=== PATIENT | male | born 1955 | race Hispanic/Latino ===

== ENCOUNTER 2016-12-13 12:52 | Observation (INO) | payer BC, MEDICAID ==
[2016-12-13 12:52] VITALS: BMI 25.0
[2016-12-13 13:03] VITALS: RESP 18
[2016-12-13] MEDS ORDERED: Sodium Chloride 0.9% 1,000 ML IV STA (13:26)
[2016-12-13 13:27] VITALS: TEMP 98
--- NOTE | 2016-12-13 13:28 | ED PDOC ---
Arrival/HPI - General Chief Complaint: Abdominal Pain Time Seen by Provider: 12/13/16 13:16 Historian: Patient - History of Present Illness Narrative History of Present Illness (Text): 12/13/16 13:25 A 61 year old male presents to the emergency department complaining of abdominal discomfort. Patient notes nausea and loss of appetite. Patient reports he had surgery done on 11/30/16 to remove an abdominal hernia. Patient denies any fever, vomiting, diarrhea, constipation, chest pain, shortness of breath, headache, dizziness, vision changes or any other complaints. Surgeon: Dr. Tripp Time/Duration: Prior to Arrival Symptom Course: Unchanged Quality: Other Context: Other Past Medical History - Provider Review Nursing Documentation Reviewed: Yes - Past History Past History: Non-Contributing - Infectious Disease Hx of Infectious Diseases: None - Tetanus Immunization Tetanus Immunization: Unknown - Reproductive Currently : No - Past Medical History Past Medical History: No Previous - Cardiac Hx Hypertension: Yes Hx Pacemaker: No - Pulmonary Hx Tuberculosis: No - Neurological Hx Paralysis: No - HEENT Hx HEENT Disorder: No - Renal Hx Renal Disorder: No - Endocrine/Metabolic Hx Endocrine Disorders: No - Hematological/Oncological Hx Blood Transfusions: No Hx Blood Transfusion Reaction: No - Integumentary Hx Dermatological Disorder: No Hx Basal Cell Carcinoma: No Hx Knowles: No Hx Cellulitis: No Hx Eczema: No Hx Melanoma: No Hx Psoriasis: No Hx Squamous Cell Carcinoma: No - Musculoskeletal/Rheumatological Hx Musculoskeletal Disorders: Yes - Gastrointestinal Hx Gastrointestinal Disorders: Yes Hx Bowel Surgery: Yes Hx Colitis: Yes Hx Colostomy: Yes Other/Comment: intestinal cyst historycolostomy - Genitourinary/Gynecological Hx Sexually Transmitted Diseases: No - Psychiatric Hx Anxiety: Yes Hx Depression: Yes Hx Substance Use: Yes (PAST COCAINE USE) - Surgical History Hx Orthopedic Surgery: Yes Other/Comment: Abdominal - colon resection - Anesthesia Hx Anesthesia Reactions: No Hx Malignant Hyperthermia: No - Suicidal Assessment Feels Threatened In Home Enviroment: No Family/Social History - Physician Review Nursing Documentation Reviewed: Yes Family/Social History: No Known Family HX Smoking Status: Heavy Smoker > 10 Cigarettes Daily Hx Alcohol Use: Yes (WAS 6PK/DAY;NOW ON OCCASION) Hx Substance Use: Yes (PAST COCAINE USE) Hx Substance Use Treatment: No Allergies/Home Meds Allergies/Adverse Reactions: Allergies seasonal Allergy (Uncoded 12/13/16 13:03) CONGESTION Home Medications: Home Meds Medication Instructions Recorded Confirmed Gabapentin [Neurontin] 100 mg PO DAILY 11/27/16 12/13/16 hydrOXYzine HCl [Atarax] 50 mg PO TID 11/27/16 12/13/16 Cyclobenzaprine [Flexeril] 0 mg PO DAILY 12/13/16 12/13/16 Naproxen [Anaprox] 500 mg PO BID PRN 12/13/16 12/13/16 Review of Systems - Physician Review All systems were reviewed & negative as marked: Yes - Review of Systems Constitutional: absent: Fevers Eyes: absent: Vision Changes Respiratory: absent: SOB Cardiovascular: absent: Chest Pain Gastrointestinal: Abdominal Pain, Nausea, Appetite Changes. absent: Constipation, Diarrhea, Vomiting Neurological: absent: Headache, Dizziness Physical Exam Vital Signs Reviewed: Yes Vital Signs Temp Pulse Resp BP Pulse Ox 12/13/16 14:52 63 18 133/87 98 12/13/16 12:59 98.0 F 92 H 18 136/90 96 Temperature: Afebrile Blood Pressure: Hypertensive Pulse: Regular Respiratory Rate: Normal Appearance: Positive for: Well-Appearing, Non-Toxic, Comfortable Pain Distress: None Mental Status: Positive for: Alert and Oriented X 3 - Systems Exam Head: Present: Atraumatic, Normocephalic Pupils: Present: PERRL Conjunctiva: Present: Normal Mouth: Present: Moist Mucous Membranes Neck: Present: Normal Range of Motion Respiratory/Chest: Present: Clear to Auscultation, Good Air Exchange. No: Respiratory Distress, Accessory Muscle Use Cardiovascular: Present: Regular Rate and Rhythm, Normal S1, S2. No: Murmurs Abdomen: Present: Normal Bowel Sounds, Scars (old surgical scar with dry area; no warmth or swelling). No: Tenderness, Distention, Peritoneal Signs Back: Present: Normal Inspection Upper Extremity: Present: Normal Inspection. No: Cyanosis, Edema Lower Extremity: Present: Normal Inspection. No: Edema Neurological: Present: GCS=15, CN II-XII Intact, Speech Normal Skin: Present: Warm, Dry, Normal Color. No: Rashes Psychiatric: Present: Alert, Oriented x 3, Normal Insight, Normal Concentration Medical Decision Making ED Course and Treatment: 12/13/16 13:25 Impression: A 61 year old male with abdominal discomfort. Patient notes nausea and a loss of appetite. Patient recently had abdominal surgery to remove a hernia. Plan: -- Abdomen and pelvis CT -- Chest xray -- EKG -- Labs -- Urinalysis -- Pepcid, IV fluids and Zofran -- Reassess and disposition - Lab Interpretations I have reviewed the lab results: Yes - Medication Orders Current Medication Orders: Discontinued Medications Famotidine (Pepcid) 20 mg IVP STAT STA Stop: 12/13/16 13:25 Last Admin: 12/13/16 13:48 Dose: 20 MG IVP Administration Document 12/13/16 13:48 OCS (Rec: 12/13/16 13:48 OCS [id number]) Charges for Administration # of IVP Administrations 1 Sodium Chloride (Sodium Chloride 0.9%) 1,000 mls @ 999 mls/hr IV .Q1H1M STA Stop: 12/13/16 14:26 Last Admin: 12/13/16 13:48 Dose: 999 MLS/HR eMAR Start Stop Document 12/13/16 13:48 OCS (Rec: 12/13/16 13:48 OCS [id number]) Intravenous Solution Start Date 12/13/16 Start Time 13:40 End Date 12/13/16 End time 14:41 Total Infusion Time 61 Iohexol (Omnipaque 240 (50 Ml)) Confirm Administered Dose 50 ml .ROUTE .STK-MED ONE Stop: 12/13/16 14:03 Ondansetron HCl (Zofran Inj) 4 mg IVP STAT STA Stop: 12/13/16 13:25 Last Admin: 12/13/16 13:39 Dose: 4 MG IVP Administration Document 12/13/16 13:39 OCS (Rec: 12/13/16 13:48 OCS [id number]) Charges for Administration # of IVP Administrations 1 ED OBSERVATION Discharge: Yes Date of observation admission: 12/13/16 Time of observation admission: 13:20 - Observation admission statement Patient is being placed in observation because:: Abdominal pain - Goals of Observation Goals of observation are:: Monitor and treat symptoms - Progress Note Progress Note: 12/13/16 13:20 Patient with abdominal pain. Will re-evaluate after medication. EKG shows NSR at [address]-segment elevations, normal intervals. Interpreted by me. 12/13/16 15:20 On re-evaluation, patient states his abdominal pain has improved after treatment. 12/13/16 16:46 Patient resting comfortably, in no acute distress. Pending CT results. Report Date : 12/13/2016 17:59:03 PROCEDURE: CT Abdomen and Pelvis with contrast Dictator : Shivam Vinson MD IMPRESSION: Satisfactory postoperative status. Additional benign and/or incidental findings described above. Report Date : 12/13/2016 18:14:19 Procedure: Chest xray Dictator : Shivam Vinson MD IMPRESSION: No active disease. No significant interval change compared to the prior examination(s). 12/13/16 18:25 Patient resting comfortably. 12/13/16 18:51 CT is unremarkable. Labs are unremarkable. Patient is tolerating po. Case discussed with Dr. Tripp who agreed with discharging patient and have him following up with him. - Scribe Statement The provider has reviewed the documentation as recorded by the Scribe aYri Stoner Provider Scribe Attestation: All medical record entries made by the Scribe were at my direction and personally dictated by me. I have reviewed the chart and agree that the record accurately reflects my personal performance of the history, physical exam, medical decision making, and the department course for this patient. I have also personally directed, reviewed, and agree with the discharge instructions and disposition. Disposition/Present on Arrival - Present on Arrival Any Indicators Present on Arrival: No History of DVT/PE: No History of Uncontrolled Diabetes: No Urinary Catheter: No History of Decub. Ulcer: No History Surgical Site Infection Following: Abdominal Surgery - Disposition Have Diagnosis and Disposition been Completed?: Yes Diagnosis: Abdominal pain Disposition: HOME/ ROUTINE Disposition Time: 13:20 Patient Plan: Discharge Patient Problems: Current Active Problems Problem Status Diagnosed Abdominal pain Acute Condition: GOOD
[2016-12-13 13:51] LABS: ADD MANUAL DIFF? NO
[2016-12-13 14:01] LABS: BASO # 0.02 K/mm3 (0.0-2.0); BASO % 0.2 % (0.0-3.0); EOS # 0.2 (0.0-0.7); EOS % 1.6 % (1.5-5.0); GRAN % 70.8 % (50.0-68.0); HEMATOCRIT 48.9 % (42.0-52.0); LYMPH # 2.2 (1.2-3.4); LYMPH % 19.5 % (22.0-35.0); MEAN CELL VOLUME 89.9 fL (80.0-105.0); MEAN CORPUSCULAR HGB CONC 35.6 g/dl (31.0-37.0); MEAN PLATELET VOLUME 9.3 fl (7.0-11.0); MONO # 0.9 (0.1-0.6); MONO % 7.9 % (1.0-6.0); PLATELET COUNT 416 10^3/uL (120.0-450.0); RED CELL DISTRIBUTION WIDTH 14.5 % (11.5-14.5)
[2016-12-13] MEDS ORDERED: Iohexol 240 (50 ml) ONE (14:02)
[2016-12-13 14:05] LABS: ALB/GLOB RATIO 1.1 (1.1-1.8); ALKALINE PHOSPHATASE 57 U/L (38-133); ALT/SGPT 10 U/L (7-56); AMYLASE 60 U/L (35-125); AST/SGOT 14 U/L (15-59); BILIRUBIN,TOTAL 0.6 mg/dL (0.2-1.3); BLOOD UREA NITROGEN 16 mg/dL (7-21); CALCIUM 9.7 mg/dL (8.4-10.5); CARBON DIOXIDE 33 mmol/L (21-33); CHLORIDE 96 mmol/L (98-107); GFR AFRICAN-AMERICAN > 60; GLUCOSE,RANDOM 125 mg/dL (70-110); LIPASE 159 U/L (23-300); POTASSIUM 3.7 mmol/L (3.6-5.0); SODIUM 139 mmol/L (132-148); TOTAL PROTEIN 8.1 g/dL (5.8-8.3)
[2016-12-13 14:08] LABS: INR 1.02 (0.93-1.08); PARTIAL THROMBOPLASTIN TIME 29.6 Seconds (23.7-30.8)
[2016-12-13 14:21] LABS: TROPONIN I < 0.01 ng/mL
[2016-12-13 15:08] VITALS: O2SAT 98
[2016-12-13 15:17] LABS: PH,URINE 6.5 (4.7-8.0); URINE BILIRUBIN NEGATIVE (NEGATIVE); URINE BLOOD SMALL (NEGATIVE); URINE GLUCOSE (UA) NEGATIVE (NEGATIVE); URINE KETONE NEGATIVE (NEGATIVE); URINE LEUKOCYTE ESTERASE NEGATIVE Leu/uL (NEGATIVE); URINE PROTEIN NEGATIVE mg/dL (<30 mg/dL); URINE UROBILINOGEN 0.2 E.U./dL (<1 E.U./dL)
[2016-12-13 15:18] LABS: URINE APPEARANCE CLEAR (CLEAR); URINE COLOR YELLOW (YELLOW)
[2016-12-13 15:22] LABS: URINE BACTERIA FEW (NEG); URINE EPITHELIAL CELLS 0 - 2 /hpf (0-5); URINE WBC 0 - 2 /hpf (0-6)
[2016-12-13] MEDS ORDERED: Iohexol 350 MG/100 ML VIAL ONE (17:17)
--- NOTE | 2016-12-13 18:00 | CT ---
PROCEDURE: CT Abdomen and Pelvis with contrast HISTORY: abdominal pain - post incisional hernia repair Relevant surgical history: Partial sigmoidectomy. COMPARISON: 10/27/2016. CT abdomen and pelvis. TECHNIQUE: Contrast dose: 100 cc Omnipaque 350 Radiation dose: Total exam DLP = 49.32 mGy-cm. FINDINGS: LOWER THORAX: Unremarkable. LIVER: Unremarkable. No gross lesion or ductal dilatation. GALLBLADDER AND BILE DUCTS: Unremarkable. PANCREAS: Unremarkable. No gross lesion or ductal dilatation. SPLEEN: Unremarkable. ADRENALS: Unremarkable. No mass. KIDNEYS AND URETERS: Unremarkable. No hydronephrosis. No solid mass. VASCULATURE: Unremarkable. No aortic aneurysm. BOWEL: Expected postoperative findings left lower quadrant related to incisional hernia repair with multiple small loculated seromas interposed between the rectus muscle and skin surface. The largest measured on the coronal images 2 0.9 cm. No intraperitoneal component. Greater degree of prominence midline periumbilical hernia likely represents distention of bowel rather than a new midline hernia. Proximal obstruction. Anastomotic suture line sigmoid colon unremarkable, unchanged. There is focal fecal debris, focal impaction without more proximal obstruction. However this finding was seen previously. APPENDIX: Normal appendix. PERITONEUM: Unremarkable. No free fluid. No free air. LYMPH NODES: Unremarkable. No enlarged lymph nodes. BLADDER: Unremarkable. REPRODUCTIVE: Unremarkable. BONES: No acute fracture. OTHER FINDINGS: None. IMPRESSION: Satisfactory postoperative status. Additional benign and/or incidental findings described above.
--- NOTE | 2016-12-13 18:15 | RAD ---
HISTORY: cough COMPARISON: 06/01/2016. TECHNIQUE: Chest PA and lateral FINDINGS: LUNGS: Paul for hyperinflation PLEURA: No significant pleural effusion identified. No pneumothorax apparent. CARDIOVASCULAR: Normal. OSSEOUS STRUCTURES: No significant abnormalities. VISUALIZED UPPER ABDOMEN: Normal. OTHER FINDINGS: None. IMPRESSION: No active disease. No significant interval change compared to the prior examination(s).
[2016-12-13 19:09] VITALS: BP 126/68; PULSE 65
--- NOTE | 2016-12-14 10:01 | CARD ---
APPROVED REPORT EKG Measurement Heart [id number] [id number] <Conclusion> Normal sinus rhythm NSSTW changes [id number] changes No change
== END 2016-12-13 18:55 | disposition home or self-care (01) ==
LOC: ED 12:52 → EROBSV 13:20
PROVIDERS: ADMIT Internal Medicine; ATTEND Internal Medicine
DX: R10.9 Unspecified abdominal pain (principal); F17.210 Nicotine dependence, cigarettes, uncomplicated; I10 Essential (primary) hypertension
CPT/HCPCS: 71020; 74177; 80053; 81001; 82150; 82550; 83605; 83615; 83690; 84484; 85025; 85610; 85730; 93005; 96361; 96374; 96375; 99283; G0378; J2405; J7040; Q9966

== ENCOUNTER 2017-01-09 15:35 | Inpatient (IN) | payer MEDICAID ==
[2017-01-09 15:35] VITALS: BMI 25.0
--- NOTE | 2017-01-09 15:44 | ED PDOC ---
Arrival/HPI - General Historian: Patient - History of Present Illness Time/Duration: Other (since yesterday) Context: Home - General Time Seen by Provider: 01/09/17 15:40 - History of Present Illness Narrative History of Present Illness (Text): 01/09/17 15:44 Wu Smallwood is a 61 year old male, whose past medical history includes depression, anxiety and hypertension, who presents to the emergency room complaining of suicidal ideation, anxiety, and feeling depressed since yesterday. He stated his medication are not longer working. He said last time he had suicidal ideation was last night. He lives alone, and he had financial problems. Family member lives in [place]. He smokes Marijuana daily. He denies hallucination, paranoia, or alcohol abuse. (Adalberto Ennis) Past Medical History - Provider Review Nursing Documentation Reviewed: Yes - Past History Past History: Non-Contributing - Infectious Disease Hx of Infectious Diseases: None - Tetanus Immunization Tetanus Immunization: Unknown - Reproductive Currently : No - Past Medical History Past Medical History: No Previous - Cardiac Hx Hypertension: Yes Hx Pacemaker: No - Pulmonary Hx Tuberculosis: No - Neurological Hx Paralysis: No - HEENT Hx HEENT Disorder: No - Renal Hx Renal Disorder: No - Endocrine/Metabolic Hx Endocrine Disorders: No - Hematological/Oncological Hx Blood Transfusions: No Hx Blood Transfusion Reaction: No - Integumentary Hx Dermatological Disorder: No Hx Basal Cell Carcinoma: No Hx Knowles: No Hx Cellulitis: No Hx Eczema: No Hx Melanoma: No Hx Psoriasis: No Hx Squamous Cell Carcinoma: No - Musculoskeletal/Rheumatological Hx Musculoskeletal Disorders: Yes - Gastrointestinal Hx Gastrointestinal Disorders: Yes Hx Bowel Surgery: Yes Hx Colitis: Yes Hx Colostomy: Yes Other/Comment: intestinal cyst historycolostomy - Genitourinary/Gynecological Hx Sexually Transmitted Diseases: No - Psychiatric Hx Anxiety: Yes Hx Depression: Yes Hx Substance Use: Yes (PAST COCAINE USE) - Surgical History Hx Orthopedic Surgery: Yes Other/Comment: Abdominal - colon resection - Anesthesia Hx Anesthesia Reactions: No Hx Malignant Hyperthermia: No - Suicidal Assessment Feels Threatened In Home Enviroment: No Family/Social History - Physician Review Nursing Documentation Reviewed: Yes Family/Social History: No Known Family HX Smoking Status: Heavy Smoker > 10 Cigarettes Daily Hx Alcohol Use: Yes (WAS 6PK/DAY;NOW ON OCCASION) Hx Substance Use: Yes (PAST COCAINE USE) Hx Substance Use Treatment: No Allergies/Home Meds Allergies/Adverse Reactions: Allergies seasonal Allergy (Uncoded 01/09/17 15:45) CONGESTION Home Medications: Home Meds Medication Instructions Recorded Confirmed Gabapentin [Neurontin] 100 mg PO DAILY 11/27/16 01/09/17 hydrOXYzine HCl [Atarax] 50 mg PO TID 11/27/16 01/09/17 Cyclobenzaprine [Flexeril] 0 mg PO DAILY 12/13/16 01/09/17 Naproxen [Anaprox] 500 mg PO BID PRN 12/13/16 01/09/17 Diclofenac [Diclofenac Sodium] 100 mg PO 01/09/17 Review of Systems - Review of Systems Constitutional: Normal. absent: Fatigue, Weight Change, Fevers Eyes: Normal ENT: Normal. absent: Sore Throat, Rhinorrhea Respiratory: Normal. absent: SOB, Cough, Sputum, Wheezing Cardiovascular: Normal. absent: Chest Pain, Palpitations, Edema Gastrointestinal: Normal. absent: Abdominal Pain, Nausea, Vomiting Genitourinary Male: Normal. absent: Dysuria, Frequency, Hematuria Musculoskeletal: Normal. absent: Back Pain, Neck Pain, Myalgias Skin: Normal. absent: Rash Neurological: Normal. absent: Headache, Dizziness, Focal Weakness, Gait Changes , Speech Changes, Facial Droop, Disequilibrium, Seizure Endocrine: Normal Hemo/Lymphatic: Normal Psychiatric: Anxiety, Depression, Suicidal Ideation Physical Exam Temperature: Afebrile Blood Pressure: Normal Pulse: Regular Respiratory Rate: Normal Appearance: Positive for: Well-Appearing, Non-Toxic, Comfortable Pain Distress: None Mental Status: Positive for: Alert and Oriented X 3 - Systems Exam Head: Present: Atraumatic, Normocephalic Pupils: Present: PERRL Extroacular Muscles: Present: EOMI Conjunctiva: Present: Normal Mouth: Present: Moist Mucous Membranes Neck: Present: Normal Range of Motion. No: Meningeal Signs Respiratory/Chest: Present: Clear to Auscultation, Good Air Exchange. No: Respiratory Distress, Accessory Muscle Use Cardiovascular: Present: Regular Rate and Rhythm, Normal S1, S2. No: Murmurs Abdomen: Present: Normal Bowel Sounds. No: Tenderness, Distention, Peritoneal Signs Back: Present: Normal Inspection. No: CVA Tenderness Upper Extremity: Present: Normal Inspection, Normal ROM, NORMAL PULSES, Neurovascularly Intact, Capillary Refill < 2s. No: Cyanosis, Edema Lower Extremity: Present: Normal Inspection, NORMAL PULSES, Normal ROM, Neurovascularly Intact, Capillary Refill < 2 s. No: Edema, CALF TENDERNESS Neurological: Present: GCS=15, CN II-XII Intact, Speech Normal, Motor Func Grossly Intact, Normal Sensory Function, Normal Cerebellar Funct, Norm Deep Tendon Reflexes, Gait Normal, Memory Normal Skin: Present: Warm, Dry, Normal Color. No: Rashes Psychiatric: Present: Alert, Oriented x 3 Vital Signs Temp Pulse Resp BP Pulse Ox 01/10/17 03:40 47 L 16 134/69 89 L 01/09/17 20:37 98.0 F 59 L 18 127/72 97 01/09/17 18:22 51 L 16 119/71 97 01/09/17 18:19 74 18 111/75 100 01/09/17 18:16 51 L 14 131/52 L 97 01/09/17 17:29 68 18 119/75 95 01/09/17 15:55 98.5 F 76 24 146/73 100 01/09/17 15:40 98.8 F 80 16 129/81 99 Medical Decision Making Re-evaluation Time: 19:03 Reassessment Condition: Re-examined, Improved - Lab Interpretations I have reviewed the lab results: Yes Interpretation: No sign. chg./baseline - EKG Interpretation Interpreted by ED Physician: Yes (NSR @ 71 bpm. Normal interval. No ST changes ) Type: 12 lead EKG Comparison: No previous EKG avail. ED Course and Treatment: 01/09/17 19:00 I spoke with Connie mendez. She stated she spoke with Dr. Ovalles and they are recommending admission for major depression, and cannabis abuse (Raymon, Adalberto Bah) 01/10/17 05:12 Patient was seen by Dr. Webb and not signed out, but psych needed a note of medical clearance. 01/10/17 05:13 The patient was medically cleared for psych admission. (Jasper Salinas) - Lab Interpretations Lab Results: 01/09/17 16:23 01/09/17 16:23 Lab Results 01/09/17 17:44: Urine Color Yellow, Urine Appearance Clear, Urine pH 6.5, Ur Specific [place] 1.010, Urine Protein Negative, Urine Glucose (UA) Negative, Urine Ketones Negative, Urine Blood Small H, Urine Nitrate Negative, Urine Bilirubin Negative, Urine Urobilinogen 0.2, Ur Leukocyte Esterase Negative, Urine RBC 1 - 3, Urine WBC 0 - 2, Ur Epithelial Cells 0 - 2, Urine Opiates Screen Negative, Urine Methadone Screen Negative, Ur Barbiturates Screen Negative, Ur Phencyclidine Scrn Negative, Ur Amphetamines Screen Negative, U Benzodiazepines Scrn Negative, U Oth Cocaine Metabols Negative, U Cannabinoids Screen Positive H 01/09/17 16:23: WBC 9.0, RBC 4.80, Hgb 15.4, Hct 43.0, MCV 89.6, MCH 32.1, MCHC 35.8, RDW 14.3, Plt Count 317, MPV 8.8, Gran % 66.6, Lymph % (Auto) 25.5, [place] % (Auto) 6.8 H, Eos % (Auto) 1.0 L, Baso % (Auto) 0.1, Gran # 6.01, Lymph # 2.3 , [place] # 0.6, Eos # 0.1, Baso # 0.01, Sodium 137, Potassium 3.5 L, Chloride 97, Carbon Dioxide 28, Anion Gap 16, BUN 12, Creatinine 1.0, Est GFR ( Amer) > 60, Est GFR (Non-Af Amer) > 60, Random Glucose 116 H, Calcium 9.5, Total Bilirubin 0.4, AST 16, ALT 18, Alkaline Phosphatase 52, Total Protein 7.1, Albumin 4.0, Globulin 3.1, Albumin/Globulin Ratio 1.3, Salicylates < 1 L, Acetaminophen < 10.0 L, Alcohol, Quantitative < 10 - RAD Interpretation Narrative RAD Interpretations (Text): 01/09/17 16:40 CXR: NAD (Adalberto Ennis P) Radiology Orders: 01/09/17 16:05 CHEST PORTABLE [RAD] Stat Disposition/Present on Arrival - Present on Arrival Any Indicators Present on Arrival: No History of DVT/PE: No History of Uncontrolled Diabetes: No Urinary Catheter: No History Surgical Site Infection Followin - Disposition Have Diagnosis and Disposition been Completed?: Yes Disposition Time: 19:05 Patient Plan: Admission - Disposition Diagnosis: Major depression, Cannabis abuse Disposition: HOSPITALIZED Condition: STABLE
[2017-01-09 16:29] LABS: ADD MANUAL DIFF? NO
[2017-01-09 16:36] LABS: BASO # 0.01 K/mm3 (0.0-2.0); BASO % 0.1 % (0.0-3.0); EOS # 0.1 (0.0-0.7); GRAN # 6.01 (1.4-6.5); GRAN % 66.6 % (50.0-68.0); LYMPH # 2.3 (1.2-3.4); LYMPH % 25.5 % (22.0-35.0); MEAN CELL VOLUME 89.6 fL (80.0-105.0); MEAN CORPUSCULAR HEMOGLOBIN 32.1 pg (25.0-35.0); MEAN CORPUSCULAR HGB CONC 35.8 g/dl (31.0-37.0); MEAN PLATELET VOLUME 8.8 fl (7.0-11.0); MONO # 0.6 (0.1-0.6); MONO % 6.8 % (1.0-6.0); PLATELET COUNT 317 10^3/uL (120.0-450.0); RED CELL DISTRIBUTION WIDTH 14.3 % (11.5-14.5)
[2017-01-09 16:45] LABS: ALB/GLOB RATIO 1.3 (1.1-1.8); ALKALINE PHOSPHATASE 52 U/L (38-133); ALT/SGPT 18 U/L (7-56); AST/SGOT 16 U/L (15-59); BILIRUBIN,TOTAL 0.4 mg/dL (0.2-1.3); BLOOD UREA NITROGEN 12 mg/dL (7-21); CALCIUM 9.5 mg/dL (8.4-10.5); CARBON DIOXIDE 28 mmol/L (21-33); CHLORIDE 97 mmol/L (95-110); GFR AFRICAN-AMERICAN > 60; GLUCOSE,RANDOM 116 mg/dL (70-110); POTASSIUM 3.5 mmol/L (3.6-5.0); SODIUM 137 mmol/L (132-148); TOTAL PROTEIN 7.1 g/dL (5.8-8.3)
[2017-01-09 17:54] LABS: PH,URINE 6.5 (4.7-8.0); URINE BILIRUBIN NEGATIVE (NEGATIVE); URINE BLOOD SMALL (NEGATIVE); URINE GLUCOSE (UA) NEGATIVE (NEGATIVE); URINE KETONE NEGATIVE (NEGATIVE); URINE LEUKOCYTE ESTERASE NEGATIVE Leu/uL (NEGATIVE); URINE PROTEIN NEGATIVE mg/dL (<30 mg/dL); URINE UROBILINOGEN 0.2 E.U./dL (<1 E.U./dL)
[2017-01-09 17:57] LABS: URINE APPEARANCE CLEAR (CLEAR); URINE COLOR YELLOW (YELLOW)
[2017-01-09 18:13] LABS: URINE WBC 0 - 2 /hpf (0-6)
[2017-01-09 18:14] LABS: URINE EPITHELIAL CELLS 0 - 2 /hpf (0-5)
--- NOTE | 2017-01-10 09:46 | RAD ---
HISTORY: Psych evaluation. Technique: Single view portable semi erect @ 16:19. COMPARISON: 12/13/2016. FINDINGS: LUNGS: No active pulmonary disease. PLEURA: No significant pleural effusion identified, no pneumothorax apparent. CARDIOVASCULAR: No radiographic findings to suggest acute or significant cardiovascular disease. OSSEOUS STRUCTURES: No significant abnormalities. VISUALIZED UPPER ABDOMEN: Normal. OTHER FINDINGS: None. IMPRESSION: No active disease. No acute/significant interval changes. Concordant results with the preliminary interpretation rendered by the emergency department physician procedure.
[2017-01-10 10:13] VITALS: O2SAT 94
[2017-01-10] MEDS ORDERED: Potassium Chloride 20 mEq ER Tab PO STA (10:32)
--- NOTE | 2017-01-10 10:47 | CARD ---
APPROVED REPORT EKG Measurement Heart [id number] [id number] <Conclusion> Normal sinus rhythm Normal ECG
[2017-01-10] MEDS ORDERED: Magnesium Hydroxide Susp 30 ml UD PO PRN (13:11)
[2017-01-11 07:18] LABS: CHOLESTEROL 156 mg/dL (130-200); GLUCOSE,FASTING 91 mg/dL (65-110)
[2017-01-11 07:47] LABS: THYROID STIMULATING HORMONE 2.05 mIU/mL (0.46-4.68)
[2017-01-11 08:35] LABS: BLOOD UREA NITROGEN 12 mg/dL (7-21); CALCIUM 8.8 mg/dL (8.4-10.5); CARBON DIOXIDE 27 mmol/L (21-33); CHLORIDE 102 mmol/L (98-107); GFR AFRICAN-AMERICAN > 60; GLUCOSE,RANDOM 88 mg/dL (70-110); POTASSIUM 3.9 mmol/L (3.6-5.0); SODIUM 135 mmol/L (132-148)
--- NOTE | 2017-01-11 11:53 | PCM.PSYCH ---
Initial Psychiatric Evaluation - Initial Psychiatric Evaluation Type of Admission: Voluntary Legal Status: Capacity History of Present Illness and Precipitating Events: Patient is 61yo SWM with h/o depression and anxiety, h/o multiple admissions in the past (most recent was 05/2016 at [facility] pt lives independently, has poor social support, currently on unemployment for trauma at work, multiple medical problems such as partial colon resection for his diverticulosis, h/o rheumatoid arthritis, was admitted for evaluation and stabilization of depressive symptoms , worsening of anxiety, inability to function and passive wishes I reviewed recent notes and met with patient at bedside as well as during treatment team meeting. He is groomed and well oriented to circumstances. Presented as calm and cooperative and can communicate needs well. Indicated he remains depressed and anxious. Denies any major stressors precipitating the symptoms. He denies having any suicidal thoughts or thoughts to harm others. Regarding perceptual disturbance he denies having any hallucinations and does not appear to be responding to internal stimuli. Patient responses are relevant to questioning and they are consistent. That's far he is tolerating his medications and denies any side effects. He denies any discomfort or pain and there were no behavioral issues overnight. SOCIAL HISTORY Resides by himself. Single. No kids. Smokes 1 PPD, no drug or alcohol issues. Patient denies any drug or alcohol issues. He smokes tobacco one pack per day and is agreeable to a nicotine patch to help with nicotine withdrawal. He was apprised about the morbidity and mortality risks associated with continued tobacco use. PSYCHIATRIC HISTORY ~Multiple admissions. Most recently 06/02/16-06/13/16. Discharged on: Effexor XR 150 mg po daily for depression and anxiety Abilify 10 mg po daily to augment for depression Klonopin 0.5 tid for anxiety Trazodone 100 mg po HS for depression and off-label for insomnia was continued. ~Given Diagnosis of (1) MERCEDES (generalized anxiety disorder) (2) MDD (major depressive disorder), recurrent episode, severe (3) Neurocognitive disorder ~Other admissions occurred in 02/2016, 07/2015 at [facility] ~No reported SA ~Patient is currently in psychiatric outpatient treatment with Dr. Shama Betancur. He has been in treatment with the psychiatrist for eight months. His most recent appointment was on December 17 2016. Indicates that he has been compliant with his outpatient psychiatric medications Current Medications: Active Medications Generic Name Dose Route Start Last Admin Trade Name Freq PRN Reason Stop Dose Admin Acetaminophen 650 mg 01/10/17 13:09 Tylenol 325mg Tab PO Q6H PRN Fever >100.4 F Al Hydrox/Mg Hydrox/Simethicone 30 ml 01/10/17 13:10 Maalox Plus 30 Ml PO DAILY PRN Indigestion / Heartburn Clonazepam 0.5 mg 01/10/17 22:00 01/10/17 22:01 Klonopin PO 0.5 mg HS JASON Administration Protocol Gabapentin 100 mg 01/10/17 18:00 01/10/17 17:53 Neurontin PO 100 mg TID JASON Administration Protocol Hydroxyzine Pamoate 50 mg 01/10/17 22:00 01/10/17 22:01 Vistaril PO 50 mg HS JASON Administration Protocol Magnesium Hydroxide 30 ml 01/10/17 13:11 Milk Of Magnesia PO DAILY PRN Constipation Nicotine 1 patch 01/10/17 17:30 01/10/17 17:57 Nicoderm Cq TD 1 patch DAILY JASON Administration Trazodone HCl 100 mg 01/10/17 22:00 Desyrel PO HS PRN Sleep Venlafaxine HCl 150 mg 01/10/17 13:15 01/10/17 13:31 Effexor PO 150 mg DAILY JASON Administration Past Psychiatric History - Past Psychiatric History Pertinent Medical Hx (Current Medical&Sleep Prob, Allergies): Allergies Allergy/AdvReac Type Severity Reaction Status Date / Time seasonal Allergy CONGESTION Uncoded 01/10/17 12:22 Venlafaxine [Effexor XR] 150 mg PO DAILY #0 cer 06/13/16 clonazePAM [Klonopin] 0.5 mg PO HS #0 tab 06/13/16 traZODone [Desyrel] 100 mg PO HS PRN #0 tab 06/13/16 Gabapentin [Neurontin] 100 mg PO DAILY 11/27/16 hydrOXYzine HCl [Atarax] 50 mg PO TID 11/27/16 Cyclobenzaprine [Flexeril] 0 mg PO DAILY 12/13/16 Naproxen [Anaprox] 500 mg PO BID PRN 12/13/16 Diclofenac [Diclofenac Sodium] 100 mg PO 01/09/17 Mental Status Examination - Affect Affect: Constricted - Motor Activity Motor Activity: Calm - Reliability in Providing Information Reliability in Providing Information: Fair - Speech Speech: Organized - Mood Mood: Depressed, Anxious - Formal Thought Process Formal Thought Process: No Impairment - Obsessions/Compulsions Obsessions: No Compulsions: No - Cognitive Functions Orientation: Person, Place, Situation Judgement: Intact, as evidence by: Good judgement, Intact, as evidence by: Insight regarding need for hospitalization - Risk Risk: Suicidal, Diminished functioning DSM 5 DX - DSM 5 DSM 5 Diagnosis: MDD (major depressive disorder), recurrent episode, severe MERCEDES (generalized anxiety disorder) Neurocognitive disorder - Recommended/Plan of Treatment Treatment Recommendations and Plan of Treatment: * Group, milieu and supportive tx * c/w Effexor XR 150 mg po daily for depression and anxiety * c/w klonopin 0.5 mg HS for anxiety * c/w Neurontin 100 mg po TID for anxiety * c/w Vistaril 50 mg HS for anxiety * Awaiting medical consult * Vitals reviewed and noted below: Selected Entries 01/11/17 08:33 Temperature 97.6 F Pulse Rate 50 L Respiratory 20 Rate Blood Pressure 109/65 RECENT FLOOR LABS NOTED BELOW 01/11/17 08:00 Sodium 135 Potassium 3.9 Chloride 102 Carbon Dioxide 27 Anion Gap 10 BUN 12 Creatinine 0.9 Est GFR (Non-Af Amer) > 60 Random Glucose 88 Calcium 8.8 ER LABS AND STUDIES 01/09/17 17:44: Urine Color Yellow, Urine Appearance Clear, Urine pH 6.5, Ur Specific [place] 1.010, Urine Protein Negative, Urine Glucose (UA) Negative, Urine Ketones Negative, Urine Blood Small H, Urine Nitrate Negative, Urine Bilirubin Negative, Urine Urobilinogen 0.2, Ur Leukocyte Esterase Negative, Urine RBC 1 - 3, Urine WBC 0 - 2, Ur Epithelial Cells 0 - 2, Urine Opiates Screen Negative, Urine Methadone Screen Negative, Ur Barbiturates Screen Negative, Ur Phencyclidine Scrn Negative, Ur Amphetamines Screen Negative, U Benzodiazepines Scrn Negative, U Oth Cocaine Metabols Negative, U Cannabinoids Screen Positive H 01/09/17 16:23: WBC 9.0, RBC 4.80, Hgb 15.4, Hct 43.0, MCV 89.6, MCH 32.1, MCHC 35.8, RDW 14.3, Plt Count 317, MPV 8.8, Gran % 66.6, Lymph % (Auto) 25.5, [place] % (Auto) 6.8 H, Eos % (Auto) 1.0 L, Baso % (Auto) 0.1, Gran # 6.01, Lymph # 2.3 , [place] # 0.6, Eos # 0.1, Baso # 0.01, Sodium 137, Potassium 3.5 L, Chloride 97, Carbon Dioxide 28, Anion Gap 16, BUN 12, Creatinine 1.0, Est GFR ( Amer) > 60, Est GFR (Non-Af Amer) > 60, Random Glucose 116 H, Calcium 9.5, Total Bilirubin 0.4, AST 16, ALT 18, Alkaline Phosphatase 52, Total Protein 7.1, Albumin 4.0, Globulin 3.1, Albumin/Globulin Ratio 1.3, Salicylates < 1 L, Acetaminophen < 10.0 L, Alcohol, Quantitative < 10 01/09/17 16:40 CXR: NAD (Adalberto Ennis P) - Smoking Cessation Smoking Cessation Initiated: Yes
--- NOTE | 2017-01-11 14:02 | CP.PCM.CON ---
<Lux Eisenberg - Last Filed: 01/11/17 13:50> History of Present Illness - History of Present Illness History of Present Illness: Patient is a 61 y/o M with past medical hx of HTN, diverticulitis, anxiety, and depression who presents with complaint of worsening anxiety or depression. He states he has felt like this the past 2 years but over the last 2 weeks it has gotten progressively worse. He says he is preoccupied with "trying to not get thrown out into the streets." He reports a decrease in appetite, sleep, and energy. He describes his mood as "angry at feeling this way." He denies any suicidal or homicidal ideations, or audio/visual hallucinations. He currently denies any nausea, vomiting, chest pain, palpitations, fever, chills, SOB, constipation, dysuria, or diarrhea. He states he takes medications at home for depression but is unable to recall the names or his pharmacy location. PMD: Bre [place] Past medical hx:HTN, diverticulitis, anxiety, and depression, abdominal hernia Past surgical hx:colon resection, hernia repair Family hx: father had unknown psych disorders Social hx: lives alone, occasional alcohol and marijuana use, pack a day smoker Allergies: seasonal Review of Systems - Constitutional Constitutional: absent: Chills, Fever - EENT Eyes: absent: Change in Vision Ears: absent: Decreased Hearing, Abnormal Hearing Nose/Mouth/Throat: absent: Dry Mouth, Tongue Swelling - Cardiovascular Cardiovascular: absent: Chest Pain, Dyspnea, Leg Edema - Respiratory Respiratory: absent: Cough, Dyspnea - Gastrointestinal Gastrointestinal: absent: Constipation, Diarrhea, Nausea, Vomiting - Genitourinary Genitourinary: absent: Dysuria - Musculoskeletal Musculoskeletal: absent: Muscle Weakness, Numbness, Tingling - Integumentary Integumentary: absent: Lesions, Rash, Wounds - Neurological Neurological: absent: Numbness, Headaches, Tremor, Weakness - Psychiatric Psychiatric: Anxiety, Depression. absent: Auditory Hallucinations, Suicidal Ideation, Visual Hallucinations - Endocrine Endocrine: absent: Fatigue, Palpitations - Hematologic/Lymphatic Hematologic: absent: Easy Bleeding, Lymphadenopathy Past Patient History - Infectious Disease Hx of Infectious Diseases: None - Tetanus Immunizations Tetanus Immunization: Unknown - Past Medical History & Family History Past Medical History?: Yes - Past Social History Smoking Status: Heavy Smoker > 10 Cigarettes Daily Alcohol: Occasional Drugs: Cannabis Home Situation {Lives}: Alone - CARDIAC Hx Hypertension: Yes Hx Pacemaker: No - PULMONARY Hx Respiratory Disorders: No Hx Tuberculosis: No - NEUROLOGICAL Hx Neurological Disorder: No Hx Paralysis: No - HEENT Hx HEENT Problems: No - RENAL Hx Chronic Kidney Disease: No - ENDOCRINE/METABOLIC Hx Endocrine Disorders: No - HEMATOLOGICAL/ONCOLOGICAL Hx Blood Disorders: No Hx Blood Transfusions: No Hx Blood Transfusion Reaction: No - INTEGUMENTARY Hx Dermatological Problems: No Hx Basil Cell: No Hx Knowles: No Hx Cellulitis: No Hx Eczema: No Hx Melanoma: No Hx Psoriasis: No Hx Squamous Cell: No - MUSCULOSKELETAL/RHEUMATOLOGICAL Hx Musculoskeletal Disorders: Yes - GASTROINTESTINAL Hx Gastrointestinal Disorders: Yes Hx Bowel Surgery: Yes Hx Colitis: Yes Hx Colostomy: Yes Other/Comment: intestinal cyst historycolostomy - GENITOURINARY/GYNECOLOGICAL Hx Genitourinary Disorders: No Hx Sexually Transmitted Disorders: No - PSYCHIATRIC Hx Psychophysiologic Disorder: No Hx Anxiety: Yes Hx Bipolar Disorder: Yes Hx Depression: Yes Hx Emotional Abuse: No Hx Physical Abuse: No Hx Sexual Abuse: No Hx Substance Use: No - SURGICAL HISTORY Hx Surgeries: Yes Hx Orthopedic Surgery: Yes Other/Comment: Abdominal - colon resection - ANESTHESIA Hx Anesthesia: Yes Hx Anesthesia Reactions: No Hx Malignant Hyperthermia: No Meds Allergies/Adverse Reactions: Allergies Allergy/AdvReac Type Severity Reaction Status Date / Time seasonal Allergy CONGESTION Uncoded 01/10/17 12:22 - Medications Medications: Current Medications Acetaminophen (Tylenol 325mg Tab) 650 mg PO Q6H PRN PRN Reason: Fever >100.4 F Al Hydrox/Mg Hydrox/Simethicone (Maalox Plus 30 Ml) 30 ml PO DAILY PRN PRN Reason: Indigestion / Heartburn Clonazepam (Klonopin) 0.5 mg PO HS JASON PRN Reason: Protocol Last Admin: 01/10/17 22:01 Dose: 0.5 mg Gabapentin (Neurontin) 100 mg PO TID JASON PRN Reason: Protocol Last Admin: 01/11/17 13:37 Dose: 100 mg Hydroxyzine Pamoate (Vistaril) 50 mg PO HS JASON PRN Reason: Protocol Last Admin: 01/10/17 22:01 Dose: 50 mg Magnesium Hydroxide (Milk Of Magnesia) 30 ml PO DAILY PRN PRN Reason: Constipation Nicotine (Nicoderm Cq) 1 patch TD DAILY JASON Last Admin: 01/11/17 10:03 Dose: 1 patch Trazodone HCl (Desyrel) 100 mg PO HS PRN PRN Reason: Sleep Venlafaxine HCl (Effexor) 150 mg PO DAILY [facility] Last Admin: 01/11/17 10:03 Dose: 150 mg Physical Exam - Constitutional Appears: Non-toxic, No Acute Distress - Head Exam Head Exam: ATRAUMATIC, NORMAL INSPECTION, NORMOCEPHALIC - Eye Exam Eye Exam: EOMI, Normal appearance, PERRL Pupil Exam: NORMAL ACCOMODATION, PERRL - ENT Exam ENT Exam: Mucous Membranes Moist. absent: Normal Oropharynx (poor dentition) - Neck Exam Neck exam: Positive for: Normal Inspection. Negative for: Tenderness - Respiratory Exam Respiratory Exam: Clear to Auscultation Bilateral, NORMAL BREATHING PATTERN. absent: Rales, Rhonchi, Wheezes - Cardiovascular Exam Cardiovascular Exam: REGULAR RHYTHM, +S1, +S2. absent: Gallop, Rubs, Systolic Murmur - GI/Abdominal Exam GI & Abdominal Exam: Normal Bowel Sounds, Soft. absent: Tenderness - Extremities Exam Extremities exam: Positive for: normal capillary refill, normal inspection, pedal pulses present. Negative for: pedal edema, tenderness - Back Exam Back exam: NORMAL INSPECTION. absent: rash noted, tenderness - Neurological Exam Neurological exam: Alert, CN II-XII Intact, Oriented x3 - Psychiatric Exam Psychiatric exam: Depressed - Skin Skin Exam: Dry, Intact, Warm Results - Vital Signs Recent Vital Signs: Last Vital Signs Temp 97.6 F 01/11/17 08:33 Pulse 50 L 01/11/17 08:33 Resp 20 01/11/17 08:33 BP 109/65 01/11/17 08:33 Pulse Ox 94 L 01/10/17 10:13 - Labs Result Diagrams: 01/09/17 16:23 01/11/17 08:00 Labs: Laboratory Results - last 24 hr 01/11/17 01/11/17 06:50 08:00 Sodium 135 Potassium 3.9 Chloride 102 Carbon Dioxide 27 Anion Gap 10 BUN 12 Creatinine 0.9 Est GFR ( Amer) > 60 Est GFR (Non-Af Amer) > 60 Random Glucose 88 Fasting Glucose 91 Calcium 8.8 Triglycerides 213 H Cholesterol 156 LDL Cholesterol Direct 91 HDL Cholesterol 24 L Free T4 1.00 TSH 3rd Generation 2.05 Assessment & Plan - Assessment and Plan (Free Text) Assessment: 61 y/o male with pmh of HTN, anxiety, depression, diverticulitis s/p colon resection, abdominal hernia s/p hernia repair who presents with complaint of worsening anxiety and depression. Plan: 1) Anxiety/ Depression * Management as per psychiatry * Patient on Trazadone, Effexor, Gabapentin, and Klonopin * continue current medical course * encouraged to attend groups and therapy * 1:1 sitter 2) HTN * BP wnl * resume home cozaar 100mg daily * hold BP med if hypotensive 3) Electrolyte abnormality * Initial potassium 3.5 * replenished and currently 3.9 * no changes on initial EKG * replenish as needed 4) HLD * patient encouraged to exercise daily and monitor diet 5) Substance use * counselled on importance of cessation of marijuana, alcohol, and tobacco. * nicotine patch TD 6) PPX * Tylenol * Hydroxyzine * Mag Ox * Aluminum hydroxide Assessment and plan discussed with attending physician. <Lidya Arceo - Last Filed: 01/11/17 15:08> Meds - Medications Medications: Current Medications Acetaminophen (Tylenol 325mg Tab) 650 mg PO Q6H PRN PRN Reason: Fever >100.4 F Al Hydrox/Mg Hydrox/Simethicone (Maalox Plus 30 Ml) 30 ml PO DAILY PRN PRN Reason: Indigestion / Heartburn Clonazepam (Klonopin) 0.5 mg PO HS JASON PRN Reason: Protocol Last Admin: 01/10/17 22:01 Dose: 0.5 mg Gabapentin (Neurontin) 100 mg PO TID JASON PRN Reason: Protocol Last Admin: 01/11/17 13:37 Dose: 100 mg Hydroxyzine Pamoate (Vistaril) 50 mg PO HS JASON PRN Reason: Protocol Last Admin: 01/10/17 22:01 Dose: 50 mg Losartan Potassium (Cozaar) 100 mg PO DAILY JASON Magnesium Hydroxide (Milk Of Magnesia) 30 ml PO DAILY PRN PRN Reason: Constipation Nicotine (Nicoderm Cq) 1 patch TD DAILY [facility] Last Admin: 01/11/17 10:03 Dose: 1 patch Trazodone HCl (Desyrel) 100 mg PO HS PRN PRN Reason: Sleep Venlafaxine HCl (Effexor) 150 mg PO DAILY JASON Last Admin: 01/11/17 10:03 Dose: 150 mg Results - Vital Signs Recent Vital Signs: Last Vital Signs Temp 97.6 F 01/11/17 08:33 Pulse 50 L 01/11/17 08:33 Resp 20 01/11/17 08:33 BP 109/65 01/11/17 08:33 Pulse Ox 94 L 01/10/17 10:13 - Labs Result Diagrams: 01/09/17 16:23 01/11/17 08:00 Labs: Laboratory Results - last 24 hr 01/11/17 01/11/17 06:50 08:00 Sodium 135 Potassium 3.9 Chloride 102 Carbon Dioxide 27 Anion Gap 10 BUN 12 Creatinine 0.9 Est GFR ( Amer) > 60 Est GFR (Non-Af Amer) > 60 Random Glucose 88 Fasting Glucose 91 Calcium 8.8 Triglycerides 213 H Cholesterol 156 LDL Cholesterol Direct 91 HDL Cholesterol 24 L Free T4 1.00 TSH 3rd Generation 2.05 Attending/Attestation - Attestation I have personally seen and examined this patient.: Yes I have fully participated in the care of the patient.: Yes I have reviewed all pertinent clinical information: Yes Notes (Text): 01/11/17 15:03 MEDICAL CONSULTATION 61 year old male with past medical history of hypertension, depression and anxiety who presented with complaint of worsening anxiety and depression. He is currently admitted in the psychiatry unit. Medical consultation was requested for medical evaluation. Continue management for anxiety/depression as per psychiatrist. He is currently on trazadone, effexor, gabapentin and klonopin. He is on cozaar for history of hypertension. Recommend to hold medication if he is hypotensive. He initially had hypokalemia which was repleted and repeat level is okay. He was counselled on smoking cessation. Continue with nicoderm patch. Thank you Dr. Ovalles for allowing me to participate in the care of this patient. Please re-consult as needed. Lidya Arceo MD Hospitalist.
[2017-01-11] MEDS: Alum-Mag Hydrox-Simethicone Susp (30 mL) PO PRN (14:30)
--- NOTE | 2017-01-12 09:12 | PCM.PYCHPN ---
Psychiatric Progress Note - Psychiatric Progress Note Patient seen today, length of contact: 25 min Problems Identified/Issues Discussed: I reviewed recent notes and met with patient at bedside. Patient remains well- oriented to circumstances and cooperative with questioning. Focus is good. He reports feeling a little bit better and more hopeful since yesterday. He denies any new concerns and has been tolerating his medications. Denies any new discomfort or pain. Thought process is overall coherent and responses are relevant to questioning. He denies having any hallucinations and does not appear to be responding to internal stimuli. Delusions were not elicited during our meeting. Nursing notes indicate the patient has generally been a good control. He has been calm, quiet and visible on the unit but not interactive. Looks comfortable. There were no behavioral issues overnight Diagnostic Results: MDD (major depressive disorder), recurrent episode, severe MERCEDES (generalized anxiety disorder) Neurocognitive disorder Medication Change: No Medical Record Reviewed: Yes Mental Status Examination - Cognitive Function Orientation: Person, Place, Situation Memory: Intact Attention: WNL Concentration: Poor - Mood Mood: Depressed, Anxious - Affect Affect: Constricted - Formal Thought Process Formal Thought Process: No Impairment - Suicidal Ideation Suicidal Ideation: No - Homicidal Ideation Homicidal Ideation: No Goal/Treatment Plan - Goal/Treatment Plan Progress Toward Problem(s) and Goals/Treatment Plan: * Group, milieu and supportive tx * Appreciate f/u by Dr. Arceo on 01/11/17~signed off case * c/w Effexor XR 150 mg po daily for depression and anxiety * c/w klonopin 0.5 mg HS for anxiety * c/w Neurontin 100 mg po TID for anxiety * c/w Vistaril 50 mg HS for anxiety * Vitals reviewed and noted below: Selected Entries 01/11/17 01/11/17 08:33 16:24 Temperature 97.6 F Pulse Rate 50 L 56 L Respiratory 20 Rate Blood Pressure 109/65 141/88 RECENT FLOOR LABS NOTED BELOW 01/11/17 08:00 Sodium 135 Potassium 3.9 Chloride 102 Carbon Dioxide 27 Anion Gap 10 BUN 12 Creatinine 0.9 Est GFR (Non-Af Amer) > 60 Random Glucose 88 Calcium 8.8 ER LABS AND STUDIES 01/09/17 17:44: Urine Color Yellow, Urine Appearance Clear, Urine pH 6.5, Ur Specific [place] 1.010, Urine Protein Negative, Urine Glucose (UA) Negative, Urine Ketones Negative, Urine Blood Small H, Urine Nitrate Negative, Urine Bilirubin Negative, Urine Urobilinogen 0.2, Ur Leukocyte Esterase Negative, Urine RBC 1 - 3, Urine WBC 0 - 2, Ur Epithelial Cells 0 - 2, Urine Opiates Screen Negative, Urine Methadone Screen Negative, Ur Barbiturates Screen Negative, Ur Phencyclidine Scrn Negative, Ur Amphetamines Screen Negative, U Benzodiazepines Scrn Negative, U Oth Cocaine Metabols Negative, U Cannabinoids Screen Positive H 01/09/17 16:23: WBC 9.0, RBC 4.80, Hgb 15.4, Hct 43.0, MCV 89.6, MCH 32.1, MCHC 35.8, RDW 14.3, Plt Count 317, MPV 8.8, Gran % 66.6, Lymph % (Auto) 25.5, [place] % (Auto) 6.8 H, Eos % (Auto) 1.0 L, Baso % (Auto) 0.1, Gran # 6.01, Lymph # 2.3 , [place] # 0.6, Eos # 0.1, Baso # 0.01, Sodium 137, Potassium 3.5 L, Chloride 97, Carbon Dioxide 28, Anion Gap 16, BUN 12, Creatinine 1.0, Est GFR ( Amer) > 60, Est GFR (Non-Af Amer) > 60, Random Glucose 116 H, Calcium 9.5, Total Bilirubin 0.4, AST 16, ALT 18, Alkaline Phosphatase 52, Total Protein 7.1, Albumin 4.0, Globulin 3.1, Albumin/Globulin Ratio 1.3, Salicylates < 1 L, Acetaminophen < 10.0 L, Alcohol, Quantitative < 10 01/09/17 16:40 CXR: NAD (Adalberto Ennis P)
--- NOTE | 2017-01-13 08:58 | PCM.PYCHPN ---
Psychiatric Progress Note - Psychiatric Progress Note Patient seen today, length of contact: 25 min Patient Chief Complaint: "better but still depressed" Problems Identified/Issues Discussed: I reviewed recent notes and met with patient at bedside. Patient remains well- oriented to circumstances and cooperative with questioning. Focus is good. He reports feeling a little bit better and more hopeful but he still doesn't feel like the medications are "working as well as they used to". He is depressed but not suicidal or homicidal. Patient denies any new concerns, discomfort or pain. Thought process is overall coherent and responses are relevant to questioning. He denies having any hallucinations and does not appear to be responding to internal stimuli. Delusions were not elicited during our meeting. Nursing notes indicate the patient has generally been a good control. He remains calm, quiet and visible on the unit but not very interactive. Looks comfortable and has been appropriate. There were no behavioral issues over the weekend. Diagnostic Results: MDD (major depressive disorder), recurrent episode, severe MERCEDES (generalized anxiety disorder) Neurocognitive disorder Medication Change: Yes (Effexor increased from 150 mg to 187.5 mg po daily on ) Medical Record Reviewed: Yes (notes, reports, labs, vitals) Mental Status Examination - Cognitive Function Orientation: Person, Place, Situation Memory: Intact Attention: WNL Concentration: Poor - Mood Mood: Depressed, Anxious - Affect Affect: Constricted - Formal Thought Process Formal Thought Process: No Impairment - Suicidal Ideation Suicidal Ideation: No - Homicidal Ideation Homicidal Ideation: No Goal/Treatment Plan - Goal/Treatment Plan Progress Toward Problem(s) and Goals/Treatment Plan: * Group, milieu and supportive tx * Appreciate f/u by Dr. Arceo on 01/11/17~signed off case * Effexor XR increased from 150 mg to 187.5 mg po daily on 01/13/17 * c/w klonopin 0.5 mg HS for anxiety * c/w Neurontin 100 mg po TID for anxiety * c/w Vistaril 50 mg HS for anxiety * Vitals reviewed and noted below: Selected Entries 01/12/17 01/12/17 06:00 16:21 Temperature 97.4 F L Pulse Rate 54 L 57 L Respiratory 16 Rate Blood Pressure 138/88 122/83 RECENT FLOOR LABS NOTED BELOW 01/11/17 08:00 Sodium 135 Potassium 3.9 Chloride 102 Carbon Dioxide 27 Anion Gap 10 BUN 12 Creatinine 0.9 Est GFR (Non-Af Amer) > 60 Random Glucose 88 Calcium 8.8 ER LABS AND STUDIES 01/09/17 17:44: Urine Color Yellow, Urine Appearance Clear, Urine pH 6.5, Ur Specific [place] 1.010, Urine Protein Negative, Urine Glucose (UA) Negative, Urine Ketones Negative, Urine Blood Small H, Urine Nitrate Negative, Urine Bilirubin Negative, Urine Urobilinogen 0.2, Ur Leukocyte Esterase Negative, Urine RBC 1 - 3, Urine WBC 0 - 2, Ur Epithelial Cells 0 - 2, Urine Opiates Screen Negative, Urine Methadone Screen Negative, Ur Barbiturates Screen Negative, Ur Phencyclidine Scrn Negative, Ur Amphetamines Screen Negative, U Benzodiazepines Scrn Negative, U Oth Cocaine Metabols Negative, U Cannabinoids Screen Positive H 01/09/17 16:23: WBC 9.0, RBC 4.80, Hgb 15.4, Hct 43.0, MCV 89.6, MCH 32.1, MCHC 35.8, RDW 14.3, Plt Count 317, MPV 8.8, Gran % 66.6, Lymph % (Auto) 25.5, [place] % (Auto) 6.8 H, Eos % (Auto) 1.0 L, Baso % (Auto) 0.1, Gran # 6.01, Lymph # 2.3 , [place] # 0.6, Eos # 0.1, Baso # 0.01, Sodium 137, Potassium 3.5 L, Chloride 97, Carbon Dioxide 28, Anion Gap 16, BUN 12, Creatinine 1.0, Est GFR ( Amer) > 60, Est GFR (Non-Af Amer) > 60, Random Glucose 116 H, Calcium 9.5, Total Bilirubin 0.4, AST 16, ALT 18, Alkaline Phosphatase 52, Total Protein 7.1, Albumin 4.0, Globulin 3.1, Albumin/Globulin Ratio 1.3, Salicylates < 1 L, Acetaminophen < 10.0 L, Alcohol, Quantitative < 10 01/09/17 16:40 CXR: NAD (Ennis,Nahim P)
[2017-01-13] MEDS: Venlafaxine 37.5 mg ER Cap PO SCH (10:00)
[2017-01-13] MEDS: Alum-Mag Hydrox-Simethicone Susp (30 mL) PO PRN (23:20)
[2017-01-14] MEDS: Alum-Mag Hydrox-Simethicone Susp (30 mL) PO PRN (07:48)
[2017-01-14] MEDS: Venlafaxine 37.5 mg ER Cap PO SCH (08:27)
[2017-01-14] MEDS: Venlafaxine 75 mg ER Cap PO SCH (08:27)
--- NOTE | 2017-01-14 11:02 | PCM.PYCHPN ---
Psychiatric Progress Note - Psychiatric Progress Note Patient seen today, length of contact: 25 min Patient Chief Complaint: "better but still depressed" Problems Identified/Issues Discussed: I reviewed recent notes and met with patient in the dayroom. Patient remains well-oriented to circumstances and cooperative with questioning. Focus is good. He reports feeling a little bit better and has been tolerating recent changes to his medication regimen. Still doesn't feel like the medications are "working as well as they used to". He is depressed but not suicidal or homicidal. Patient denies any new discomfort or pain. Thought process is overall coherent and responses are relevant to questioning. He denies having any hallucinations and does not appear to be responding to internal stimuli. Yesterday he reported that he was feeling paranoid to a staff member, this feeling is a little improved today. Affect is dysphoric. Nursing notes indicate the patient has generally been in good control. He remains calm, quiet and visible on the unit but not very interactive. Looks comfortable and has been appropriate. There were no behavioral issues over the weekend. Diagnostic Results: MDD (major depressive disorder), recurrent episode, severe MERCEDES (generalized anxiety disorder) Neurocognitive disorder Medication Change: Yes ( Abilify 2.5 mg started 01/13 for paranoia, trazodone increased 01/14) Medical Record Reviewed: Yes (notes, reports, labs, vitals) Mental Status Examination - Cognitive Function Orientation: Person, Place, Situation Memory: Intact Attention: WNL Concentration: Poor - Mood Mood: Depressed, Anxious - Affect Affect: Constricted - Formal Thought Process Formal Thought Process: No Impairment - Suicidal Ideation Suicidal Ideation: No - Homicidal Ideation Homicidal Ideation: No Goal/Treatment Plan - Goal/Treatment Plan Need for Continued Stay: Remain at risks for inpatient hospitalization, Severe depression anxiety, Discharge may exacerbated symptoms Progress Toward Problem(s) and Goals/Treatment Plan: * Group, milieu and supportive tx * Appreciate f/u by Dr. Arceo on 01/11/17~signed off case * Effexor XR increased from 150 mg to 187.5 mg po daily on 01/13/17 for depression * klonopin 0.5 mg HS for anxiety * Neurontin 100 mg po TID for anxiety * Vistaril 50 mg HS for anxiety * Abilify 2.5 mg initiated on 01/13/17 for reported paranoia * Trazodone 150 mg HS for depression and off-label for insomnia * Vitals reviewed and noted below: Selected Entries 01/13/17 01/13/17 06:00 16:00 Temperature 98.2 F Pulse Rate 58 L 60 Respiratory 16 Rate Blood Pressure 91/63 L 107/62 RECENT FLOOR LABS NOTED BELOW 01/11/17 08:00 Sodium 135 Potassium 3.9 Chloride 102 Carbon Dioxide 27 Anion Gap 10 BUN 12 Creatinine 0.9 Est GFR (Non-Af Amer) > 60 Random Glucose 88 Calcium 8.8 ER LABS AND STUDIES 01/09/17 17:44: Urine Color Yellow, Urine Appearance Clear, Urine pH 6.5, Ur Specific [place] 1.010, Urine Protein Negative, Urine Glucose (UA) Negative, Urine Ketones Negative, Urine Blood Small H, Urine Nitrate Negative, Urine Bilirubin Negative, Urine Urobilinogen 0.2, Ur Leukocyte Esterase Negative, Urine RBC 1 - 3, Urine WBC 0 - 2, Ur Epithelial Cells 0 - 2, Urine Opiates Screen Negative, Urine Methadone Screen Negative, Ur Barbiturates Screen Negative, Ur Phencyclidine Scrn Negative, Ur Amphetamines Screen Negative, U Benzodiazepines Scrn Negative, U Oth Cocaine Metabols Negative, U Cannabinoids Screen Positive H 01/09/17 16:23: WBC 9.0, RBC 4.80, Hgb 15.4, Hct 43.0, MCV 89.6, MCH 32.1, MCHC 35.8, RDW 14.3, Plt Count 317, MPV 8.8, Gran % 66.6, Lymph % (Auto) 25.5, [place] % (Auto) 6.8 H, Eos % (Auto) 1.0 L, Baso % (Auto) 0.1, Gran # 6.01, Lymph # 2.3 , [place] # 0.6, Eos # 0.1, Baso # 0.01, Sodium 137, Potassium 3.5 L, Chloride 97, Carbon Dioxide 28, Anion Gap 16, BUN 12, Creatinine 1.0, Est GFR ( Amer) > 60, Est GFR (Non-Af Amer) > 60, Random Glucose 116 H, Calcium 9.5, Total Bilirubin 0.4, AST 16, ALT 18, Alkaline Phosphatase 52, Total Protein 7.1, Albumin 4.0, Globulin 3.1, Albumin/Globulin Ratio 1.3, Salicylates < 1 L, Acetaminophen < 10.0 L, Alcohol, Quantitative < 10 01/09/17 16:40 CXR: NAD (Adalberto Ennis)
[2017-01-15] MEDS: Venlafaxine 75 mg ER Cap PO SCH (08:38)
[2017-01-15] MEDS: Venlafaxine 37.5 mg ER Cap PO SCH (08:38)
--- NOTE | 2017-01-15 10:19 | PCM.PYCHPN ---
Psychiatric Progress Note - Psychiatric Progress Note Patient seen today, length of contact: 25 min Patient Chief Complaint: "better but still depressed" Problems Identified/Issues Discussed: I reviewed recent notes and met with patient at bedside. Patient remains well- oriented to circumstances and cooperative with questioning. Focus is good. He reports feeling a little bit better and has been tolerating recent changes to his medication regimen. He remains depressed but not suicidal or homicidal. Tells me that he "needs time for medications to work". Patient denies any new discomfort or pain. Thought process is overall coherent and responses are relevant to questioning. He denies having any hallucinations and does not appear to be responding to internal stimuli. Paranoia is also improved s/p initiation of ability.. Nursing notes indicate the patient has generally been in good control. He remains calm, quiet and visible on the unit but not very interactive. Looks comfortable and has been appropriate. There were no behavioral issues overnight. Diagnostic Results: MDD (major depressive disorder), recurrent episode, severe MERCEDES (generalized anxiety disorder) Neurocognitive disorder Medication Change: Yes ( Abilify 2.5 mg started 01/13 for paranoia, trazodone increased 01/14) Medical Record Reviewed: Yes (notes, reports, labs, vitals) Mental Status Examination - Cognitive Function Orientation: Person, Place, Situation Memory: Intact Attention: WNL Concentration: Poor - Mood Mood: Depressed, Anxious - Affect Affect: Constricted - Formal Thought Process Formal Thought Process: No Impairment - Suicidal Ideation Suicidal Ideation: No - Homicidal Ideation Homicidal Ideation: No Goal/Treatment Plan - Goal/Treatment Plan Need for Continued Stay: Remain at risks for inpatient hospitalization, Severe depression anxiety, Discharge may exacerbated symptoms Progress Toward Problem(s) and Goals/Treatment Plan: * Group, milieu and supportive tx * Appreciate f/u by Dr. Arceo on 01/11/17~signed off case * Effexor XR increased from 150 mg to 187.5 mg po daily on 01/13/17 for depression * klonopin 0.5 mg HS for anxiety * Neurontin 100 mg po TID for anxiety * Vistaril 50 mg HS for anxiety * Abilify 2.5 mg initiated on 01/13/17 for reported paranoia * Trazodone 150 mg HS for depression and off-label for insomnia * Vitals reviewed and noted below: Selected Entries 0401/14/17 01/14/17 06:50 15:29 16:04 Temperature 97.7 F 97.0 F L Pulse Rate 54 L 56 L Respiratory 16 Rate Blood Pressure 151/91 H 144/97 H O2 Sat by Pulse 94 L Oximetry 01/14/17 16:29 Temperature 97.2 F L Pulse Rate Respiratory Rate Blood Pressure O2 Sat by Pulse Oximetry RECENT FLOOR LABS NOTED BELOW 01/11/17 08:00 Sodium 135 Potassium 3.9 Chloride 102 Carbon Dioxide 27 Anion Gap 10 BUN 12 Creatinine 0.9 Est GFR (Non-Af Amer) > 60 Random Glucose 88 Calcium 8.8 ER LABS AND STUDIES 01/09/17 17:44: Urine Color Yellow, Urine Appearance Clear, Urine pH 6.5, Ur Specific [place] 1.010, Urine Protein Negative, Urine Glucose (UA) Negative, Urine Ketones Negative, Urine Blood Small H, Urine Nitrate Negative, Urine Bilirubin Negative, Urine Urobilinogen 0.2, Ur Leukocyte Esterase Negative, Urine RBC 1 - 3, Urine WBC 0 - 2, Ur Epithelial Cells 0 - 2, Urine Opiates Screen Negative, Urine Methadone Screen Negative, Ur Barbiturates Screen Negative, Ur Phencyclidine Scrn Negative, Ur Amphetamines Screen Negative, U Benzodiazepines Scrn Negative, U Oth Cocaine Metabols Negative, U Cannabinoids Screen Positive H 01/09/17 16:23: WBC 9.0, RBC 4.80, Hgb 15.4, Hct 43.0, MCV 89.6, MCH 32.1, MCHC 35.8, RDW 14.3, Plt Count 317, MPV 8.8, Gran % 66.6, Lymph % (Auto) 25.5, [place] % (Auto) 6.8 H, Eos % (Auto) 1.0 L, Baso % (Auto) 0.1, Gran # 6.01, Lymph # 2.3 , [place] # 0.6, Eos # 0.1, Baso # 0.01, Sodium 137, Potassium 3.5 L, Chloride 97, Carbon Dioxide 28, Anion Gap 16, BUN 12, Creatinine 1.0, Est GFR ( Amer) > 60, Est GFR (Non-Af Amer) > 60, Random Glucose 116 H, Calcium 9.5, Total Bilirubin 0.4, AST 16, ALT 18, Alkaline Phosphatase 52, Total Protein 7.1, Albumin 4.0, Globulin 3.1, Albumin/Globulin Ratio 1.3, Salicylates < 1 L, Acetaminophen < 10.0 L, Alcohol, Quantitative < 10 01/09/17 16:40 CXR: NAD (Adalberto Ennis)
[2017-01-16] MEDS: Venlafaxine 37.5 mg ER Cap PO SCH ×2 (09:08→16:42)
[2017-01-16] MEDS: Venlafaxine 75 mg ER Cap PO SCH (09:08)
--- NOTE | 2017-01-16 10:36 | PCM.PYCHPN ---
Psychiatric Progress Note - Psychiatric Progress Note Patient seen today, length of contact: 25 min Patient Chief Complaint: "better but still depressed" Problems Identified/Issues Discussed: I reviewed recent notes and met with patient at bedside. Patient remains well- oriented to circumstances and cooperative with questioning. Focus is good. He reports feeling a little bit better and continues to tolerate recent changes to his medication regimen. He remains depressed but not suicidal or homicidal. Mood is "up and down on the unit". Tells me that he "still needs time for medications to work". Patient denies any new discomfort or pain. Thought process is overall coherent and responses are relevant to questioning. He denies having any hallucinations and does not appear to be responding to internal stimuli. Paranoia is also still improved s/p initiation of ability. Nursing notes indicate the patient has generally been in good control. He remains calm, quiet and visible on the unit. Looks comfortable and has been appropriate. There were no behavioral issues overnight. Diagnostic Results: MDD (major depressive disorder), recurrent episode, severe MERCEDES (generalized anxiety disorder) Neurocognitive disorder Medication Change: Yes (effexor increased on 01/16/17) Medical Record Reviewed: Yes (notes, reports, labs, vitals) Mental Status Examination - Cognitive Function Orientation: Person, Place, Situation Memory: Intact Attention: WNL Concentration: Poor - Mood Mood: Depressed, Anxious - Affect Affect: Constricted - Formal Thought Process Formal Thought Process: No Impairment - Suicidal Ideation Suicidal Ideation: No - Homicidal Ideation Homicidal Ideation: No Goal/Treatment Plan - Goal/Treatment Plan Need for Continued Stay: Remain at risks for inpatient hospitalization, Severe depression anxiety, Discharge may exacerbated symptoms Progress Toward Problem(s) and Goals/Treatment Plan: * Group, milieu and supportive tx * Appreciate f/u by Dr. Arceo on 01/11/17~signed off case * Effexor XR increased from 150 mg to 187.5 mg po daily on 01/13/17 for depression and then again to 187.5 mg AM and 37.5 mg PM on 01/16/17 for depression * klonopin 0.5 mg HS for anxiety * Neurontin 100 mg po TID for anxiety * Vistaril 50 mg HS for anxiety * Abilify 2.5 mg initiated on 01/13/17 for reported paranoia * Trazodone 150 mg HS for depression and off-label for insomnia * Vitals reviewed and noted below: Selected Entries 01/15/17 01/15/17 06:39 16:44 Temperature 97.3 F L Pulse Rate 54 L 56 L Respiratory 18 Rate Blood Pressure 106/61 132/84 RECENT FLOOR LABS NOTED BELOW 01/11/17 08:00 Sodium 135 Potassium 3.9 Chloride 102 Carbon Dioxide 27 Anion Gap 10 BUN 12 Creatinine 0.9 Est GFR (Non-Af Amer) > 60 Random Glucose 88 Calcium 8.8 ER LABS AND STUDIES 01/09/17 17:44: Urine Color Yellow, Urine Appearance Clear, Urine pH 6.5, Ur Specific [place] 1.010, Urine Protein Negative, Urine Glucose (UA) Negative, Urine Ketones Negative, Urine Blood Small H, Urine Nitrate Negative, Urine Bilirubin Negative, Urine Urobilinogen 0.2, Ur Leukocyte Esterase Negative, Urine RBC 1 - 3, Urine WBC 0 - 2, Ur Epithelial Cells 0 - 2, Urine Opiates Screen Negative, Urine Methadone Screen Negative, Ur Barbiturates Screen Negative, Ur Phencyclidine Scrn Negative, Ur Amphetamines Screen Negative, U Benzodiazepines Scrn Negative, U Oth Cocaine Metabols Negative, U Cannabinoids Screen Positive H 01/09/17 16:23: WBC 9.0, RBC 4.80, Hgb 15.4, Hct 43.0, MCV 89.6, MCH 32.1, MCHC 35.8, RDW 14.3, Plt Count 317, MPV 8.8, Gran % 66.6, Lymph % (Auto) 25.5, [place] % (Auto) 6.8 H, Eos % (Auto) 1.0 L, Baso % (Auto) 0.1, Gran # 6.01, Lymph # 2.3 , [place] # 0.6, Eos # 0.1, Baso # 0.01, Sodium 137, Potassium 3.5 L, Chloride 97, Carbon Dioxide 28, Anion Gap 16, BUN 12, Creatinine 1.0, Est GFR ( Amer) > 60, Est GFR (Non-Af Amer) > 60, Random Glucose 116 H, Calcium 9.5, Total Bilirubin 0.4, AST 16, ALT 18, Alkaline Phosphatase 52, Total Protein 7.1, Albumin 4.0, Globulin 3.1, Albumin/Globulin Ratio 1.3, Salicylates < 1 L, Acetaminophen < 10.0 L, Alcohol, Quantitative < 10 01/09/17 16:40 CXR: NAD (Adalberto Ennis)
[2017-01-17] MEDS: Venlafaxine 75 mg ER Cap PO SCH (09:27)
[2017-01-17] MEDS: Venlafaxine 37.5 mg ER Cap PO SCH ×2 (09:28→15:24)
--- NOTE | 2017-01-17 10:49 | PCM.PYCHPN ---
Psychiatric Progress Note - Psychiatric Progress Note Patient seen today, length of contact: 25 min Patient Chief Complaint: "better but still depressed" Problems Identified/Issues Discussed: Patient is 61yo SWM with h/o depression and anxiety, h/o multiple admissions in the past (most recent was 05/2016 at [facility]), pt lives independently, has poor social support, currently on unemployment for trauma at work, multiple medical problems such as partial colon resection for his diverticulosis, h/o rheumatoid arthritis, was admitted for evaluation and stabilization of depressive symptoms , worsening of anxiety, inability to function and passive wishes ~~~~~ I reviewed recent notes and met with patient at bedside. Patient remains well- oriented to circumstances and cooperative with questioning. Focus is good. He reports feeling a little bit better and continues to tolerate recent changes to his medication regimen. He remains depressed but not suicidal or homicidal. Mood is "up and down on the unit". Tells me that he "still needs time for medications to work". Requests that klonopin be switched to 3 pm to help with reported increase in anxiety at that time. Patient denies any new discomfort or pain. Thought process is overall coherent and responses are relevant to questioning. He denies having any hallucinations and does not appear to be responding to internal stimuli. Paranoia is also still improved s/p initiation of ability. Nursing notes indicate the patient has generally been in good control. He remains calm, quiet and visible on the unit. Looks comfortable and has been appropriate but generally still isolative with constricted affect. There were no behavioral issues overnight. Diagnostic Results: MDD (major depressive disorder), recurrent episode, severe MERCEDES (generalized anxiety disorder) Neurocognitive disorder Medication Change: Yes (effexor increased on 01/16/17) Medical Record Reviewed: Yes (notes, reports, labs, vitals) Mental Status Examination - Cognitive Function Orientation: Person, Place, Situation Memory: Intact Attention: WNL Concentration: Poor - Mood Mood: Depressed, Anxious - Affect Affect: Constricted - Formal Thought Process Formal Thought Process: No Impairment - Suicidal Ideation Suicidal Ideation: No - Homicidal Ideation Homicidal Ideation: No Goal/Treatment Plan - Goal/Treatment Plan Need for Continued Stay: Remain at risks for inpatient hospitalization, Severe depression anxiety, Discharge may exacerbated symptoms Progress Toward Problem(s) and Goals/Treatment Plan: * Group, milieu and supportive tx * Appreciate f/u by Dr. Arceo on 01/11/17~signed off case * Effexor XR increased from 150 mg to 187.5 mg po daily on 01/13/17 for depression and then increased again to 187.5 mg AM and 37.5 mg PM on 01/16/17 for depression * klonopin 0.5 mg will be given at 1500 instead of HS for anxiety * Neurontin 100 mg po TID for anxiety * Vistaril 50 mg HS for anxiety * Abilify 2.5 mg initiated on 01/13/17 for reported paranoia * Trazodone 150 mg HS for depression and off-label for insomnia * Vitals reviewed and noted below: Selected Entries 01/16/17 01/16/17 06:00 16:22 Temperature 97.8 F Pulse Rate 58 L 56 L Respiratory 12 Rate Blood Pressure 118/75 112/67 RECENT FLOOR LABS NOTED BELOW 01/11/17 08:00 Sodium 135 Potassium 3.9 Chloride 102 Carbon Dioxide 27 Anion Gap 10 BUN 12 Creatinine 0.9 Est GFR (Non-Af Amer) > 60 Random Glucose 88 Calcium 8.8 ER LABS AND STUDIES 01/09/17 17:44: Urine Color Yellow, Urine Appearance Clear, Urine pH 6.5, Ur Specific [place] 1.010, Urine Protein Negative, Urine Glucose (UA) Negative, Urine Ketones Negative, Urine Blood Small H, Urine Nitrate Negative, Urine Bilirubin Negative, Urine Urobilinogen 0.2, Ur Leukocyte Esterase Negative, Urine RBC 1 - 3, Urine WBC 0 - 2, Ur Epithelial Cells 0 - 2, Urine Opiates Screen Negative, Urine Methadone Screen Negative, Ur Barbiturates Screen Negative, Ur Phencyclidine Scrn Negative, Ur Amphetamines Screen Negative, U Benzodiazepines Scrn Negative, U Oth Cocaine Metabols Negative, U Cannabinoids Screen Positive H 01/09/17 16:23: WBC 9.0, RBC 4.80, Hgb 15.4, Hct 43.0, MCV 89.6, MCH 32.1, MCHC 35.8, RDW 14.3, Plt Count 317, MPV 8.8, Gran % 66.6, Lymph % (Auto) 25.5, [place] % (Auto) 6.8 H, Eos % (Auto) 1.0 L, Baso % (Auto) 0.1, Gran # 6.01, Lymph # 2.3 , [place] # 0.6, Eos # 0.1, Baso # 0.01, Sodium 137, Potassium 3.5 L, Chloride 97, Carbon Dioxide 28, Anion Gap 16, BUN 12, Creatinine 1.0, Est GFR ( Amer) > 60, Est GFR (Non-Af Amer) > 60, Random Glucose 116 H, Calcium 9.5, Total Bilirubin 0.4, AST 16, ALT 18, Alkaline Phosphatase 52, Total Protein 7.1, Albumin 4.0, Globulin 3.1, Albumin/Globulin Ratio 1.3, Salicylates < 1 L, Acetaminophen < 10.0 L, Alcohol, Quantitative < 10 01/09/17 16:40 CXR: NAD (Adalberto Ennis P)
[2017-01-18] MEDS: Venlafaxine 75 mg ER Cap PO SCH (08:50)
[2017-01-18] MEDS: Venlafaxine 37.5 mg ER Cap PO SCH (08:51)
[2017-01-18] MEDS: Alum-Mag Hydrox-Simethicone Susp (30 mL) PO PRN (15:53)
--- NOTE | 2017-01-18 18:50 | PCM.PYCHPN ---
Psychiatric Progress Note - Psychiatric Progress Note Patient seen today, length of contact: 30 minutes Patient Chief Complaint: "dictations stopped working" Problems Identified/Issues Discussed: Suicide/ homicide prevention, past psychiatric h/o, current psychiatric symptoms , medical problems, risk/benefits and alternatives of medications, medications compliance, coping strategies, substance abuse h/o, relapse prevention, importance of follow up with psychiatrist and therapist, discharge plan. Medical Problems: HTN, diverticulitis, abdominal hernia, colon resection, hernia repair Diagnostic Results: 01/09/17 16:23 01/11/17 08:00 Lab Results 01/11/17 08:00: Sodium 135, Potassium 3.9, Chloride 102, Carbon Dioxide 27, Anion Gap 10, BUN 12, Creatinine 0.9, Est GFR ( Amer) > 60, Est GFR (Non- Af Amer) > 60, Random Glucose 88, Calcium 8.8 01/11/17 06:50: Fasting Glucose 91, Triglycerides 213 H, Cholesterol 156, LDL Cholesterol Direct 91, HDL Cholesterol 24 L, Free T4 1.00, TSH 3rd Generation 2.05, RPR Nonreactive 01/09/17 17:44: Urine Color Yellow, Urine Appearance Clear, Urine pH 6.5, Ur Specific [place] 1.010, Urine Protein Negative, Urine Glucose (UA) Negative, Urine Ketones Negative, Urine Blood Small H, Urine Nitrate Negative, Urine Bilirubin Negative, Urine Urobilinogen 0.2, Ur Leukocyte Esterase Negative, Urine RBC 1 - 3, Urine WBC 0 - 2, Ur Epithelial Cells 0 - 2, Urine Opiates Screen Negative, Urine Methadone Screen Negative, Ur Barbiturates Screen Negative, Ur Phencyclidine Scrn Negative, Ur Amphetamines Screen Negative, U Benzodiazepines Scrn Negative, U Oth Cocaine Metabols Negative, U Cannabinoids Screen Positive H 01/09/17 16:23: WBC 9.0, RBC 4.80, Hgb 15.4, Hct 43.0, MCV 89.6, MCH 32.1, MCHC 35.8, RDW 14.3, Plt Count 317, MPV 8.8, Gran % 66.6, Lymph % (Auto) 25.5, [place] % (Auto) 6.8 H, Eos % (Auto) 1.0 L, Baso % (Auto) 0.1, Gran # 6.01, Lymph # 2.3 , [place] # 0.6, Eos # 0.1, Baso # 0.01, Sodium 137, Potassium 3.5 L, Chloride 97, Carbon Dioxide 28, Anion Gap 16, BUN 12, Creatinine 1.0, Est GFR ( Amer) > 60, Est GFR (Non-Af Amer) > 60, Random Glucose 116 H, Calcium 9.5, Total Bilirubin 0.4, AST 16, ALT 18, Alkaline Phosphatase 52, Total Protein 7.1, Albumin 4.0, Globulin 3.1, Albumin/Globulin Ratio 1.3, Salicylates < 1 L, Acetaminophen < 10.0 L, Alcohol, Quantitative < 10 Vital Signs Temp Pulse Resp BP Pulse Ox 01/18/17 16:37 73 122/73 01/18/17 06:32 98.4 F 66 18 112/71 01/17/17 16:46 53 L 138/87 01/17/17 06:54 97.9 F 56 L 20 102/59 L 01/16/17 16:22 56 L 112/67 01/16/17 06:00 97.8 F 58 L 12 118/75 01/15/17 16:44 56 L 132/84 01/15/17 06:39 97.3 F L 54 L 18 106/61 01/14/17 16:29 97.2 F L 01/14/17 16:04 56 L 144/97 H 01/14/17 15:29 97.0 F L 01/14/17 06:50 97.7 F 54 L 16 151/91 H 94 L 01/13/17 16:00 60 107/62 01/13/17 06:00 98.2 F 58 L 16 91/63 L 01/12/17 16:21 57 L 122/83 01/12/17 06:00 97.4 F L 54 L 16 138/88 01/11/17 16:24 56 L 141/88 01/11/17 08:33 97.6 F 50 L 20 109/65 01/10/17 16:15 57 L 118/74 01/10/17 10:13 60 12 126/90 94 L 01/10/17 03:40 47 L 16 134/69 89 L 01/09/17 20:37 98.0 F 59 L 18 127/72 97 01/09/17 18:22 51 L 16 119/71 97 04/12/17 18:19 74 18 111/75 100 01/09/17 18:16 51 L 14 131/52 L 97 01/09/17 17:29 68 18 119/75 95 01/09/17 15:55 98.5 F 76 24 146/73 100 01/09/17 15:40 98.8 F 80 16 129/81 99 DSM 5 Symptoms Update: Patient is 61yo SWM with h/o depression and anxiety, h/o multiple admissions in the past (most recent was 05/2016 at [facility] [place]), 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 Patient was seen today at the treatment team meeting, patient presented to have acceptable personal hygiene, good ADLs. Patient presented to be poor and unreliable historian most likely due to his cognitive limitations, low IQ. Patient statements wwere like"medications stopped working,, I don't know how, urine the doctor, figure out yourself", when patient was asked about the symptoms patient said "I don't know medication just stopped working". Patient had difficulty to express himself, at the same time by the end of the conversation patient said that he had passive wish to be before coming to the hospital. 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 At the same time patient reported that his anxiety is a little better. pt reported to feel paranoid, was in agreement to increase abilify. Patient tolerates medications well, no side effects observed or reported, medication compliance is good, no behavioral issues. Aims 0, no EPS Diagnostic Results: MDD (major depressive disorder), recurrent episode, severe MERCEDES (generalized anxiety disorder) Neurocognitive disorder Medication Change: Yes (Effexor was given as extended-release, Abilify was increased) Medical Record Reviewed: Yes (notes, reports, labs, vitals) Consults ordered or reviewed: medical consult appreciated the medications as well as Flexeril was resumed Mental Status Examination - Cognitive Function Orientation: Person, Place, Situation Memory: Intact Attention: WNL Concentration: Poor - Mood Mood: Depressed, Anxious - Affect Affect: Constricted - Formal Thought Process Formal Thought Process: No Impairment - Suicidal Ideation Suicidal Ideation: No - Homicidal Ideation Homicidal Ideation: No Goal/Treatment Plan - Goal/Treatment Plan Need for Continued Stay: Remain at risks for inpatient hospitalization, Severe depression anxiety, Discharge may exacerbated symptoms, Severe functional impairment Progress Toward Problem(s) and Goals/Treatment Plan: milieu, structure, supportive therapy Abilify will be increased to 5 mg at the nighttime for mood stabilization as well as for paranoid ideations Effexor extended release 225 mg daily for depression and anxiety Klonopin 0.5 mg daily for anxiety Trazodone 150 mg at the nighttime for insomnia as well as for depression vistaril 50 mg at the nighttime for insomnia and anxiety 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
[2017-01-19] MEDS: Alum-Mag Hydrox-Simethicone Susp (30 mL) PO PRN (01:49)
[2017-01-19] MEDS: Venlafaxine 75 mg ER Cap PO SCH (08:47)
--- NOTE | 2017-01-19 09:27 | PCM.PYCHPN ---
Psychiatric Progress Note - Psychiatric Progress Note Patient seen today, length of contact: 25 minutes Patient Chief Complaint: "better but still depressed" Problems Identified/Issues Discussed: I reviewed recent notes and met with patient at bedside. Patient remains well- oriented to circumstances and cooperative with questioning. Focus is good. He reports feeling a little bit better and continues to tolerate recent changes to his medication regimen. He remains depressed but not suicidal or homicidal. Mood is "up and down on the unit". Affect is flat. Patient denies any new discomfort or pain. Thought process is overall coherent and responses are relevant to questioning. He denies having any hallucinations and does not appear to be responding to internal stimuli. Paranoia persists but is improving s/p increase of ability. Nursing notes indicate the patient has generally been in good control. He remains calm, quiet and visible on the unit. Looks comfortable and has been appropriate but generally still isolative with constricted affect. There were no behavioral issues overnight. Diagnostic Results: MDD (major depressive disorder), recurrent episode, severe MERCEDES (generalized anxiety disorder) Neurocognitive disorder Medication Change: No ( ) Medical Record Reviewed: Yes (notes, reports, labs, vitals) Mental Status Examination - Cognitive Function Orientation: Person, Place, Situation Memory: Intact Attention: WNL Concentration: Poor - Mood Mood: Depressed, Anxious - Affect Affect: Constricted - Formal Thought Process Formal Thought Process: No Impairment - Suicidal Ideation Suicidal Ideation: No - Homicidal Ideation Homicidal Ideation: No Goal/Treatment Plan - Goal/Treatment Plan Need for Continued Stay: Remain at risks for inpatient hospitalization, Severe depression anxiety, Discharge may exacerbated symptoms, Severe functional impairment Progress Toward Problem(s) and Goals/Treatment Plan: * Group, milieu and supportive tx * No new labs overnight * Vitals reviewed and noted below: Selected Entries 01/18/17 01/18/17 06:32 16:37 Temperature 98.4 F Pulse Rate 66 73 Respiratory 18 Rate Blood Pressure 112/71 122/73 Estimated Date of D/C: 01/24/17 (will monitor closely)
[2017-01-19] MEDS: Naproxen 550 mg Tab PO PRN (12:38)
[2017-01-20] MEDS: Venlafaxine 75 mg ER Cap PO SCH (08:21)
--- NOTE | 2017-01-20 08:47 | PCM.PYCHPN ---
Psychiatric Progress Note - Psychiatric Progress Note Patient seen today, length of contact: 25 minutes Patient Chief Complaint: "better but still depressed" Problems Identified/Issues Discussed: I reviewed recent notes and met with patient at bedside. Patient remains well- oriented to circumstances and cooperative with questioning. Focus is good. He reports feeling better and continues to tolerate recent changes to his medication regimen. He remains depressed but not suicidal or homicidal. Affect is flat. Patient denies any new discomfort or pain. Thought process is overall coherent and responses are relevant to questioning. He denies having any hallucinations and does not appear to be responding to internal stimuli. Paranoia persists but this symptom is improving s/p increase of abilify. Nursing notes indicate the patient has generally been in good control. He remains calm, quiet and visible on the unit. Looks comfortable and has been appropriate but generally still isolative with constricted affect. There were no behavioral issues over the weekend. Diagnostic Results: MDD (major depressive disorder), recurrent episode, severe MERCEDES (generalized anxiety disorder) Neurocognitive disorder Medication Change: No ( ) Medical Record Reviewed: Yes (notes, reports, labs, vitals) Mental Status Examination - Cognitive Function Orientation: Person, Place, Situation Memory: Intact Attention: WNL Concentration: Poor - Mood Mood: Depressed, Anxious - Affect Affect: Constricted - Formal Thought Process Formal Thought Process: No Impairment - Suicidal Ideation Suicidal Ideation: No - Homicidal Ideation Homicidal Ideation: No Goal/Treatment Plan - Goal/Treatment Plan Need for Continued Stay: Remain at risks for inpatient hospitalization, Severe depression anxiety, Discharge may exacerbated symptoms, Severe functional impairment Progress Toward Problem(s) and Goals/Treatment Plan: * Group, milieu and supportive tx * No new labs overnight * Vitals reviewed and noted below: Selected Entries 01/19/17 01/19/17 01/19/17 05:56 06:00 17:55 Temperature 98 F Pulse Rate 73 61 62 Respiratory 18 Rate Blood Pressure 122/73 125/79 124/76 Estimated Date of D/C: 01/24/17 (will monitor closely)
[2017-01-20] MEDS: Naproxen 550 mg Tab PO PRN (10:44)
[2017-01-21] MEDS: Venlafaxine 75 mg ER Cap PO SCH (08:42)
--- NOTE | 2017-01-21 16:03 | PCM.PYCHPN ---
Psychiatric Progress Note - Psychiatric Progress Note Patient seen today, length of contact: 30 minutes Patient Chief Complaint: "I don't know, medication stopped working, I feel paranoid" Problems Identified/Issues Discussed: Suicide/ homicide prevention, past psychiatric h/o, current psychiatric symptoms , medical problems, risk/benefits and alternatives of medications, medications compliance, coping strategies, substance abuse h/o, relapse prevention, importance of follow up with psychiatrist and therapist, discharge plan. Medical Problems: HTN, diverticulitis, abdominal hernia, colon resection, hernia repair Diagnostic Results: 01/09/17 16:23 01/11/17 08:00 Lab Results 01/11/17 08:00: Sodium 135, Potassium 3.9, Chloride 102, Carbon Dioxide 27, Anion Gap 10, BUN 12, Creatinine 0.9, Est GFR ( Amer) > 60, Est GFR (Non- Af Amer) > 60, Random Glucose 88, Calcium 8.8 01/11/17 06:50: Fasting Glucose 91, Triglycerides 213 H, Cholesterol 156, LDL Cholesterol Direct 91, HDL Cholesterol 24 L, Free T4 1.00, TSH 3rd Generation 2.05, RPR Nonreactive 01/09/17 17:44: Urine Color Yellow, Urine Appearance Clear, Urine pH 6.5, Ur Specific [place] 1.010, Urine Protein Negative, Urine Glucose (UA) Negative, Urine Ketones Negative, Urine Blood Small H, Urine Nitrate Negative, Urine Bilirubin Negative, Urine Urobilinogen 0.2, Ur Leukocyte Esterase Negative, Urine RBC 1 - 3, Urine WBC 0 - 2, Ur Epithelial Cells 0 - 2, Urine Opiates Screen Negative, Urine Methadone Screen Negative, Ur Barbiturates Screen Negative, Ur Phencyclidine Scrn Negative, Ur Amphetamines Screen Negative, U Benzodiazepines Scrn Negative, U Oth Cocaine Metabols Negative, U Cannabinoids Screen Positive H 01/09/17 16:23: WBC 9.0, RBC 4.80, Hgb 15.4, Hct 43.0, MCV 89.6, MCH 32.1, MCHC 35.8, RDW 14.3, Plt Count 317, MPV 8.8, Gran % 66.6, Lymph % (Auto) 25.5, [place] % (Auto) 6.8 H, Eos % (Auto) 1.0 L, Baso % (Auto) 0.1, Gran # 6.01, Lymph # 2.3 , [place] # 0.6, Eos # 0.1, Baso # 0.01, Sodium 137, Potassium 3.5 L, Chloride 97, Carbon Dioxide 28, Anion Gap 16, BUN 12, Creatinine 1.0, Est GFR ( Amer) > 60, Est GFR (Non-Af Amer) > 60, Random Glucose 116 H, Calcium 9.5, Total Bilirubin 0.4, AST 16, ALT 18, Alkaline Phosphatase 52, Total Protein 7.1, Albumin 4.0, Globulin 3.1, Albumin/Globulin Ratio 1.3, Salicylates < 1 L, Acetaminophen < 10.0 L, Alcohol, Quantitative < 10 Vital Signs Temp Pulse Resp BP Pulse Ox 01/18/17 16:37 73 122/73 01/18/17 06:32 98.4 F 66 18 112/71 01/17/17 16:46 53 L 138/87 01/17/17 06:54 97.9 F 56 L 20 102/59 L 01/16/17 16:22 56 L 112/67 01/16/17 06:00 97.8 F 58 L 12 118/75 01/15/17 16:44 56 L 132/84 01/15/17 06:39 97.3 F L 54 L 18 106/61 01/14/17 16:29 97.2 F L 01/14/17 16:04 56 L 144/97 H 01/14/17 15:29 97.0 F L 01/14/17 06:50 97.7 F 54 L 16 151/91 H 94 L 01/13/17 16:00 60 107/62 01/13/17 06:00 98.2 F 58 L 16 91/63 L 01/12/17 16:21 57 L 122/83 01/12/17 06:00 97.4 F L 54 L 16 138/88 01/11/17 16:24 56 L 141/88 01/11/17 08:33 97.6 F 50 L 20 109/65 01/10/17 16:15 57 L 118/74 01/10/17 10:13 60 12 126/90 94 L 01/10/17 03:40 47 L 16 134/69 89 L 01/09/17 20:37 98.0 F 59 L 18 127/72 97 01/09/17 18:22 51 L 16 119/71 97 01/09/17 18:19 74 18 111/75 100 01/09/17 18:16 51 L 14 131/52 L 97 01/09/17 17:29 68 18 119/75 95 01/09/17 15:55 98.5 F 76 24 146/73 100 01/09/17 15:40 98.8 F 80 16 129/81 99 Temp Pulse Resp BP Pulse Ox 98.0 F 55 L 20 120/79 94 L 01/21/17 07:27 01/21/17 07:27 01/21/17 07:27 01/21/17 07:27 01/14/17 06:50 DSM 5 Symptoms Update: Patient is 61yo SWM with h/o depression and anxiety, h/o multiple admissions in the past (most recent was 05/2016 at [facility] [place] 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 Patient presented to be poor and unreliable historian most likely due to his cognitive limitations, low IQ. Patient statements were like "medications stopped working,, I don't know how, you are the doctor, figure out yourself". Pt c/o being "paranoid", had difficulties to explain what does it mean and the way pt feels. when this write asked if he feels people are following him or police is after him pt said "what do you mean by that?". pt was seen by SW at am and said he was doing better, will monitor closely. pt was in agreement to start seroquel, d/c abilify. Patient tolerates medications well, no side effects observed or reported, medication compliance is good, no behavioral issues. Aims 0, no EPS Diagnostic Results: MDD (major depressive disorder), recurrent episode, severe MERCEDES (generalized anxiety disorder) Neurocognitive disorder Medication Change: Yes (abilify d/c, seroquel started) Medical Record Reviewed: Yes (notes, reports, labs, vitals) Consults ordered or reviewed: medical consult appreciated the medications as well as Flexeril was resumed Mental Status Examination - Cognitive Function Orientation: Person, Place, Situation Memory: Intact Attention: WNL Concentration: Poor - Mood Mood: Depressed, Anxious - Affect Affect: Constricted - Formal Thought Process Formal Thought Process: No Impairment - Suicidal Ideation Suicidal Ideation: No - Homicidal Ideation Homicidal Ideation: No Goal/Treatment Plan - Goal/Treatment Plan Need for Continued Stay: Remain at risks for inpatient hospitalization, Severe depression anxiety, Discharge may exacerbated symptoms, Severe functional impairment Progress Toward Problem(s) and Goals/Treatment Plan: milieu, structure, supportive therapy Abilify d/c seroquel 50mg po hs for mood stabilization and paranoia Effexor extended release 225 mg daily for depression and anxiety Klonopin 0.5 mg daily for anxiety Trazodone 150 mg at the nighttime for insomnia as well as for depression vistaril 50 mg at the nighttime for insomnia and anxiety 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
[2017-01-22] MEDS: Venlafaxine 75 mg ER Cap PO SCH (08:34)
--- NOTE | 2017-01-22 17:19 | PCM.PYCHPN ---
Psychiatric Progress Note - Psychiatric Progress Note Patient seen today, length of contact: 30 minutes Patient Chief Complaint: "I am fine" Problems Identified/Issues Discussed: Suicide/ homicide prevention, past psychiatric h/o, current psychiatric symptoms , medical problems, risk/benefits and alternatives of medications, medications compliance, coping strategies, substance abuse h/o, relapse prevention, importance of follow up with psychiatrist and therapist, discharge plan. Medical Problems: HTN, diverticulitis, abdominal hernia, colon resection, hernia repair Diagnostic Results: 01/09/17 16:23 01/11/17 08:00 Lab Results 01/11/17 08:00: Sodium 135, Potassium 3.9, Chloride 102, Carbon Dioxide 27, Anion Gap 10, BUN 12, Creatinine 0.9, Est GFR ( Amer) > 60, Est GFR (Non- Af Amer) > 60, Random Glucose 88, Calcium 8.8 01/11/17 06:50: Fasting Glucose 91, Triglycerides 213 H, Cholesterol 156, LDL Cholesterol Direct 91, HDL Cholesterol 24 L, Free T4 1.00, TSH 3rd Generation 2.05, RPR Nonreactive 01/09/17 17:44: Urine Color Yellow, Urine Appearance Clear, Urine pH 6.5, Ur Specific [place] 1.010, Urine Protein Negative, Urine Glucose (UA) Negative, Urine Ketones Negative, Urine Blood Small H, Urine Nitrate Negative, Urine Bilirubin Negative, Urine Urobilinogen 0.2, Ur Leukocyte Esterase Negative, Urine RBC 1 - 3, Urine WBC 0 - 2, Ur Epithelial Cells 0 - 2, Urine Opiates Screen Negative, Urine Methadone Screen Negative, Ur Barbiturates Screen Negative, Ur Phencyclidine Scrn Negative, Ur Amphetamines Screen Negative, U Benzodiazepines Scrn Negative, U Oth Cocaine Metabols Negative, U Cannabinoids Screen Positive H 01/09/17 16:23: WBC 9.0, RBC 4.80, Hgb 15.4, Hct 43.0, MCV 89.6, MCH 32.1, MCHC 35.8, RDW 14.3, Plt Count 317, MPV 8.8, Gran % 66.6, Lymph % (Auto) 25.5, [place] % (Auto) 6.8 H, Eos % (Auto) 1.0 L, Baso % (Auto) 0.1, Gran # 6.01, Lymph # 2.3 , [place] # 0.6, Eos # 0.1, Baso # 0.01, Sodium 137, Potassium 3.5 L, Chloride 97, Carbon Dioxide 28, Anion Gap 16, BUN 12, Creatinine 1.0, Est GFR ( Amer) > 60, Est GFR (Non-Af Amer) > 60, Random Glucose 116 H, Calcium 9.5, Total Bilirubin 0.4, AST 16, ALT 18, Alkaline Phosphatase 52, Total Protein 7.1, Albumin 4.0, Globulin 3.1, Albumin/Globulin Ratio 1.3, Salicylates < 1 L, Acetaminophen < 10.0 L, Alcohol, Quantitative < 10 Vital Signs Temp Pulse Resp BP Pulse Ox 01/18/17 16:37 73 122/73 01/18/17 06:32 98.4 F 66 18 112/71 01/17/17 16:46 53 L 138/87 01/17/17 06:54 97.9 F 56 L 20 102/59 L 01/16/17 16:22 56 L 112/67 01/16/17 06:00 97.8 F 58 L 12 118/75 01/15/17 16:44 56 L 132/84 01/15/17 06:39 97.3 F L 54 L 18 106/61 01/14/17 16:29 97.2 F L 01/14/17 16:04 56 L 144/97 H 01/14/17 15:29 97.0 F L 01/14/17 06:50 97.7 F 54 L 16 151/91 H 94 L 01/13/17 16:00 60 107/62 01/13/17 06:00 98.2 F 58 L 16 91/63 L 01/12/17 16:21 57 L 122/83 01/12/17 06:00 97.4 F L 54 L 16 138/88 01/11/17 16:24 56 L 141/88 01/11/17 08:33 97.6 F 50 L 20 109/65 01/10/17 16:15 57 L 118/74 01/10/17 10:13 60 12 126/90 94 L 01/10/17 03:40 47 L 16 134/69 89 L 01/09/17 20:37 98.0 F 59 L 18 127/72 97 01/09/17 18:22 51 L 16 119/71 97 01/09/17 18:19 74 18 111/75 100 01/09/17 18:16 51 L 14 131/52 L 97 01/09/17 17:29 68 18 119/75 95 01/09/17 15:55 98.5 F 76 24 146/73 100 01/09/17 15:40 98.8 F 80 16 129/81 99 Temp Pulse Resp BP Pulse Ox 98.0 F 55 L 20 120/79 94 L 01/21/17 07:27 01/21/17 07:27 01/21/17 07:27 01/21/17 07:27 01/14/17 06:50 DSM 5 Symptoms Update: Patient is 61yo SWM with h/o depression and anxiety, h/o multiple admissions in the past (most recent was 05/2016 at [facility] [place] 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 Patient said "I'm fine", patient reported that he feels better on Seroquel, reported to feel less paranoid, reported to feel less anxious. yesterday Abilify was discontinued. Patient tolerates medications well, no side effects observed or reported, medication compliance is good, no behavioral issues. Aims 0, no EPS Diagnostic Results: MDD (major depressive disorder), recurrent episode, severe MERCEDES (generalized anxiety disorder) Neurocognitive disorder Medication Change: Yes (abilify d/c, seroquel started) Medical Record Reviewed: Yes (notes, reports, labs, vitals) Consults ordered or reviewed: medical consult appreciated the medications as well as Flexeril was resumed Mental Status Examination - Cognitive Function Orientation: Person, Place, Situation Memory: Intact Attention: WNL Concentration: Poor - Mood Mood: Depressed, Anxious - Affect Affect: Constricted - Formal Thought Process Formal Thought Process: No Impairment - Suicidal Ideation Suicidal Ideation: No - Homicidal Ideation Homicidal Ideation: No Goal/Treatment Plan - Goal/Treatment Plan Need for Continued Stay: Remain at risks for inpatient hospitalization, Severe depression anxiety, Discharge may exacerbated symptoms, Severe functional impairment Progress Toward Problem(s) and Goals/Treatment Plan: milieu, structure, supportive therapy seroquel 50mg po hs for mood stabilization and paranoia Effexor extended release 225 mg daily for depression and anxiety Klonopin 0.5 mg daily for anxiety Trazodone 150 mg at the nighttime for insomnia as well as for depression vistaril 50 mg at the nighttime for insomnia and anxiety 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
[2017-01-23] MEDS: Venlafaxine 75 mg ER Cap PO SCH (09:00)
--- NOTE | 2017-01-23 16:57 | PCM.PYCHPN ---
Psychiatric Progress Note - Psychiatric Progress Note Patient seen today, length of contact: 30 minutes Patient Chief Complaint: "I am fine, ready for discharge tomorrow" Problems Identified/Issues Discussed: Suicide/ homicide prevention, past psychiatric h/o, current psychiatric symptoms , medical problems, risk/benefits and alternatives of medications, medications compliance, coping strategies, substance abuse h/o, relapse prevention, importance of follow up with psychiatrist and therapist, discharge plan. Medical Problems: HTN, diverticulitis, abdominal hernia, colon resection, hernia repair Diagnostic Results: 01/09/17 16:23 01/11/17 08:00 Lab Results 01/11/17 08:00: Sodium 135, Potassium 3.9, Chloride 102, Carbon Dioxide 27, Anion Gap 10, BUN 12, Creatinine 0.9, Est GFR ( Amer) > 60, Est GFR (Non- Af Amer) > 60, Random Glucose 88, Calcium 8.8 01/11/17 06:50: Fasting Glucose 91, Triglycerides 213 H, Cholesterol 156, LDL Cholesterol Direct 91, HDL Cholesterol 24 L, Free T4 1.00, TSH 3rd Generation 2.05, RPR Nonreactive 01/09/17 17:44: Urine Color Yellow, Urine Appearance Clear, Urine pH 6.5, Ur Specific [place] 1.010, Urine Protein Negative, Urine Glucose (UA) Negative, Urine Ketones Negative, Urine Blood Small H, Urine Nitrate Negative, Urine Bilirubin Negative, Urine Urobilinogen 0.2, Ur Leukocyte Esterase Negative, Urine RBC 1 - 3, Urine WBC 0 - 2, Ur Epithelial Cells 0 - 2, Urine Opiates Screen Negative, Urine Methadone Screen Negative, Ur Barbiturates Screen Negative, Ur Phencyclidine Scrn Negative, Ur Amphetamines Screen Negative, U Benzodiazepines Scrn Negative, U Oth Cocaine Metabols Negative, U Cannabinoids Screen Positive H 01/09/17 16:23: WBC 9.0, RBC 4.80, Hgb 15.4, Hct 43.0, MCV 89.6, MCH 32.1, MCHC 35.8, RDW 14.3, Plt Count 317, MPV 8.8, Gran % 66.6, Lymph % (Auto) 25.5, Parker % (Auto) 6.8 H, Eos % (Auto) 1.0 L, Baso % (Auto) 0.1, Gran # 6.01, Lymph # 2.3 , Parker # 0.6, Eos # 0.1, Baso # 0.01, Sodium 137, Potassium 3.5 L, Chloride 97, Carbon Dioxide 28, Anion Gap 16, BUN 12, Creatinine 1.0, Est GFR ( Amer) > 60, Est GFR (Non-Af Amer) > 60, Random Glucose 116 H, Calcium 9.5, Total Bilirubin 0.4, AST 16, ALT 18, Alkaline Phosphatase 52, Total Protein 7.1, Albumin 4.0, Globulin 3.1, Albumin/Globulin Ratio 1.3, Salicylates < 1 L, Acetaminophen < 10.0 L, Alcohol, Quantitative < 10 Vital Signs Temp Pulse Resp BP Pulse Ox 01/18/17 16:37 73 122/73 01/18/17 06:32 98.4 F 66 18 112/71 01/17/17 16:46 53 L 138/87 01/17/17 06:54 97.9 F 56 L 20 102/59 L 01/16/17 16:22 56 L 112/67 01/16/17 06:00 97.8 F 58 L 12 118/75 01/15/17 16:44 56 L 132/84 01/15/17 06:39 97.3 F L 54 L 18 106/61 01/14/17 16:29 97.2 F L 01/14/17 16:04 56 L 144/97 H 01/14/17 15:29 97.0 F L 01/14/17 06:50 97.7 F 54 L 16 151/91 H 94 L 01/13/17 16:00 60 107/62 01/13/17 06:00 98.2 F 58 L 16 91/63 L 01/12/17 16:21 57 L 122/83 01/12/17 06:00 97.4 F L 54 L 16 138/88 01/11/17 16:24 56 L 141/88 01/11/17 08:33 97.6 F 50 L 20 109/65 01/10/17 16:15 57 L 118/74 01/10/17 10:13 60 12 126/90 94 L 01/10/17 03:40 47 L 16 134/69 89 L 01/09/17 20:37 98.0 F 59 L 18 127/72 97 01/09/17 18:22 51 L 16 119/71 97 01/09/17 18:19 74 18 111/75 100 01/09/17 18:16 51 L 14 131/52 L 97 01/09/17 17:29 68 18 119/75 95 01/09/17 15:55 98.5 F 76 24 146/73 100 01/09/17 15:40 98.8 F 80 16 129/81 99 Temp Pulse Resp BP Pulse Ox 98.0 F 55 L 20 120/79 94 L 01/21/17 07:27 01/21/17 07:27 01/21/17 07:27 01/21/17 07:27 01/14/17 06:50 Temp Pulse Resp BP Pulse Ox 98.1 F 54 L 21 118/73 94 L 01/23/17 07:28 01/23/17 07:28 01/23/17 07:28 01/23/17 07:28 01/14/17 06:50 DSM 5 Symptoms Update: Patient is 61yo SWM with h/o depression and anxiety, h/o multiple admissions in the past (most recent was 05/2016 at [facility]), pt lives independently, 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 Patient said "I'm fine",depression/paranoia/anxiety better, pt is ready for d/c tomorrow. Patient tolerates medications well, no side effects observed or reported, medication compliance is good, no behavioral issues. Aims 0, no EPS Diagnostic Results: MDD (major depressive disorder), recurrent episode, severe MERCEDES (generalized anxiety disorder) Neurocognitive disorder Medication Change: Yes (yesterday) Medical Record Reviewed: Yes (notes, reports, labs, vitals) Consults ordered or reviewed: medical consult appreciated the medications as well as Flexeril was resumed Mental Status Examination - Cognitive Function Orientation: Person, Place, Situation Memory: Intact Attention: WNL Concentration: Poor (better) Association: WNL Fund of Knowledge: Poor (baseline) - Mood Mood: Depressed ("I feel fine") - Affect Affect: Constricted (more reactive) - Speech Speech: Appropriate (poverty of speech and thoughts) - Formal Thought Process Formal Thought Process: No Impairment, Paranoia (better) - Suicidal Ideation Suicidal Ideation: No - Homicidal Ideation Homicidal Ideation: No Goal/Treatment Plan - Goal/Treatment Plan Need for Continued Stay: Remain at risks for inpatient hospitalization, Severe depression anxiety, Discharge may exacerbated symptoms, Severe functional impairment Progress Toward Problem(s) and Goals/Treatment Plan: milieu, structure, supportive therapy seroquel 50mg po hs for mood stabilization and paranoia Effexor extended release 225 mg daily for depression and anxiety Klonopin 0.5 mg daily for anxiety Trazodone 150 mg at the nighttime for insomnia as well as for depression vistaril 50 mg at the nighttime for insomnia and anxiety SW evaluation 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
[2017-01-24 06:35] VITALS: BP 112/71; PULSE 50; RESP 19; TEMP 97.6
[2017-01-24] MEDS: Venlafaxine 75 mg ER Cap PO SCH (08:45)
[2017-01-24] MEDS: Naproxen 550 mg Tab PO PRN (08:55)
--- NOTE | 2017-01-25 18:52 | PCM.PYCHDC ---
Mental Status Examination - Mental Status Examination Orientation: Person, Place, Situation, Time Memory: Intact Mood: Neutral Affect: Constricted Attention: WNL Concentration: WNL Association: WNL Fund of Knowledge: Poor (baseline) Formal Thought Process: No Impairment Description of patient's judgement and insight: Pt has improved insight into mental and medical illness, pt was compliant with medications and unit rules and regulations, pt was going to groups, was calm, cooperative, socially appropriate, no behavioral incidents, no agitation, no aggression. Psychotic Thoughts and Behaviors: Pt denied v/a/t hallucinations, denied paranoid ideations, pt does not appear to be psychotic, and thought process is goal directed. Suicidal Ideation: No Current Homicidal Ideation?: No Plan: pt adamantly denied thoughts of harming self or others denied intent or plan. Discharge Summary - Discharge Note Reason for Hospitalization: depression, anxiety, paranoia Psychiatric History (includes Medical, Family, Personal Hx): multiple psych admissions Laboratory Data: 01/09/17 16:23 01/11/17 08:00 Lab Results 01/11/17 08:00: Sodium 135, Potassium 3.9, Chloride 102, Carbon Dioxide 27, Anion Gap 10, BUN 12, Creatinine 0.9, Est GFR ( Amer) > 60, Est GFR (Non- Af Amer) > 60, Random Glucose 88, Calcium 8.8 01/11/17 06:50: Free T4 1.00, TSH 3rd Generation 2.05 01/11/17 06:50: RPR Nonreactive 01/11/17 06:50: Fasting Glucose 91, Triglycerides 213 H, Cholesterol 156, LDL Cholesterol Direct 91, HDL Cholesterol 24 L 01/09/17 17:44: Urine Opiates Screen Negative, Urine Methadone Screen Negative, Ur Barbiturates Screen Negative, Ur Phencyclidine Scrn Negative, Ur Amphetamines Screen Negative, U Benzodiazepines Scrn Negative, U Oth Cocaine Metabols Negative, U Cannabinoids Screen Positive H 01/09/17 17:44: Urine Color Yellow, Urine Appearance Clear, Urine pH 6.5, Ur Specific [place] 1.010, Urine Protein Negative, Urine Glucose (UA) Negative, Urine Ketones Negative, Urine Blood Small H, Urine Nitrate Negative, Urine Bilirubin Negative, Urine Urobilinogen 0.2, Ur Leukocyte Esterase Negative, Urine RBC 1 - 3, Urine WBC 0 - 2, Ur Epithelial Cells 0 - 2 01/09/17 16:23: Alcohol, Quantitative < 10 01/09/17 16:23: Salicylates < 1 L, Acetaminophen < 10.0 L 01/09/17 16:23: Sodium 137, Potassium 3.5 L, Chloride 97, Carbon Dioxide 28, Anion Gap 16, BUN 12, Creatinine 1.0, Est GFR ( Amer) > 60, Est GFR (Non- Af Amer) > 60, Random Glucose 116 H, Calcium 9.5, Total Bilirubin 0.4, AST 16, ALT 18, Alkaline Phosphatase 52, Total Protein 7.1, Albumin 4.0, Globulin 3.1, Albumin/Globulin Ratio 1.3 01/09/17 16:23: WBC 9.0, RBC 4.80, Hgb 15.4, Hct 43.0, MCV 89.6, MCH 32.1, MCHC 35.8, RDW 14.3, Plt Count 317, MPV 8.8, Gran % 66.6, Lymph % (Auto) 25.5, [place] % (Auto) 6.8 H, Eos % (Auto) 1.0 L, Baso % (Auto) 0.1, Gran # 6.01, Lymph # 2.3 , [place] # 0.6, Eos # 0.1, Baso # 0.01 Vital Signs Temp Pulse Resp BP Pulse Ox 01/24/17 06:35 97.6 F 50 L 19 112/71 01/23/17 16:00 62 128/87 01/23/17 07:28 98.1 F 54 L 21 118/73 01/22/17 16:11 60 166/100 H 01/22/17 06:00 98.3 F 59 L 19 100/62 01/21/17 16:00 63 132/86 01/21/17 07:27 98.0 F 55 L 20 120/79 01/20/17 18:33 97.6 F 01/20/17 18:17 60 111/72 01/20/17 06:30 97.5 F L 52 L 20 118/71 01/19/17 17:55 62 124/76 01/19/17 06:00 98 F 61 18 125/79 01/19/17 05:56 73 122/73 01/18/17 16:37 73 122/73 01/18/17 06:32 98.4 F 66 18 112/71 01/17/17 16:46 53 L 138/87 01/17/17 06:54 97.9 F 56 L 20 102/59 L 01/16/17 16:22 56 L 112/67 01/16/17 06:00 97.8 F 58 L 12 118/75 01/15/17 16:44 56 L 132/84 01/15/17 06:39 97.3 F L 54 L 18 106/61 01/14/17 16:29 97.2 F L 01/14/17 16:04 56 L 144/97 H 01/14/17 15:29 97.0 F L 01/14/17 06:50 97.7 F 54 L 16 151/91 H 94 L 01/13/17 16:00 60 107/62 01/13/17 06:00 98.2 F 58 L 16 91/63 L 01/12/17 16:21 57 L 122/83 01/12/17 06:00 97.4 F L 54 L 16 138/88 01/11/17 16:24 56 L 141/88 01/11/17 08:33 97.6 F 50 L 20 109/65 01/10/17 16:15 57 L 118/74 01/10/17 10:13 60 12 126/90 94 L 01/10/17 03:40 47 L 16 134/69 89 L 01/09/17 20:37 98.0 F 59 L 18 127/72 97 01/09/17 18:22 51 L 16 119/71 97 01/09/17 18:19 74 18 111/75 100 01/09/17 18:16 51 L 14 131/52 L 97 01/09/17 17:29 68 18 119/75 95 01/09/17 15:55 98.5 F 76 24 146/73 100 01/09/17 15:40 98.8 F 80 16 129/81 99 Consultations:: List each consultation separately and include: 1. Reason for request. 2. Findings. 3. Follow-up Consultations: medical consult appreciated the medications as well as Flexeril was resumed Summary of Hospital Course include:: 1. Description of specific treatment plan utilized for patients during their course of treatmen. 2. Summarize the time- course for resolution of acute symptoms and/or regressed behaviors. 3. Describe issues identified and worked on during hospitalization. 4. Describe medication utilized. 5. Describe medical problems identified and treated. 6. Reassessment of suicide risk Summary of Hospital Course: pt was admitted for depression/anxiety/paranoia see admission note by . pt was stabilized on the following medications: seroquel 50mg po hs for mood stabilization and paranoia Effexor extended release 225 mg daily for depression and anxiety Klonopin 0.5 mg daily for anxiety Trazodone 150 mg at the nighttime for insomnia as well as for depression vistaril 50 mg at the nighttime for insomnia and anxiety pt tolerated meds well, no side effects observed or reported, AIMS 0, no EPS. pt was seen by medical team, see notes for more detailed information . Over the course of this hospitalization pt was attending groups, pt also had medication management, had therapeutic milieu. Overall pt improved significantly, pt's affect became brighter, pt was less depressed, has realistic future oriented plans, pt also does not appear to be psychotic, or anxious, pt was socially appropriate, no behavioral issues, pts insight improved as well and soon pt deemed to be ready for discharge. At the time of the discharge pt denied been depressed, denied thoughts of harming self or others, denied psychotic symptoms, and pt does not appeared to be psychotic, denied been anxious, was considered to pose no threat to self or others, will be following with outpatient provider and ICMS worker, information about follow up appointment, time and address provided to the pt, it is patient responsibility to follow up with outpatient clinic, PMD as well as specialists ( see note for more detailed information). In case pt will need to obtain results of studies pending at discharge pt was provided with contact information of Psychiatric Inpatient unit [phone] as well as Medical Record Department [phone]. Nicotine patch was offered Counseling about smoking and alcohol cessation provided smoking cessation treatment program information was provided by the This engineering writer provided pt with the prescription for all of the medications, see medication reconciliation form Pt was educated about safety plan in case of worsening of symptoms or in case of suicidal or homicidal ideation call 911 or go to the nearest ER, also was educated to take meds as prescribed and stay away from drugs, pt verbalized understanding. - Diagnosis (1) MERCEDES (generalized anxiety disorder) Status: Chronic (2) MDD (major depressive disorder), recurrent episode, severe Status: Chronic - Final Diagnosis (DSM 5) Condition upon Discharge: STABLE Disposition: HOME/ ROUTINE Follow-up Treatment Plan: At the time of the discharge pt denied been depressed, denied thoughts of harming self or others, denied psychotic symptoms, and pt does not appeared to be psychotic, denied been anxious, was considered to pose no threat to self or others, will be following with outpatient provider and ICMS worker, information about follow up appointment, time and address provided to the pt, it is patient responsibility to follow up with outpatient clinic, PMD as well as specialists ( see note for more detailed information). In case pt will need to obtain results of studies pending at discharge pt was provided with contact information of Psychiatric Inpatient unit [phone] as well as Medical Record Department [phone]. Nicotine patch was offered Counseling about smoking and alcohol cessation provided smoking cessation treatment program information was provided by the This engineering writer provided pt with the prescription for all of the medications, see medication reconciliation form Pt was educated about safety plan in case of worsening of symptoms or in case of suicidal or homicidal ideation call 911 or go to the nearest ER, also was educated to take meds as prescribed and stay away from drugs, pt verbalized understanding. Prescriptions/Medication Reconciliation: clonazePAM [Klonopin] 0.5 mg PO 1500 #14 tab Cyclobenzaprine [Flexeril] 5 mg PO TID #20 tab hydrOXYzine Pamoate [Vistaril] 50 mg PO HS #14 cap Naproxen [Anaprox DS] 550 mg PO BID PRN #14 tab PRN Reason: Pain, Severe (8-10) Nicotine 21 mg/24 hr [Nicoderm Cq] 1 patch TD DAILY #14 patch QUEtiapine [Seroquel] 50 mg PO HS #14 tab Trazodone HCl 150 mg PO HS #14 tablet Venlafaxine [Effexor XR] 225 mg PO DAILY #45 cer - Smoking Cessation Smoking Cessation Medication prescribed: Yes - Antipsychotic Medications Pt discharged on 2 or more routine antipsychotic medications: No
== END 2017-01-24 14:40 | disposition home or self-care (01) | DRG 430 ==
LOC: ED 15:35 → ERH 18:58 → PSYC 01-10 10:52
PROVIDERS: ADMIT Psychologist; ATTEND Psychologist
DX: F33.2 Major depressive disorder, recurrent severe without psychotic features (principal); F41.1 Generalized anxiety disorder; E87.8 Other disorders of electrolyte and fluid balance, not elsewhere classified; R45.851 Suicidal ideations; E87.6 Hypokalemia; F17.213 Nicotine dependence, cigarettes, with withdrawal; K57.92 Diverticulitis of intestine, part unspecified, without perforation or abscess without bleeding; F12.10 Cannabis abuse, uncomplicated; I10 Essential (primary) hypertension; K46.9 Unspecified abdominal hernia without obstruction or gangrene; Z59.9 Problem related to housing and economic circumstances, unspecified; Z79.899 Other long term (current) drug therapy; Z90.49 Acquired absence of other specified parts of digestive tract; Z93.3 Colostomy status; M06.9 Rheumatoid arthritis, unspecified; E78.5 Hyperlipidemia, unspecified; G47.00 Insomnia, unspecified; F22 Delusional disorders

== ENCOUNTER 2017-03-11 18:00 | Emergency (ER) | payer MEDICAID, OTHER ==
[2017-03-11 18:00] VITALS: BMI 25.0
[2017-03-11 18:25] VITALS: BP 116/82; PULSE 94; RESP 18; TEMP 98.6; O2SAT 96
--- NOTE | 2017-03-11 19:15 | ED PDOC ---
Arrival/HPI - General Chief Complaint: Med Refill Time Seen by Provider: 03/11/17 19:03 Historian: Patient - History of Present Illness Narrative History of Present Illness (Text): 03/11/17 19:33 61 yo M with h/o anxiety and depression presents for refill of his effexor, clonazapam and hydroxyzine. Patient states that he ran out of his medications one week ago and attempted to follow up with his psychiatrist however cannot secure an appointment until March 21 prompting ER evaluation. Patient reports no acute symptoms at this time. Other psychiatric symptoms: (-) hallucinations, (- ) suicidal ideation, (-) homicidal ideation. Otherwise: (-) trauma, (-) fever, ( -)headache, (-) dyspnea, (-) vomiting, (-) substance abuse, (-) patient intent of initiating a suicide attempt, (-) plan. DAMARIS Betancur Past Medical History - Provider Review Nursing Documentation Reviewed: Yes - Past History Past History: Non-Contributing - Infectious Disease Hx of Infectious Diseases: None - Tetanus Immunization Tetanus Immunization: Unknown - Reproductive Currently : No - Past Medical History Past Medical History: No Previous - Cardiac Hx Hypertension: Yes Hx Pacemaker: No - Pulmonary Hx Respiratory Disorders: No Hx Tuberculosis: No - Neurological Hx Neurological Disorder: No Hx Paralysis: No - HEENT Hx HEENT Disorder: No - Renal Hx Renal Disorder: No - Endocrine/Metabolic Hx Endocrine Disorders: No - Hematological/Oncological Hx Blood Disorders: No Hx Blood Transfusions: No Hx Blood Transfusion Reaction: No - Integumentary Hx Dermatological Disorder: No Hx Basal Cell Carcinoma: No Hx Knowles: No Hx Cellulitis: No Hx Eczema: No Hx Melanoma: No Hx Psoriasis: No Hx Squamous Cell Carcinoma: No - Musculoskeletal/Rheumatological Hx Musculoskeletal Disorders: Yes - Gastrointestinal Hx Gastrointestinal Disorders: Yes Hx Bowel Surgery: Yes Hx Colitis: Yes Hx Colostomy: Yes Other/Comment: intestinal cyst historycolostomy - Genitourinary/Gynecological Hx Genitourinary Disorders: No Hx Sexually Transmitted Diseases: No - Psychiatric Hx Psychophysiologic Disorder: No Hx Anxiety: Yes Hx Bipolar Disorder: Yes Hx Depression: Yes Hx Emotional Abuse: No Hx Physical Abuse: No Hx Sexual Abuse: No Hx Substance Use: No - Surgical History Hx Orthopedic Surgery: Yes Other/Comment: Abdominal - colon resection - Anesthesia Hx Anesthesia: Yes Hx Anesthesia Reactions: No Hx Malignant Hyperthermia: No - Suicidal Assessment Feels Threatened In Home Enviroment: No Family/Social History - Physician Review Nursing Documentation Reviewed: Yes Family/Social History: No Known Family HX Smoking Status: Heavy Smoker > 10 Cigarettes Daily Hx Alcohol Use: No Hx Substance Use: No Hx Substance Use Treatment: No Allergies/Home Meds Allergies/Adverse Reactions: Allergies seasonal Allergy (Uncoded 03/11/17 18:25) CONGESTION Home Medications: Home Meds Medication Instructions Recorded Confirmed Gabapentin [Neurontin] 100 mg PO DAILY 11/27/16 01/09/17 Cyclobenzaprine [Flexeril] 0 mg PO DAILY 12/13/16 01/09/17 Naproxen [Anaprox] 500 mg PO BID PRN 12/13/16 01/09/17 Diclofenac 100 mg PO DAILY 01/09/17 01/17/17 Review of Systems - Review of Systems Constitutional: Normal. absent: Fatigue, Weight Change, Fevers Respiratory: Normal. absent: SOB, Cough, Sputum Cardiovascular: Normal. absent: Chest Pain, Palpitations, Edema Gastrointestinal: Normal. absent: Abdominal Pain, Stool Changes, Appetite Changes Musculoskeletal: Normal. absent: Arthralgias, Back Pain, Neck Pain Skin: Normal. absent: Rash, Pruritis, Skin Lesions Neurological: Normal. absent: Headache, Dizziness, Focal Weakness Psychiatric: Normal, Anxiety (chronic), Depression (chronic). absent: Suicidal Ideation Physical Exam - Physical Exam Narrative Physical Exam (Text): 03/11/17 19:36 GENERAL APPEARANCE: Patient is awake, alert, oriented x 3, in no acute distress. SKIN: Warm, dry; (-) cyanosis. HEAD: (-) scalp swelling, (-) scalp tenderness. EYES: (-) conjunctival pallor, (-) scleral icterus, (-) nystagmus. ENMT: Mucous membranes moist. Airway patent: (-) stridor. NECK: (-) tenderness, (-) stiffness, (-) lymphadenopathy. CHEST AND RESPIRATORY: (-) rales, (-) rhonchi, (-) wheezes; breath sounds equal. ABDOMEN: Soft, (-) distention, (-) tenderness, (-) guarding. NEURO AND PSYCH: Mental status as above. Affect: normal. Memory: Intact. hose inspector and patcher: Pupils equal and reactive; EOMI; (-) facial asymmetry; tongue and uvula midline. Strength and DTRs symmetric. Vital Signs Temp Pulse Resp BP Pulse Ox 03/11/17 18:21 98.6 F 94 H 18 116/82 96 Medical Decision Making ED Course and Treatment: 03/11/17 19:05 61 yo M with h/o anxiety and depression presents for refill of his effexor, clonazapam and hydroxyzine. [place] DEVELOPMENT GEOLOGIST aware shows that patient's last clonazepam prescription was written in February 13 for 14 tablets. Patient advised that the ER is not the best place to obtain prescription refill for psychiatric medication, the ER today will provide the patient with a courtesy refill for one week supply of his Effexor, clonazepam and hydroxyzine. Patient strongly advised to call his psychiatrist and to reschedule an appointment so that he can be seen sooner and obtain a proper refill from his psychiatrist for all 3 medications. Patient states he fully agrees with and understands discharge instructions. States that he agrees with the plan and disposition. Verbalized and repeated discharge instructions and plan. I have given the patient opportunity to ask any additional questions. Follow up with psychiatrist in 2 days without fail. Return to the emergency room at any time for any new or worsening symptoms. - PA / ROLL HANDLER / Resident Statement MD/DO has reviewed & agrees with the documentation as recorded. Disposition/Present on Arrival - Present on Arrival Any Indicators Present on Arrival: No History of DVT/PE: No History of Uncontrolled Diabetes: No Urinary Catheter: No History of Decub. Ulcer: No History Surgical Site Infection Following: None - Disposition Have Diagnosis and Disposition been Completed?: Yes Diagnosis: Anxiety, Medication refill Disposition: HOME/ ROUTINE Disposition Time: 19:06 Patient Plan: Discharge Patient Problems: Current Active Problems Problem Status Onset Anxiety Acute Medication refill Acute Condition: GOOD Discharge Instructions (ExitCare): Medicine Refill (ED) Print Language: LAO Additional Instructions: Follow-up with your psychiatrist without fail and obtain all future refills of your psychiatric medications from your psychiatrist. Return to the ER at any time for any new or worsening symptoms. Prescriptions: clonazePAM [clonAZEPAM] 0.5 mg PO DAILY #7 tab hydrOXYzine HCl [Atarax] 50 mg PO BID #14 tab Venlafaxine [Effexor-XR] 75 mg PO TID #21 tab Referrals: Cayetano Bolaños, [Primary Care Provider] - Follow up with primary [facility] [Outside] - Follow up with primary [facility] [Outside] - Follow up with primary
== END 2017-03-11 19:05 | disposition home or self-care (01) ==
LOC: ED 18:00
DX: Z76.0 Encounter for issue of repeat prescription (principal); F41.9 Anxiety disorder, unspecified

== ENCOUNTER 2017-03-14 17:30 | Inpatient (IN) | payer MEDICAID, OTHER ==
[2017-03-14 17:30] VITALS: BMI 25.0
[2017-03-14 17:53] VITALS: O2SAT 95
--- NOTE | 2017-03-14 18:25 | ED PDOC ---
Arrival/HPI - General Chief Complaint: Psychiatric Evaluation Time Seen by Provider: 03/14/17 18:13 Historian: Patient - History of Present Illness Narrative History of Present Illness (Text): 03/14/17 18:21 61 year old male presents to the emergency department with "nervous breakdown" and suicidal ideation, no plan. Denies homicidal ideation. Symptom Onset: Gradual Symptom Course: Unchanged Modifying Factors (Text): None Associated Symptoms (Text): None Past Medical History - Provider Review Nursing Documentation Reviewed: Yes - Past History Past History: Non-Contributing - Infectious Disease Hx of Infectious Diseases: None - Tetanus Immunization Tetanus Immunization: Unknown - Reproductive Currently : No - Past Medical History Past Medical History: No Previous - Cardiac Hx Hypertension: Yes Hx Pacemaker: No - Pulmonary Hx Respiratory Disorders: No Hx Tuberculosis: No - Neurological Hx Neurological Disorder: No Hx Paralysis: No - HEENT Hx HEENT Disorder: No - Renal Hx Renal Disorder: No - Endocrine/Metabolic Hx Endocrine Disorders: No - Hematological/Oncological Hx Blood Disorders: No Hx Blood Transfusions: No Hx Blood Transfusion Reaction: No - Integumentary Hx Dermatological Disorder: No Hx Basal Cell Carcinoma: No Hx Knowles: No Hx Cellulitis: No Hx Eczema: No Hx Melanoma: No Hx Psoriasis: No Hx Squamous Cell Carcinoma: No - Musculoskeletal/Rheumatological Hx Musculoskeletal Disorders: Yes - Gastrointestinal Hx Gastrointestinal Disorders: Yes Hx Bowel Surgery: Yes Hx Colitis: Yes Hx Colostomy: Yes Other/Comment: intestinal cyst historycolostomy - Genitourinary/Gynecological Hx Genitourinary Disorders: No Hx Sexually Transmitted Diseases: No - Psychiatric Hx Psychophysiologic Disorder: No Hx Anxiety: Yes Hx Bipolar Disorder: Yes Hx Depression: Yes Hx Emotional Abuse: No Hx Physical Abuse: No Hx Sexual Abuse: No Hx Substance Use: No - Surgical History Hx Orthopedic Surgery: Yes Other/Comment: Abdominal - colon resection - Anesthesia Hx Anesthesia: Yes Hx Anesthesia Reactions: No Hx Malignant Hyperthermia: No - Suicidal Assessment Feels Threatened In Home Enviroment: No Family/Social History - Physician Review Nursing Documentation Reviewed: Yes Family/Social History: Unknown Family HX Smoking Status: Heavy Smoker > 10 Cigarettes Daily Hx Alcohol Use: No Hx Substance Use: No Hx Substance Use Treatment: No Allergies/Home Meds Allergies/Adverse Reactions: Allergies seasonal Allergy (Uncoded 03/14/17 17:43) CONGESTION Home Medications: Home Meds Medication Instructions Recorded Confirmed Gabapentin [Neurontin] 100 mg PO DAILY 11/27/16 03/14/17 Cyclobenzaprine [Flexeril] 5 mg PO DAILY 03/14/17 03/14/17 hydrOXYzine Pamoate [Vistaril] 50 mg PO TID 03/14/17 03/14/17 Review of Systems - Physician Review All systems were reviewed & negative as marked: Yes Physical Exam - Physical Exam Narrative Physical Exam (Text): - Review of Systems Constitutional: Normal. absent: Fatigue, Weight Change, Fevers Eyes: Normal ENT: Normal Respiratory: Normal absent: SOB, Cough, Sputum Cardiovascular: Normal absent: Chest pain, Palpitations, Syncope Gastrointestinal: Normal absent: Abdominal pain, Diarrhea, Nausea, Vomiting Genitourinary: Normal. absent: Dysuria, Frequency, Hematuria Musculoskeletal: Normal. absent: Arthralgias, Back Pain, Neck Pain Skin: Normal Neurological: Normal absent: Focal Weakness Endocrine: Normal Hemo/Lymphatic: Normal Psychiatric: "Nervous breakdowns", Suicidal ideation (no plan) absent: Homicidal Ideation - Physical exam Patient appears age appropriate, speaking full sentences without difficulty - Systems Exam Head: Present: Atraumatic, Normocephalic Pupils: Present: PERRL Extraocular Muscles: Present: EOMI Conjunctiva: Present: Normal Mouth: Present: Moist Mucous Membranes Neck: Present: Normal Range of Motion. No: MIDLINE TENDERNESS, Paraspinal Tenderness Respiratory/Chest: Present: Clear to Auscultation, Good Air Exchange. No: Respiratory Distress, Accessory Muscle Use, Tachypneic Cardiovascular: Present: Regular Rate and Rhythm, Normal S1, S2, Peripheral Pulses Present. No: Murmurs Abdomen: Present: Normal Bowel Sounds, No: Tenderness, Peritoneal Signs, Rebound, Guarding, Distention Back: Present: Normal Inspection. No: Midline Tenderness, Paraspinal Tenderness Upper Extremity: Present: Normal Inspection. No: Cyanosis, Edema Lower Extremity: Present: Normal Inspection. No: Edema Neurological: Present: GCS=15, Speech Normal, cranial nerves II through XII fully intact with no cerebellar abnormality, neuro-sensory fully intact. No focal neurological deficits. Skin: Present: Warm, Dry, Normal Color. No: Rashes Lymphatic: Present: OX3, NI, NC Psychiatric: Present: Alert, Oriented x 3, Normal Concentration Vital Signs Reviewed: Yes Vital Signs Temp Pulse Resp BP Pulse Ox 03/14/17 22:48 54 L 16 95 03/14/17 17:46 98.1 F 73 16 119/82 95 Temperature: Afebrile Blood Pressure: Normal Pulse: Regular Respiratory Rate: Normal Appearance: Positive for: Well-Appearing, Non-Toxic, Comfortable Pain Distress: None Mental Status: Positive for: Alert and Oriented X 3 Medical Decision Making ED Course and Treatment: Impression: 61 year old male presents to the emergency department with "nervous breakdown" and suicidal ideation, no plan. On physical exam, patient has no acute findings. Plan: -- EKG, Chest X-ray -- Labs -- PES evaluation -- Reassess and disposition Progress Notes: EKG shows NSR at [address]-segment elevations, normal intervals. Interpreted by me. Chest x-ray read by me shows no pneumothorax, no pneumonia, no cardiomegaly, no infiltrates. 03/14/17 21:15 Case discussed with PES worker Tylor who states he discussed with Dr Mcneil and states to admit to behavioral health for major depression. - Lab Interpretations Lab Results: 03/14/17 19:00 03/14/17 19:00 Lab Results 03/14/17 20:10: Urine Opiates Screen Negative, Urine Methadone Screen Negative, Ur Barbiturates Screen Negative, Ur Phencyclidine Scrn Negative, Ur Amphetamines Screen Negative, U Benzodiazepines Scrn Negative, U Oth Cocaine Metabols Negative, U Cannabinoids Screen Positive H 03/14/17 20:10: Urine Color Yellow, Urine Appearance Sl cloudy, Urine pH 6.0, Ur Specific [place] 1.020, Urine Protein Negative, Urine Glucose (UA) Negative, Urine Ketones Negative, Urine Blood Moderate H, Urine Nitrate Negative, Urine Bilirubin Negative, Urine Urobilinogen 0.2, Ur Leukocyte Esterase Negative, Urine RBC 25 - 30, Urine WBC 2 - 5, Ur Epithelial Cells 4 - 5, Urine Bacteria Few 03/14/17 19:00: Alcohol, Quantitative < 10 03/14/17 19:00: Salicylates < 1 L, Acetaminophen < 10.0 L 03/14/17 19:00: Sodium 138, Potassium 3.2 L, Chloride 98, Carbon Dioxide 30, Anion Gap 13, BUN 16, Creatinine 1.3, Est GFR ( Amer) > 60, Est GFR (Non- Af Amer) 57, Random Glucose 85, Calcium 9.2, Total Bilirubin 0.5, AST 13 L, ALT 19, Alkaline Phosphatase 51, Total Creatine Kinase 38, Total Protein 7.2, Albumin 4.1, Globulin 3.1, Albumin/Globulin Ratio 1.3 03/14/17 19:00: WBC 9.1, RBC 5.07, Hgb 16.0, Hct 45.2, MCV 89.2, MCH 31.6, MCHC 35.4, RDW 13.9, Plt Count 282, MPV 8.6, Gran % 62.3, Lymph % (Auto) 27.1, [place] % (Auto) 8.4 H, Eos % (Auto) 2.0, Baso % (Auto) 0.2, Gran # 5.69, Lymph # 2.5, [place] # 0.8 H, Eos # 0.2, Baso # 0.02 - RAD Interpretation Radiology Orders: 03/14/17 18:14 CHEST PORTABLE [RAD] Stat - Medication Orders Current Medication Orders: Potassium Chloride (K-Dur 20 Meq Er Tab) 40 meq PO STAT STA Stop: 03/14/17 22:50 - Scribe Statement The provider has reviewed the documentation as recorded by the Fadi Harding Provider Scribe Attestation: All medical record entries made by the Fadi were at my direction and personally dictated by me. I have reviewed the chart and agree that the record accurately reflects my personal performance of the history, physical exam, medical decision making, and the department course for this patient. I have also personally directed, reviewed, and agree with the discharge instructions and disposition. Disposition/Present on Arrival - Present on Arrival Any Indicators Present on Arrival: No History of DVT/PE: No History of Uncontrolled Diabetes: No Urinary Catheter: No History of Decub. Ulcer: No History Surgical Site Infection Following: None - Disposition Have Diagnosis and Disposition been Completed?: Yes Diagnosis: Major depression Disposition: HOSPITALIZED Disposition Time: 21:15 Patient Plan: Admission Patient Problems: Current Active Problems Problem Status Onset Major depression Acute Condition: FAIR
[2017-03-14 19:11] LABS: ADD MANUAL DIFF? NO
[2017-03-14 19:17] LABS: BASO # 0.02 K/mm3 (0.0-2.0); BASO % 0.2 % (0.0-3.0); EOS # 0.2 (0.0-0.7); GRAN # 5.69 (1.4-6.5); GRAN % 62.3 % (50.0-68.0); HEMATOCRIT 45.2 % (42.0-52.0); LYMPH # 2.5 (1.2-3.4); LYMPH % 27.1 % (22.0-35.0); MEAN CELL VOLUME 89.2 fL (80.0-105.0); MEAN CORPUSCULAR HEMOGLOBIN 31.6 pg (25.0-35.0); MEAN CORPUSCULAR HGB CONC 35.4 g/dl (31.0-37.0); MEAN PLATELET VOLUME 8.6 fl (7.0-11.0); MONO # 0.8 (0.1-0.6); MONO % 8.4 % (1.0-6.0); PLATELET COUNT 282 10^3/uL (120.0-450.0); RED CELL DISTRIBUTION WIDTH 13.9 % (11.5-14.5); WHITE BLOOD COUNT 9.1 10^3/ul (4.5-11.0)
[2017-03-14 19:25] LABS: ALB/GLOB RATIO 1.3 (1.1-1.8); ALKALINE PHOSPHATASE 51 U/L (38-133); ALT/SGPT 19 U/L (7-56); AST/SGOT 13 U/L (15-59); BILIRUBIN,TOTAL 0.5 mg/dL (0.2-1.3); BLOOD UREA NITROGEN 16 mg/dL (7-21); CALCIUM 9.2 mg/dL (8.4-10.5); CARBON DIOXIDE 30 mmol/L (21-33); CHLORIDE 98 mmol/L (98-107); GFR AFRICAN-AMERICAN > 60; GLUCOSE,RANDOM 85 mg/dL (70-110); POTASSIUM 3.2 mmol/L (3.6-5.0); SODIUM 138 mmol/L (132-148); TOTAL PROTEIN 7.2 g/dL (5.8-8.3)
[2017-03-14 20:45] LABS: URINE BILIRUBIN NEGATIVE (NEGATIVE); URINE BLOOD MODERATE (NEGATIVE); URINE GLUCOSE (UA) NEGATIVE (NEGATIVE); URINE KETONE NEGATIVE (NEGATIVE); URINE LEUKOCYTE ESTERASE NEGATIVE Leu/uL (NEGATIVE); URINE PROTEIN NEGATIVE mg/dL (<30 mg/dL); URINE UROBILINOGEN 0.2 E.U./dL (<1 E.U./dL)
[2017-03-14 20:49] LABS: URINE APPEARANCE SL CLOUDY (CLEAR); URINE COLOR YELLOW (YELLOW)
[2017-03-14 21:11] LABS: URINE RBC 25 - 30 /hpf (0-2)
[2017-03-14 21:14] LABS: URINE BACTERIA FEW (NEG)
[2017-03-14] MEDS ORDERED: Potassium Chloride 20 mEq ER Tab PO STA (22:49)
[2017-03-15] MEDS ORDERED: Albuterol-Ipratrop 3 mg / 0.5 (3 ml) UD IH PRN (08:05)
--- NOTE | 2017-03-15 08:11 | CP.PCM.CON ---
<Abel Harding - Last Filed: 03/15/17 08:05> History of Present Illness - History of Present Illness History of Present Illness: This is a 61 yo male with past medical hx of HTN, back pain, diverticulitis admitted to psych unit for "nervous breakdown." Pt currently has no homicidal or suicidal ideation. Pt has had troubles with high blood pressure in the past and admits to wheezing occasionally and the use of a nebulizer. He uses a cane to walk occasionally. He denies fevers, chills, vomiting, diarrhea. He denies chest pain and shortness of breath. He has a history of cigar smoking and he says that a nicotine patch usually helps him with that. PMH: HTN, back pain, seasonal allergies, diverticulitis PSH: colon sx for diverticulitis, hernia repair Allergies: NKDA FH: denies Social hx: Current cigar smoker. Denies drinking. Admits to marijuana use. Lives alone. Review of Systems - Review of Systems All systems: reviewed and no additional remarkable complaints except Review of Systems: Negative except per HPI. Past Patient History - Infectious Disease Hx of Infectious Diseases: None - Tetanus Immunizations Tetanus Immunization: Unknown - Past Medical History & Family History Past Medical History?: Yes Past Family History: Reviewed and not pertinent - Past Social History Smoking Status: Smoker Currrent Status Unknown Chewing Tobacco Use: No Cigar Use: Yes Alcohol: None Drugs: Cannabis Home Situation {Lives}: Alone Domestic Violence: Negative - CARDIAC Hx Hypertension: Yes Hx Pacemaker: No - PULMONARY Hx Respiratory Disorders: No Hx Tuberculosis: No - NEUROLOGICAL Hx Neurological Disorder: No Hx Paralysis: No - HEENT Hx HEENT Problems: No - RENAL Hx Chronic Kidney Disease: No - ENDOCRINE/METABOLIC Hx Endocrine Disorders: No - HEMATOLOGICAL/ONCOLOGICAL Hx Blood Disorders: No Hx Blood Transfusions: No Hx Blood Transfusion Reaction: No - INTEGUMENTARY Hx Dermatological Problems: No Hx Basil Cell: No Hx Knowles: No Hx Cellulitis: No Hx Eczema: No Hx Melanoma: No Hx Psoriasis: No Hx Squamous Cell: No - MUSCULOSKELETAL/RHEUMATOLOGICAL Hx Musculoskeletal Disorders: Yes - GASTROINTESTINAL Hx Gastrointestinal Disorders: Yes Hx Bowel Surgery: Yes Hx Colitis: Yes Hx Colostomy: Yes Other/Comment: intestinal cyst historycolostomy - GENITOURINARY/GYNECOLOGICAL Hx Genitourinary Disorders: No Hx Sexually Transmitted Disorders: No - PSYCHIATRIC Hx Psychophysiologic Disorder: No Hx Anxiety: Yes Hx Bipolar Disorder: Yes Hx Depression: Yes Hx Emotional Abuse: No Hx Physical Abuse: No Hx Sexual Abuse: No Hx Substance Use: Yes - SURGICAL HISTORY Hx Orthopedic Surgery: Yes Other/Comment: Abdominal - colon resection - ANESTHESIA Hx Anesthesia: Yes Hx Anesthesia Reactions: No Hx Malignant Hyperthermia: No Meds Allergies/Adverse Reactions: Allergies Allergy/AdvReac Type Severity Reaction Status Date / Time seasonal Allergy CONGESTION Uncoded 03/14/17 17:43 - Medications Medications: Current Medications Clonazepam (Klonopin) 0.5 mg PO 1500 JASON PRN Reason: Protocol Last Admin: 03/15/17 00:07 Dose: 0.5 mg Cyclobenzaprine HCl (Flexeril) 5 mg PO DAILY JASON Gabapentin (Neurontin) 100 mg PO DAILY JASON PRN Reason: Protocol Hydroxyzine Pamoate (Vistaril) 50 mg PO TID JASON PRN Reason: Protocol Last Admin: 03/15/17 00:07 Dose: 50 mg Naproxen (Anaprox Ds) 550 mg PO BID [facility] Nicotine (Nicoderm Cq) 1 patch TD DAILY JASON Trazodone HCl (Desyrel) 50 mg PO HS [facility] Last Admin: 03/15/17 00:07 Dose: 50 mg Physical Exam - Constitutional Appears: Non-toxic, No Acute Distress - Head Exam Head Exam: ATRAUMATIC, NORMAL INSPECTION, NORMOCEPHALIC - Eye Exam Eye Exam: EOMI - ENT Exam ENT Exam: Mucous Membranes Moist - Neck Exam Neck exam: Positive for: Full Rom, Normal Inspection - Respiratory Exam Respiratory Exam: NORMAL BREATHING PATTERN. absent: Respiratory Distress - Cardiovascular Exam Cardiovascular Exam: +S1, +S2 - GI/Abdominal Exam GI & Abdominal Exam: Normal Bowel Sounds. absent: Tenderness Additional comments: Surgical scar left abdomen, ruq - Extremities Exam Extremities exam: Positive for: full ROM, normal inspection - Back Exam Back exam: NORMAL INSPECTION - Neurological Exam Neurological exam: Alert, Oriented x3 - Psychiatric Exam Psychiatric exam: Flat Affect - Skin Skin Exam: Dry, Intact, Normal Color, Warm Results - Vital Signs Recent Vital Signs: Last Vital Signs Temp 97.6 F 03/15/17 07:45 Pulse 46 L 03/15/17 07:45 Resp 18 03/14/17 23:35 BP 130/80 03/14/17 22:48 Pulse Ox 95 03/14/17 22:48 - Labs Result Diagrams: 03/14/17 19:00 03/14/17 19:00 Assessment & Plan - Assessment and Plan (Free Text) Assessment: This is a 61 yo male with past medical hx of back pain, HTN, diverticulitis, anxiety/depression presenting to psych unit, medical consult requested 1. Hx of HTN -bp well controlled, continue to monitor -f/u labs 2. Hx of wheezing -pt uses nebulizer occasionally at home -duonebs prn -continue to monitor 3. Hx of tobacco abuse -nicotine patch 4. Anxiety/depression -management per psych discussed with Dr. Garcia <Kallie Garcia - Last Filed: 03/15/17 16:03> Meds - Medications Medications: Current Medications Albuterol/Ipratropium (Duoneb 3 Mg/0.5 Mg (3 Ml) Ud) 3 ml IH Q2H PRN PRN Reason: Shortness of Breath Clonazepam (Klonopin) 0.5 mg PO 1500 JASON PRN Reason: Protocol Last Admin: 03/15/17 14:50 Dose: 0.5 mg Cyclobenzaprine HCl (Flexeril) 5 mg PO DAILY JASON Fluoxetine HCl (Prozac) 10 mg PO DAILY JASON Last Admin: 03/15/17 14:50 Dose: 10 mg Gabapentin (Neurontin) 100 mg PO DAILY JASON Hydroxyzine Pamoate (Vistaril) 50 mg PO TID PRN; Protocol PRN Reason: Anxiety Naproxen (Anaprox Ds) 550 mg PO BID [facility] Nicotine (Nicoderm Cq) 1 patch TD DAILY JASON Last Admin: 03/15/17 10:13 Dose: 1 patch Quetiapine Fumarate (Seroquel) 50 mg PO HS JASON PRN Reason: Protocol Trazodone HCl (Desyrel) 50 mg PO HS JASON Last Admin: 03/15/17 00:07 Dose: 50 mg Results - Vital Signs Recent Vital Signs: Last Vital Signs Temp 97.6 F 03/15/17 07:45 Pulse 46 L 03/15/17 07:45 Resp 18 03/14/17 23:35 BP 130/80 03/14/17 22:48 Pulse Ox 95 03/14/17 22:48 - Labs Result Diagrams: 03/14/17 19:00 03/15/17 05:00 Labs: Laboratory Results - last 24 hr 03/15/17 03/15/17 05:00 07:30 Sodium 137 Potassium 3.8 Chloride 101 Carbon Dioxide 30 Anion Gap 10 BUN 16 Creatinine 1.1 Est GFR ( Amer) > 60 Est GFR (Non-Af Amer) > 60 Random Glucose 82 Fasting Glucose 82 Calcium 9.1 Total Bilirubin 0.5 AST 13 L ALT 24 Alkaline Phosphatase 42 Total Protein 6.6 Albumin 3.9 Globulin 2.7 Albumin/Globulin Ratio 1.4 Triglycerides 257 H Cholesterol 137 LDL Cholesterol Direct 83 HDL Cholesterol 25 L TSH 3rd Generation 4.29 Attending/Attestation - Attestation I have personally seen and examined this patient.: Yes I have fully participated in the care of the patient.: Yes I have reviewed all pertinent clinical information: Yes Notes (Text): 03/15/17 15:54 attending note; Patient seen and examined with resident In psychiatric floor. patient evaluated for Routine medical consult. This is a 61 year male with past medical hx of HTN, back pain, diverticulitis admitted to psych unit for "nervous breakdown." Pt currently has no homicidal or suicidal ideation. lab work reviewed. Hypertension; currently blood pressure is controlled. Start Cozaar 50 mg as needed. active smoking; smoking cessation is advised. Started on NicoDerm patch. Marijuana abuse; cessation is strongly advised. History of asthma; DuoNeb prn ordered. Episodes of microscopic hematuria. Denies any complaints. Needs urology workup as outpatient. Upon discharge the patient will follow-up with Dr. Viera. 03/15/17 16:02
[2017-03-15 08:27] LABS: ALB/GLOB RATIO 1.4 (1.1-1.8); ALKALINE PHOSPHATASE 42 U/L (38-133); ALT/SGPT 24 U/L (7-56); AST/SGOT 13 U/L (15-59); BILIRUBIN,TOTAL 0.5 mg/dL (0.2-1.3); BLOOD UREA NITROGEN 16 mg/dL (7-21); CALCIUM 9.1 mg/dL (8.4-10.5); CARBON DIOXIDE 30 mmol/L (21-33); CHLORIDE 101 mmol/L (98-107); CHOLESTEROL 137 mg/dL (130-200); GFR AFRICAN-AMERICAN > 60; GLUCOSE,FASTING 82 mg/dL (65-110); GLUCOSE,RANDOM 82 mg/dL (70-110); POTASSIUM 3.8 mmol/L (3.6-5.0); SODIUM 137 mmol/L (132-148); TOTAL PROTEIN 6.6 g/dL (5.8-8.3)
[2017-03-15] MEDS ORDERED: Naproxen 550 mg Tab PO SCH ×2 (09:02→10:00)
--- NOTE | 2017-03-15 09:52 | RAD ---
HISTORY: med clearance COMPARISON: 01/09/2017 FINDINGS: LUNGS: No active pulmonary disease. PLEURA: No significant pleural effusion identified, no pneumothorax apparent. CARDIOVASCULAR: Normal. OSSEOUS STRUCTURES: No significant abnormalities. VISUALIZED UPPER ABDOMEN: Normal. OTHER FINDINGS: None. IMPRESSION: No active disease.
--- NOTE | 2017-03-15 14:53 | PCM.PSYCH ---
Initial Psychiatric Evaluation - Initial Psychiatric Evaluation Type of Admission: Voluntary Legal Status: Capacity (patient has capacity to sign consent for treatment) Chief Complaint (in patient's own words): "this time you better fix me, I had a nervous brake down, it means my nerves were broke". Patient's Reaction to Hospitalization: pt was admitted for depressive symptoms, possible suicidal ideation, no plan History of Present Illness and Precipitating Events: Patient is 61yo SWM with h/o depression and anxiety, h/o multiple admissions in the past ([place] recent [place] [facility] [place] pt lives independently, has poor social support, currently on unemployment for trauma at work, multiple medical problems such as partial colon resection for his diverticulosis, h/o rheumatoid arthritis, was admitted for evaluation and stabilization of depressive symptoms , worsening of anxiety, inability to function and passive wishes as well as "nervous brake down". pt is very familiar to this unit. marginal personal hygiene, good ADLs. 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 briefly pt said "medications stopped working", (as per pharmacy, pt was not filling his meds since January), pt also said that he was shaky, and was feeling that "my nerves will brake down". pt reported smoking weed twice a day "to calm down". pt reported to hear some noises, denied command type hallucinations. smokes about pack a day, denied any alcohol consumption, counseling provided, nicotine patch provided. 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 medical h/o: see above partial colon resection for his diverticulosis, h/o rheumatoid arthritis family h/o: ? 03/14/17 19:00 03/15/17 05:00 Lab Results 03/15/17 07:30: TSH 3rd Generation 4.29 03/15/17 05:00: Sodium 137, Potassium 3.8, Chloride 101, Carbon Dioxide 30, Anion Gap 10, BUN 16, Creatinine 1.1, Est GFR ( Amer) > 60, Est GFR (Non- Af Amer) > 60, Random Glucose 82, Fasting Glucose 82, Calcium 9.1, Total Bilirubin 0.5, AST 13 L, ALT 24, Alkaline Phosphatase 42, Total Protein 6.6, Albumin 3.9, Globulin 2.7, Albumin/Globulin Ratio 1.4, Triglycerides 257 H, Cholesterol 137, LDL Cholesterol Direct 83, HDL Cholesterol 25 L 03/14/17 20:10: Urine Opiates Screen Negative, Urine Methadone Screen Negative, Ur Barbiturates Screen Negative, Ur Phencyclidine Scrn Negative, Ur Amphetamines Screen Negative, U Benzodiazepines Scrn Negative, U Oth Cocaine Metabols Negative, U Cannabinoids Screen Positive H 03/14/17 20:10: Urine Color Yellow, Urine Appearance Sl cloudy, Urine pH 6.0, Ur Specific [place] 1.020, Urine Protein Negative, Urine Glucose (UA) Negative, Urine Ketones Negative, Urine Blood Moderate H, Urine Nitrate Negative, Urine Bilirubin Negative, Urine Urobilinogen 0.2, Ur Leukocyte Esterase Negative, Urine RBC 25 - 30, Urine WBC 2 - 5, Ur Epithelial Cells 4 - 5, Urine Bacteria Few 03/14/17 19:00: Alcohol, Quantitative < 10 03/14/17 19:00: Salicylates < 1 L, Acetaminophen < 10.0 L 03/14/17 19:00: Sodium 138, Potassium 3.2 L, Chloride 98, Carbon Dioxide 30, Anion Gap 13, BUN 16, Creatinine 1.3, Est GFR ( Amer) > 60, Est GFR (Non- Af Amer) 57, Random Glucose 85, Calcium 9.2, Total Bilirubin 0.5, AST 13 L, ALT 19, Alkaline Phosphatase 51, Total Creatine Kinase 38, Total Protein 7.2, Albumin 4.1, Globulin 3.1, Albumin/Globulin Ratio 1.3 03/14/17 19:00: WBC 9.1, RBC 5.07, Hgb 16.0, Hct 45.2, MCV 89.2, MCH 31.6, MCHC 35.4, RDW 13.9, Plt Count 282, MPV 8.6, Gran % 62.3, Lymph % (Auto) 27.1, [place] % (Auto) 8.4 H, Eos % (Auto) 2.0, Baso % (Auto) 0.2, Gran # 5.69, Lymph # 2.5, [place] # 0.8 H, Eos # 0.2, Baso # 0.02 Vital Signs Temp Pulse Resp BP Pulse Ox 03/15/17 07:45 97.6 F 46 L 03/14/17 23:35 18 03/14/17 22:48 97.8 F 54 L 16 130/80 95 03/14/17 17:46 98.1 F 73 16 119/82 95 Current Medications: Active Medications Generic Name Dose Route Start Last Admin Trade Name Freq PRN Reason Stop Dose Admin Albuterol/Ipratropium 3 ml 03/15/17 08:05 Duoneb 3 Mg/0.5 Mg (3 Ml) Ud IH Q2H PRN Shortness of Breath Clonazepam 0.5 mg 03/14/17 23:30 03/15/17 00:07 Klonopin PO 0.5 mg 1500 JASON Administration Protocol Cyclobenzaprine HCl 5 mg 03/16/17 08:00 Flexeril PO DAILY JASON Gabapentin 100 mg 03/16/17 08:00 Neurontin PO DAILY JASON Hydroxyzine Pamoate 50 mg 03/14/17 23:29 03/15/17 13:18 Vistaril PO 50 mg TID JASON Administration Protocol Naproxen 550 mg 03/15/17 09:24 Anaprox Ds PO BID JASON Nicotine 1 patch 03/15/17 08:15 03/15/17 10:13 Nicoderm Cq TD 1 patch DAILY JASON Administration Quetiapine Fumarate 50 mg 03/15/17 22:00 Seroquel PO HS JASON Protocol Trazodone HCl 50 mg 03/14/17 23:30 03/15/17 00:07 Desyrel PO 50 mg HS JASON Administration Past Psychiatric History - Past Psychiatric History Previous Treatment History: Inpatient Prior Professional Help: see HPI Prior Psychiatric Treatment: see HPI At what hospital: see HPI Duration: see HPI Nature of Treatment: see HPI Explanation of prior treatment: see HPI History of Abuse: see HPI History of ETOH/Drug Use: see HPI History of Family Illness: see HPI Pertinent Medical Hx (Current Medical&Sleep Prob, Allergies): Allergies Allergy/AdvReac Type Severity Reaction Status Date / Time seasonal Allergy CONGESTION Uncoded 03/14/17 17:43 Gabapentin [Neurontin] 100 mg PO DAILY 11/27/16 Trazodone HCl 150 mg PO HS #14 tablet 01/23/17 clonazePAM [Klonopin] 0.5 mg PO 1500 #14 tab 01/23/17 Naproxen [Anaprox DS] 550 mg PO BID PRN #14 tab 01/24/17 Venlafaxine [Effexor-XR] 75 mg PO TID #21 tab 03/11/17 Cyclobenzaprine [Flexeril] 5 mg PO DAILY 03/14/17 hydrOXYzine Pamoate [Vistaril] 50 mg PO TID 03/14/17 Review of Systems - Review of Systems Systems not reviewed;Unavailable: Acuity of Condition - EENT Eyes: As Per HPI Ears: As Per HPI Nose/Mouth/Throat: As Per HPI - Cardiovascular Cardiovascular: As Per HPI - Respiratory Respiratory: As Per HPI - Gastrointestinal Gastrointestinal: As Per HPI - Genitourinary Genitourinary: As Per HPI - Reproductive: Male Reproductive:Male: As Per HPI - Musculoskeletal Musculoskeletal: As Par HPI - Integumentary Integumentary: As Per HPI - Neurological Neurological: As Per HPI - Psychiatric Psychiatric: As Per HPI - Endocrine Endocrine: As Per HPI - Hematologic/Lymphatic Hematologic: As Per HPI Mental Status Examination - Personal Presentation Personal Presentation: Looks stated age - Affect Affect: Flat - Motor Activity Motor Activity: Psychomotor Retardation - Reliability in Providing Information Reliability in Providing Information: Poor, due to alteration in thoughts, Poor , due to altered mood, Poor, due to cognitve impairment - Speech Speech: Disorganized, Other (poverty of speech) - Mood Mood: Depressed, Anxious - Formal Thought Process Formal Thought Process: Hallucinations - Hallucinations/Delusions Hallucinations: Auditory ("I hear some noises") - Obsessions/Compulsions Obsessions: None Compulsions: None - Cognitive Functions Orientation: Person, Place, Situation Sensorium: Alert Attention/Concentration: Easily distracted Abstract Thinking: [place] Estimate of Intelligence: Below average Judgement: Intact, as evidence by: Insight regarding need for hospitalization - Risk Risk: Suicidal, Diminished functioning - Strength & Assets Inventory Strength & Assets Inventory: Employment history, Cooperative - Limitations Limitations: Other (cognitive limitations) DSM 5 DX - DSM 5 DSM 5 Diagnosis: MDD (major depressive disorder), recurrent episode, severe MERCEDES (generalized anxiety disorder) Neurocognitive disorder cannabis abuse - Recommended/Plan of Treatment Treatment Recommendations and Plan of Treatment: milieu/structure/supportive therapy Gabapentin [Neurontin] 100 mg PO DAILY Trazodone HCl 50 mg PO HS for depression and insomnia prozac 10mg po daily for mdd and anxiety clonazePAM [Klonopin] 0.5 mg PO 1500 for anxiety Naproxen [Anaprox DS] 550 mg PO BID PRN Venlafaxine [Effexor-XR] 75 mg PO TID will be d/c pt was noncompliant Cyclobenzaprine [Flexeril] 5 mg PO DAILY hydrOXYzine Pamoate [Vistaril] 50 mg PO TID prn anxiety medical consult collaterals from [facility] will monitor closely Projected ELOS: 10days Prognosis: guarded Discharge Plan and Discharge Criteria: Pt will be not depressed or manic, will be more hopeful, will be not psychotic or anxious, will be tolerating medications well, will not have major side effects, will be able to function, will not pose threat to self or others. - Smoking Cessation Smoking Cessation Initiated: Yes
[2017-03-15] MEDS: Naproxen 550 mg Tab PO SCH (18:11)
--- NOTE | 2017-03-16 08:38 | PCM.PYCHPN ---
Psychiatric Progress Note - Psychiatric Progress Note Patient seen today, length of contact: 25 min Problems Identified/Issues Discussed: I reviewed recent notes and met with patient at bedside. Grooming is a little unkempt. Despite multiple visits to patient at bedside he refuses to engage in an interview with me though it is obvious that he is awake. Shaw notes indicate the patient has been calm and quiet but isolative on the unit thus far. Can be friendly and pleasant, appears brighter. Patient has denied suicidal thoughts and paranoia.There were no behavioral issues overnight. Diagnostic Results: MDD (major depressive disorder), recurrent episode, severe MERCEDES (generalized anxiety disorder) Neurocognitive disorder cannabis abuse Medication Change: No Medical Record Reviewed: Yes (reports, labs, vitals, notes) Mental Status Examination - Cognitive Function Orientation: Person, Place, Situation - Mood Mood: Depressed, Anxious - Affect Affect: Flat - Formal Thought Process Formal Thought Process: Hallucinations - Suicidal Ideation Suicidal Ideation: No - Homicidal Ideation Homicidal Ideation: No Goal/Treatment Plan - Goal/Treatment Plan Progress Toward Problem(s) and Goals/Treatment Plan: * c/w current tx and plan * No new weekend labs * Vitals reviewed and noted below: Selected Entries 03/14/17 03/15/17 03/15/17 22:48 07:45 16:26 Temperature 97.8 F 97.6 F Pulse Rate 54 L 46 L 50 L Respiratory 16 Rate Blood Pressure 130/80 98/54 L
[2017-03-16] MEDS: Naproxen 550 mg Tab PO SCH ×2 (09:23→18:21)
--- NOTE | 2017-03-16 16:19 | CARD ---
APPROVED REPORT EKG Measurement Heart [id number] <Conclusion> Sinus bradycardia Incomplete right bundle branch block Nonspecific T wave abnormality Abnormal ECG
--- NOTE | 2017-03-17 08:41 | PCM.PYCHPN ---
Psychiatric Progress Note - Psychiatric Progress Note Patient seen today, length of contact: 25 min Patient Chief Complaint: "better, still depressed and paranoid" Problems Identified/Issues Discussed: I reviewed recent notes and met with patient at bedside. Grooming appears a little unkempt. He is more cooperative with my questioning this morning. Oriented x3. Indicates that he remains depressed and paranoid but feeling a little bit better with the medications. He is neither hopeless or hopeful. Denies wishes or suicidal thoughts. . Staff notes indicate the patient has been calm and quiet but isolative on the unit thus far. Can be friendly and pleasant, still appears brighter than admission. Patient has denied suicidal thoughts and paranoia. There were no behavioral issues overnight. Diagnostic Results: MDD (major depressive disorder), recurrent episode, severe MERCEDES (generalized anxiety disorder) Neurocognitive disorder cannabis abuse Medication Change: No Medical Record Reviewed: Yes (reports, labs, vitals, notes) Mental Status Examination - Cognitive Function Orientation: Person, Place, Situation Attention: WNL Concentration: Poor Association: Loose - Mood Mood: Depressed ("depressed and paranoid but getting better with medications"), Anxious - Affect Affect: Flat - Formal Thought Process Formal Thought Process: Hallucinations (denies today), Paranoia - Suicidal Ideation Suicidal Ideation: No - Homicidal Ideation Homicidal Ideation: No Goal/Treatment Plan - Goal/Treatment Plan Progress Toward Problem(s) and Goals/Treatment Plan: * c/w current tx and plan * No new weekend labs * Vitals reviewed and noted below: Selected Entries 03/17/17 07:48 Temperature 97.7 F Pulse Rate 48 L Respiratory 20 Rate Blood Pressure 102/58 L
[2017-03-17] MEDS: Naproxen 550 mg Tab PO SCH ×2 (09:06→16:11)
[2017-03-18] MEDS: Naproxen 550 mg Tab PO SCH ×2 (09:25→16:14)
--- NOTE | 2017-03-18 16:28 | PCM.PYCHPN ---
Psychiatric Progress Note - Psychiatric Progress Note Patient seen today, length of contact: 30min Patient Chief Complaint: "I am not well, I don't know why, you are a doctor" Problems Identified/Issues Discussed: Suicide/ homicide prevention, past psychiatric h/o, current psychiatric symptoms , medical problems, risk/benefits and alternatives of medications, medications compliance, coping strategies, substance abuse h/o, relapse prevention, importance of follow up with psychiatrist and therapist, discharge plan. Medical Problems: see HPI Diagnostic Results: 03/14/17 19:00 03/15/17 05:00 Lab Results 03/15/17 07:30: RPR Nonreactive 03/15/17 07:30: TSH 3rd Generation 4.29 03/15/17 05:00: Sodium 137, Potassium 3.8, Chloride 101, Carbon Dioxide 30, Anion Gap 10, BUN 16, Creatinine 1.1, Est GFR ( Amer) > 60, Est GFR (Non- Af Amer) > 60, Random Glucose 82, Fasting Glucose 82, Calcium 9.1, Total Bilirubin 0.5, AST 13 L, ALT 24, Alkaline Phosphatase 42, Total Protein 6.6, Albumin 3.9, Globulin 2.7, Albumin/Globulin Ratio 1.4, Triglycerides 257 H, Cholesterol 137, LDL Cholesterol Direct 83, HDL Cholesterol 25 L 03/14/17 20:10: Urine Opiates Screen Negative, Urine Methadone Screen Negative, Ur Barbiturates Screen Negative, Ur Phencyclidine Scrn Negative, Ur Amphetamines Screen Negative, U Benzodiazepines Scrn Negative, U Oth Cocaine Metabols Negative, U Cannabinoids Screen Positive H 03/14/17 20:10: Urine Color Yellow, Urine Appearance Sl cloudy, Urine pH 6.0, Ur Specific [place] 1.020, Urine Protein Negative, Urine Glucose (UA) Negative, Urine Ketones Negative, Urine Blood Moderate H, Urine Nitrate Negative, Urine Bilirubin Negative, Urine Urobilinogen 0.2, Ur Leukocyte Esterase Negative, Urine RBC 25 - 30, Urine WBC 2 - 5, Ur Epithelial Cells 4 - 5, Urine Bacteria Few 03/14/17 19:00: Alcohol, Quantitative < 10 03/14/17 19:00: Salicylates < 1 L, Acetaminophen < 10.0 L 03/14/17 19:00: Sodium 138, Potassium 3.2 L, Chloride 98, Carbon Dioxide 30, Anion Gap 13, BUN 16, Creatinine 1.3, Est GFR ( Amer) > 60, Est GFR (Non- Af Amer) 57, Random Glucose 85, Calcium 9.2, Total Bilirubin 0.5, AST 13 L, ALT 19, Alkaline Phosphatase 51, Total Creatine Kinase 38, Total Protein 7.2, Albumin 4.1, Globulin 3.1, Albumin/Globulin Ratio 1.3 03/14/17 19:00: WBC 9.1, RBC 5.07, Hgb 16.0, Hct 45.2, MCV 89.2, MCH 31.6, MCHC 35.4, RDW 13.9, Plt Count 282, MPV 8.6, Gran % 62.3, Lymph % (Auto) 27.1, [place] % (Auto) 8.4 H, Eos % (Auto) 2.0, Baso % (Auto) 0.2, Gran # 5.69, Lymph # 2.5, [place] # 0.8 H, Eos # 0.2, Baso # 0.02 Vital Signs Temp Pulse Resp BP Pulse Ox 03/18/17 07:49 98.1 F 48 L 20 114/64 03/17/17 14:00 62 141/98 H 03/17/17 07:48 97.7 F 48 L 20 102/58 L 03/16/17 14:00 50 L 139/85 03/16/17 06:41 98.2 F 44 L 20 123/75 03/15/17 16:26 50 L 98/54 L 03/15/17 07:45 97.6 F 46 L 03/14/17 23:35 18 03/14/17 22:48 97.8 F 54 L 16 130/80 95 03/14/17 17:46 98.1 F 73 16 119/82 95 DSM 5 Symptoms Update: Patient is 61yo SWM with h/o depression and anxiety, h/o multiple admissions in the past (most recent was two months ago [facility] [place] pt lives independently, has poor social support, currently on unemployment for trauma at work, multiple medical problems such as partial colon resection for his diverticulosis, h/o rheumatoid arthritis, was admitted for evaluation and stabilization of depressive symptoms , worsening of anxiety, inability to function and passive wishes as well as "nervous brake down". pt is very familiar to this unit. marginal personal hygiene, good ADLs. seen at the dinning area, pt obviously has concrete thought process, pt said that he is not doing well, had difficulties to express why "in regard the doctor , you need to figure out why". pt said that he slept well, reported to be depressed. pt reported to hear some noises, denied command type hallucinations. patient tolerates medications well, no side effects observed or reported, aims 0 , no EPS. Impression: DSM 5 Diagnosis: MDD (major depressive disorder), recurrent episode, severe MERCEDES (generalized anxiety disorder) Neurocognitive disorder cannabis abuse Medication Change: Yes (prozac increased, Neurontin increased.) Medical Record Reviewed: Yes (reports, labs, vitals, notes) Consults ordered or reviewed: medical consult appreciated Mental Status Examination - Cognitive Function Orientation: Person, Place, Situation Memory: Impaired Attention: WNL Concentration: Poor Association: Loose Fund of Knowledge: Poor - Mood Mood: Depressed ("depressed and paranoid but getting better with medications"), Anxious - Affect Affect: Flat - Formal Thought Process Formal Thought Process: Hallucinations (denies today), Paranoia - Suicidal Ideation Suicidal Ideation: No - Homicidal Ideation Homicidal Ideation: No Goal/Treatment Plan - Goal/Treatment Plan Need for Continued Stay: Remain at risks for inpatient hospitalization, Severe depression anxiety, Discharge may exacerbated symptoms, Severe functional impairment Progress Toward Problem(s) and Goals/Treatment Plan: milieu/structure/supportive therapy Gabapentin [Neurontin] 100 mg PO 3 times a day Trazodone HCl 50 mg PO HS for depression and insomnia prozac 20mg po daily for mdd and anxiety clonazePAM [Klonopin] 0.5 mg PO 1500 for anxiety Naproxen [Anaprox DS] 550 mg PO BID PRN Cyclobenzaprine [Flexeril] 5 mg PO DAILY hydrOXYzine Pamoate [Vistaril] 50 mg PO TID prn anxiety medical consult collaterals from [facility] will monitor closely Estimated Date of D/C: 03/22/17 (we'll monitor closely)
[2017-03-19] MEDS: Naproxen 550 mg Tab PO SCH ×2 (08:48→17:58)
--- NOTE | 2017-03-19 16:03 | PCM.PYCHPN ---
Psychiatric Progress Note - Psychiatric Progress Note Patient seen today, length of contact: 30min Patient Chief Complaint: "I am not well, I don't know why, you are a doctor, you need to figure out" Problems Identified/Issues Discussed: Suicide/ homicide prevention, past psychiatric h/o, current psychiatric symptoms , medical problems, risk/benefits and alternatives of medications, medications compliance, coping strategies, substance abuse h/o, relapse prevention, importance of follow up with psychiatrist and therapist, discharge plan. Medical Problems: see HPI Diagnostic Results: 03/14/17 19:00 03/15/17 05:00 Lab Results 03/15/17 07:30: RPR Nonreactive 03/15/17 07:30: TSH 3rd Generation 4.29 03/15/17 05:00: Sodium 137, Potassium 3.8, Chloride 101, Carbon Dioxide 30, Anion Gap 10, BUN 16, Creatinine 1.1, Est GFR ( Amer) > 60, Est GFR (Non- Af Amer) > 60, Random Glucose 82, Fasting Glucose 82, Calcium 9.1, Total Bilirubin 0.5, AST 13 L, ALT 24, Alkaline Phosphatase 42, Total Protein 6.6, Albumin 3.9, Globulin 2.7, Albumin/Globulin Ratio 1.4, Triglycerides 257 H, Cholesterol 137, LDL Cholesterol Direct 83, HDL Cholesterol 25 L 03/14/17 20:10: Urine Opiates Screen Negative, Urine Methadone Screen Negative, Ur Barbiturates Screen Negative, Ur Phencyclidine Scrn Negative, Ur Amphetamines Screen Negative, U Benzodiazepines Scrn Negative, U Oth Cocaine Metabols Negative, U Cannabinoids Screen Positive H 03/14/17 20:10: Urine Color Yellow, Urine Appearance Sl cloudy, Urine pH 6.0, Ur Specific [place] 1.020, Urine Protein Negative, Urine Glucose (UA) Negative, Urine Ketones Negative, Urine Blood Moderate H, Urine Nitrate Negative, Urine Bilirubin Negative, Urine Urobilinogen 0.2, Ur Leukocyte Esterase Negative, Urine RBC 25 - 30, Urine WBC 2 - 5, Ur Epithelial Cells 4 - 5, Urine Bacteria Few 03/14/17 19:00: Alcohol, Quantitative < 10 03/14/17 19:00: Salicylates < 1 L, Acetaminophen < 10.0 L 03/14/17 19:00: Sodium 138, Potassium 3.2 L, Chloride 98, Carbon Dioxide 30, Anion Gap 13, BUN 16, Creatinine 1.3, Est GFR ( Amer) > 60, Est GFR (Non- Af Amer) 57, Random Glucose 85, Calcium 9.2, Total Bilirubin 0.5, AST 13 L, ALT 19, Alkaline Phosphatase 51, Total Creatine Kinase 38, Total Protein 7.2, Albumin 4.1, Globulin 3.1, Albumin/Globulin Ratio 1.3 03/14/17 19:00: WBC 9.1, RBC 5.07, Hgb 16.0, Hct 45.2, MCV 89.2, MCH 31.6, MCHC 35.4, RDW 13.9, Plt Count 282, MPV 8.6, Gran % 62.3, Lymph % (Auto) 27.1, [place] % (Auto) 8.4 H, Eos % (Auto) 2.0, Baso % (Auto) 0.2, Gran # 5.69, Lymph # 2.5, [place] # 0.8 H, Eos # 0.2, Baso # 0.02 Vital Signs Temp Pulse Resp BP Pulse Ox 03/18/17 07:49 98.1 F 48 L 20 114/64 03/17/17 14:00 62 141/98 H 03/17/17 07:48 97.7 F 48 L 20 102/58 L 03/16/17 14:00 50 L 139/85 03/16/17 06:41 98.2 F 44 L 20 123/75 03/15/17 16:26 50 L 98/54 L 03/15/17 07:45 97.6 F 46 L 03/14/17 23:35 18 03/14/17 22:48 97.8 F 54 L 16 130/80 95 03/14/17 17:46 98.1 F 73 16 119/82 95 DSM 5 Symptoms Update: Patient is 61yo SWM with h/o depression and anxiety, h/o multiple admissions in the past (most recent was two months ago [facility] [place]), pt lives independently, has poor social support, currently on unemployment for trauma at work, multiple medical problems such as partial colon resection for his diverticulosis, h/o rheumatoid arthritis, was admitted for evaluation and stabilization of depressive symptoms , worsening of anxiety, inability to function and passive wishes as well as "nervous brake down". marginal personal hygiene, good ADLs, pt was seen in his room, self isolating, low profile. pt said that "I am not doing well", when was asked how is you mood "I don't know yet". pt obviously has concrete thought process pt reported to hear some noises, denied command type hallucinations. patient tolerates medications well, no side effects observed or reported, aims 0 , no EPS. Impression: DSM 5 Diagnosis: MDD (major depressive disorder), recurrent episode, severe MERCEDES (generalized anxiety disorder) Neurocognitive disorder cannabis abuse Medication Change: Yes (increased yesterday) Medical Record Reviewed: Yes (reports, labs, vitals, notes) Consults ordered or reviewed: medical consult appreciated Mental Status Examination - Cognitive Function Orientation: Person, Place, Situation Memory: Impaired Attention: WNL Concentration: Poor Association: Loose Fund of Knowledge: Poor - Mood Mood: Depressed ("depressed and paranoid but getting better with medications"), Anxious - Affect Affect: Flat - Formal Thought Process Formal Thought Process: Hallucinations (denies today), Paranoia - Suicidal Ideation Suicidal Ideation: No - Homicidal Ideation Homicidal Ideation: No Goal/Treatment Plan - Goal/Treatment Plan Need for Continued Stay: Remain at risks for inpatient hospitalization, Severe depression anxiety, Discharge may exacerbated symptoms, Severe functional impairment Progress Toward Problem(s) and Goals/Treatment Plan: milieu/structure/supportive therapy Gabapentin [Neurontin] 100 mg PO 3 times a day Trazodone HCl 50 mg PO HS for depression and insomnia prozac 20mg po daily for mdd and anxiety clonazePAM [Klonopin] 0.5 mg PO 1500 for anxiety Naproxen [Anaprox DS] 550 mg PO BID PRN Cyclobenzaprine [Flexeril] 5 mg PO DAILY hydrOXYzine Pamoate [Vistaril] 50 mg PO TID prn anxiety medical consult collaterals from ICMS will monitor closely Estimated Date of D/C: 03/22/17 (we'll monitor closely)
[2017-03-20] MEDS: Naproxen 550 mg Tab PO SCH ×2 (09:12→17:36)
--- NOTE | 2017-03-20 16:44 | PCM.PYCHPN ---
Psychiatric Progress Note - Psychiatric Progress Note Patient seen today, length of contact: 30min Patient Chief Complaint: "medication at the morning does not work, but afternoon meds seems to be working..." Problems Identified/Issues Discussed: Suicide/ homicide prevention, past psychiatric h/o, current psychiatric symptoms , medical problems, risk/benefits and alternatives of medications, medications compliance, coping strategies, substance abuse h/o, relapse prevention, importance of follow up with psychiatrist and therapist, discharge plan. Medical Problems: see HPI Diagnostic Results: 03/14/17 19:00 03/15/17 05:00 Lab Results 03/15/17 07:30: RPR Nonreactive 03/15/17 07:30: TSH 3rd Generation 4.29 03/15/17 05:00: Sodium 137, Potassium 3.8, Chloride 101, Carbon Dioxide 30, Anion Gap 10, BUN 16, Creatinine 1.1, Est GFR ( Amer) > 60, Est GFR (Non- Af Amer) > 60, Random Glucose 82, Fasting Glucose 82, Calcium 9.1, Total Bilirubin 0.5, AST 13 L, ALT 24, Alkaline Phosphatase 42, Total Protein 6.6, Albumin 3.9, Globulin 2.7, Albumin/Globulin Ratio 1.4, Triglycerides 257 H, Cholesterol 137, LDL Cholesterol Direct 83, HDL Cholesterol 25 L 03/14/17 20:10: Urine Opiates Screen Negative, Urine Methadone Screen Negative, Ur Barbiturates Screen Negative, Ur Phencyclidine Scrn Negative, Ur Amphetamines Screen Negative, U Benzodiazepines Scrn Negative, U Oth Cocaine Metabols Negative, U Cannabinoids Screen Positive H 03/14/17 20:10: Urine Color Yellow, Urine Appearance Sl cloudy, Urine pH 6.0, Ur Specific [place] 1.020, Urine Protein Negative, Urine Glucose (UA) Negative, Urine Ketones Negative, Urine Blood Moderate H, Urine Nitrate Negative, Urine Bilirubin Negative, Urine Urobilinogen 0.2, Ur Leukocyte Esterase Negative, Urine RBC 25 - 30, Urine WBC 2 - 5, Ur Epithelial Cells 4 - 5, Urine Bacteria Few 03/14/17 19:00: Alcohol, Quantitative < 10 03/14/17 19:00: Salicylates < 1 L, Acetaminophen < 10.0 L 03/14/17 19:00: Sodium 138, Potassium 3.2 L, Chloride 98, Carbon Dioxide 30, Anion Gap 13, BUN 16, Creatinine 1.3, Est GFR ( Amer) > 60, Est GFR (Non- Af Amer) 57, Random Glucose 85, Calcium 9.2, Total Bilirubin 0.5, AST 13 L, ALT 19, Alkaline Phosphatase 51, Total Creatine Kinase 38, Total Protein 7.2, Albumin 4.1, Globulin 3.1, Albumin/Globulin Ratio 1.3 03/14/17 19:00: WBC 9.1, RBC 5.07, Hgb 16.0, Hct 45.2, MCV 89.2, MCH 31.6, MCHC 35.4, RDW 13.9, Plt Count 282, MPV 8.6, Gran % 62.3, Lymph % (Auto) 27.1, [place] % (Auto) 8.4 H, Eos % (Auto) 2.0, Baso % (Auto) 0.2, Gran # 5.69, Lymph # 2.5, [place] # 0.8 H, Eos # 0.2, Baso # 0.02 Vital Signs Temp Pulse Resp BP Pulse Ox 03/18/17 07:49 98.1 F 48 L 20 114/64 03/17/17 14:00 62 141/98 H 03/17/17 07:48 97.7 F 48 L 20 102/58 L 03/16/17 14:00 50 L 139/85 03/16/17 06:41 98.2 F 44 L 20 123/75 03/15/17 16:26 50 L 98/54 L 03/15/17 07:45 97.6 F 46 L 03/14/17 23:35 18 03/14/17 22:48 97.8 F 54 L 16 130/80 95 03/14/17 17:46 98.1 F 73 16 119/82 95 Temp Pulse Resp BP Pulse Ox 98.3 F 58 L 20 143/93 H 95 03/20/17 07:36 03/20/17 15:55 03/20/17 07:36 03/20/17 15:55 03/14/17 22:48 DSM 5 Symptoms Update: Patient is 61yo SWM with h/o depression and anxiety, h/o multiple admissions in the past (most recent was two months ago [facility] [place] pt lives independently, has poor social support, currently on unemployment for trauma at work, multiple medical problems such as partial colon resection for his diverticulosis, h/o rheumatoid arthritis, was admitted for evaluation and stabilization of depressive symptoms , worsening of anxiety, inability to function and passive wishes as well as "nervous brake down". marginal personal hygiene, good ADLs, pt was seen at the tx team room, self isolating, low profile. pt said that "I am not doing well, I am thinking about the , solano, solano, solano", affect was mood incongruent. pt obviously has concrete thought process pt reported to hear some noises, denied command type hallucinations. patient tolerates medications well, no side effects observed or reported, aims 0 , no EPS. Impression: DSM 5 Diagnosis: MDD (major depressive disorder), recurrent episode, severe MERCEDES (generalized anxiety disorder) Neurocognitive disorder cannabis abuse Medication Change: Yes (prozac increased, klonopin increased) Medical Record Reviewed: Yes (reports, labs, vitals, notes) Consults ordered or reviewed: medical consult appreciated Mental Status Examination - Cognitive Function Orientation: Person, Place, Situation Memory: Impaired Attention: WNL Concentration: Poor Association: Loose Fund of Knowledge: Poor - Mood Mood: Depressed ("depressed and paranoid but getting better with medications"), Anxious - Affect Affect: Flat - Formal Thought Process Formal Thought Process: Hallucinations (denies today), Paranoia - Suicidal Ideation Suicidal Ideation: No - Homicidal Ideation Homicidal Ideation: No Goal/Treatment Plan - Goal/Treatment Plan Need for Continued Stay: Remain at risks for inpatient hospitalization, Severe depression anxiety, Discharge may exacerbated symptoms, Severe functional impairment Progress Toward Problem(s) and Goals/Treatment Plan: milieu/structure/supportive therapy Gabapentin [Neurontin] 100 mg PO 3 times a day Trazodone HCl 50 mg PO HS for depression and insomnia prozac 30mg po daily for mdd and anxiety clonazePAM [Klonopin] 0.5 mg PO bid for anxiety Naproxen [Anaprox DS] 550 mg PO BID PRN Cyclobenzaprine [Flexeril] 5 mg PO DAILY hydrOXYzine Pamoate [Vistaril] 50 mg PO TID prn anxiety medical consult collaterals from ICMS will monitor closely Estimated Date of D/C: 03/22/17 (we'll monitor closely)
[2017-03-20] MEDS ORDERED: Magnesium Hydroxide Susp 30 ml UD PO PRN (21:18)
[2017-03-20] MEDS ORDERED: Alum-Mag Hydrox-Simethicone Susp (30 mL) PO PRN (21:18)
[2017-03-21] MEDS: Naproxen 550 mg Tab PO SCH ×2 (09:23→17:02)
--- NOTE | 2017-03-21 15:25 | PCM.PYCHPN ---
Psychiatric Progress Note - Psychiatric Progress Note Patient seen today, length of contact: 30min Patient Chief Complaint: "medication seems to be not working, you are the doctor, you need to find out why" Problems Identified/Issues Discussed: Suicide/ homicide prevention, past psychiatric h/o, current psychiatric symptoms , medical problems, risk/benefits and alternatives of medications, medications compliance, coping strategies, substance abuse h/o, relapse prevention, importance of follow up with psychiatrist and therapist, discharge plan. Medical Problems: see HPI Diagnostic Results: 03/14/17 19:00 03/15/17 05:00 Lab Results 03/15/17 07:30: RPR Nonreactive 03/15/17 07:30: TSH 3rd Generation 4.29 03/15/17 05:00: Sodium 137, Potassium 3.8, Chloride 101, Carbon Dioxide 30, Anion Gap 10, BUN 16, Creatinine 1.1, Est GFR ( Amer) > 60, Est GFR (Non- Af Amer) > 60, Random Glucose 82, Fasting Glucose 82, Calcium 9.1, Total Bilirubin 0.5, AST 13 L, ALT 24, Alkaline Phosphatase 42, Total Protein 6.6, Albumin 3.9, Globulin 2.7, Albumin/Globulin Ratio 1.4, Triglycerides 257 H, Cholesterol 137, LDL Cholesterol Direct 83, HDL Cholesterol 25 L 03/14/17 20:10: Urine Opiates Screen Negative, Urine Methadone Screen Negative, Ur Barbiturates Screen Negative, Ur Phencyclidine Scrn Negative, Ur Amphetamines Screen Negative, U Benzodiazepines Scrn Negative, U Oth Cocaine Metabols Negative, U Cannabinoids Screen Positive H 03/14/17 20:10: Urine Color Yellow, Urine Appearance Sl cloudy, Urine pH 6.0, Ur Specific [place] 1.020, Urine Protein Negative, Urine Glucose (UA) Negative, Urine Ketones Negative, Urine Blood Moderate H, Urine Nitrate Negative, Urine Bilirubin Negative, Urine Urobilinogen 0.2, Ur Leukocyte Esterase Negative, Urine RBC 25 - 30, Urine WBC 2 - 5, Ur Epithelial Cells 4 - 5, Urine Bacteria Few 03/14/17 19:00: Alcohol, Quantitative < 10 03/14/17 19:00: Salicylates < 1 L, Acetaminophen < 10.0 L 03/14/17 19:00: Sodium 138, Potassium 3.2 L, Chloride 98, Carbon Dioxide 30, Anion Gap 13, BUN 16, Creatinine 1.3, Est GFR ( Amer) > 60, Est GFR (Non- Af Amer) 57, Random Glucose 85, Calcium 9.2, Total Bilirubin 0.5, AST 13 L, ALT 19, Alkaline Phosphatase 51, Total Creatine Kinase 38, Total Protein 7.2, Albumin 4.1, Globulin 3.1, Albumin/Globulin Ratio 1.3 03/14/17 19:00: WBC 9.1, RBC 5.07, Hgb 16.0, Hct 45.2, MCV 89.2, MCH 31.6, MCHC 35.4, RDW 13.9, Plt Count 282, MPV 8.6, Gran % 62.3, Lymph % (Auto) 27.1, [place] % (Auto) 8.4 H, Eos % (Auto) 2.0, Baso % (Auto) 0.2, Gran # 5.69, Lymph # 2.5, [place] # 0.8 H, Eos # 0.2, Baso # 0.02 Vital Signs Temp Pulse Resp BP Pulse Ox 03/18/17 07:49 98.1 F 48 L 20 114/64 03/17/17 14:00 62 141/98 H 03/17/17 07:48 97.7 F 48 L 20 102/58 L 03/16/17 14:00 50 L 139/85 03/16/17 06:41 98.2 F 44 L 20 123/75 03/15/17 16:26 50 L 98/54 L 03/15/17 07:45 97.6 F 46 L 03/14/17 23:35 18 03/14/17 22:48 97.8 F 54 L 16 130/80 95 03/14/17 17:46 98.1 F 73 16 119/82 95 Temp Pulse Resp BP Pulse Ox 98.3 F 58 L 20 143/93 H 95 03/20/17 07:36 03/20/17 15:55 03/20/17 07:36 03/20/17 15:55 03/14/17 22:48 Temp Pulse Resp BP Pulse Ox 97.1 F L 44 L 20 116/62 95 03/21/17 07:51 03/21/17 07:51 03/21/17 07:51 03/21/17 07:51 03/14/17 22:48 DSM 5 Symptoms Update: Patient is 61yo SWM with h/o depression and anxiety, h/o multiple admissions in the past (most recent was two months ago [facility] [place] [place] pt lives independently, has poor social support, currently on unemployment for trauma at work, multiple medical problems such as partial colon resection for his diverticulosis, h/o rheumatoid arthritis, was admitted for evaluation and stabilization of depressive symptoms , worsening of anxiety, inability to function and passive wishes as well as "nervous brake down". marginal personal hygiene, good ADLs, pt was seen at his room, self isolating, low profile. pt said that "I don't know how I feel, we will see", pt has low IQ, difficulties to express himself. pt obviously has concrete thought process pt reported to hear some noises, denied command type hallucinations. patient tolerates medications well, no side effects observed or reported, aims 0 , no EPS. Impression: DSM 5 Diagnosis: MDD (major depressive disorder), recurrent episode, severe MERCEDES (generalized anxiety disorder) Neurocognitive disorder cannabis abuse Medication Change: Yes (prozac increased) Medical Record Reviewed: Yes (reports, labs, vitals, notes) Consults ordered or reviewed: medical consult appreciated Mental Status Examination - Cognitive Function Orientation: Person, Place, Situation Memory: Impaired Attention: WNL Concentration: Poor Association: Loose Fund of Knowledge: Poor - Mood Mood: Depressed ("depressed and paranoid but getting better with medications"), Anxious - Affect Affect: Flat - Formal Thought Process Formal Thought Process: Hallucinations (denies today), Paranoia - Suicidal Ideation Suicidal Ideation: No - Homicidal Ideation Homicidal Ideation: No Goal/Treatment Plan - Goal/Treatment Plan Need for Continued Stay: Remain at risks for inpatient hospitalization, Severe depression anxiety, Discharge may exacerbated symptoms, Severe functional impairment Progress Toward Problem(s) and Goals/Treatment Plan: milieu/structure/supportive therapy Gabapentin [Neurontin] 100 mg PO 3 times a day Trazodone HCl 50 mg PO HS for depression and insomnia prozac 40mg po daily for mdd and anxiety clonazePAM [Klonopin] 0.5 mg PO bid for anxiety Naproxen [Anaprox DS] 550 mg PO BID PRN Cyclobenzaprine [Flexeril] 5 mg PO DAILY hydrOXYzine Pamoate [Vistaril] 50 mg PO TID prn anxiety medical consult collaterals from ICMS will monitor closely Estimated Date of D/C: 03/25/17 (we'll monitor closely)
[2017-03-22] MEDS: Naproxen 550 mg Tab PO SCH ×2 (09:00→16:14)
--- NOTE | 2017-03-22 14:54 | PCM.BM ---
- Milieu Protocol Milieu Narrative: milieu/structure/supportive therapy Gabapentin [Neurontin] 100 mg PO 3 times a day Trazodone HCl 50 mg PO HS for depression and insomnia prozac 40mg po daily for mdd and anxiety clonazePAM [Klonopin] 0.5 mg PO bid for anxiety Naproxen [Anaprox DS] 550 mg PO BID PRN Cyclobenzaprine [Flexeril] 5 mg PO DAILY hydrOXYzine Pamoate [Vistaril] 50 mg PO TID prn anxiety medical consult collaterals from ICMS will monitor closely Discharge/Continuing Care - Additional Comments milieu/structure/supportive therapy Gabapentin [Neurontin] 100 mg PO 3 times a day Trazodone HCl 50 mg PO HS for depression and insomnia prozac 40mg po daily for mdd and anxiety clonazePAM [Klonopin] 0.5 mg PO bid for anxiety Naproxen [Anaprox DS] 550 mg PO BID PRN Cyclobenzaprine [Flexeril] 5 mg PO DAILY hydrOXYzine Pamoate [Vistaril] 50 mg PO TID prn anxiety medical consult collaterals from ICMS will monitor closely - Treatment Team Participation Patient/Family/SO Statement: milieu/structure/supportive therapy Gabapentin [Neurontin] 100 mg PO 3 times a day Trazodone HCl 50 mg PO HS for depression and insomnia prozac 40mg po daily for mdd and anxiety clonazePAM [Klonopin] 0.5 mg PO bid for anxiety Naproxen [Anaprox DS] 550 mg PO BID PRN Cyclobenzaprine [Flexeril] 5 mg PO DAILY hydrOXYzine Pamoate [Vistaril] 50 mg PO TID prn anxiety medical consult collaterals from ICMS will monitor closely
--- NOTE | 2017-03-22 17:18 | PCM.PYCHPN ---
Psychiatric Progress Note - Psychiatric Progress Note Patient seen today, length of contact: 30min Patient Chief Complaint: "I am paranoid, I'm scared of outside world, I am fine with insight world..." Problems Identified/Issues Discussed: Suicide/ homicide prevention, past psychiatric h/o, current psychiatric symptoms , medical problems, risk/benefits and alternatives of medications, medications compliance, coping strategies, substance abuse h/o, relapse prevention, importance of follow up with psychiatrist and therapist, discharge plan. Medical Problems: see HPI Diagnostic Results: 03/14/17 19:00 03/15/17 05:00 Lab Results 03/15/17 07:30: RPR Nonreactive 03/15/17 07:30: TSH 3rd Generation 4.29 03/15/17 05:00: Sodium 137, Potassium 3.8, Chloride 101, Carbon Dioxide 30, Anion Gap 10, BUN 16, Creatinine 1.1, Est GFR ( Amer) > 60, Est GFR (Non- Af Amer) > 60, Random Glucose 82, Fasting Glucose 82, Calcium 9.1, Total Bilirubin 0.5, AST 13 L, ALT 24, Alkaline Phosphatase 42, Total Protein 6.6, Albumin 3.9, Globulin 2.7, Albumin/Globulin Ratio 1.4, Triglycerides 257 H, Cholesterol 137, LDL Cholesterol Direct 83, HDL Cholesterol 25 L 03/14/17 20:10: Urine Opiates Screen Negative, Urine Methadone Screen Negative, Ur Barbiturates Screen Negative, Ur Phencyclidine Scrn Negative, Ur Amphetamines Screen Negative, U Benzodiazepines Scrn Negative, U Oth Cocaine Metabols Negative, U Cannabinoids Screen Positive H 03/14/17 20:10: Urine Color Yellow, Urine Appearance Sl cloudy, Urine pH 6.0, Ur Specific [place] 1.020, Urine Protein Negative, Urine Glucose (UA) Negative, Urine Ketones Negative, Urine Blood Moderate H, Urine Nitrate Negative, Urine Bilirubin Negative, Urine Urobilinogen 0.2, Ur Leukocyte Esterase Negative, Urine RBC 25 - 30, Urine WBC 2 - 5, Ur Epithelial Cells 4 - 5, Urine Bacteria Few 03/14/17 19:00: Alcohol, Quantitative < 10 03/14/17 19:00: Salicylates < 1 L, Acetaminophen < 10.0 L 03/14/17 19:00: Sodium 138, Potassium 3.2 L, Chloride 98, Carbon Dioxide 30, Anion Gap 13, BUN 16, Creatinine 1.3, Est GFR ( Amer) > 60, Est GFR (Non- Af Amer) 57, Random Glucose 85, Calcium 9.2, Total Bilirubin 0.5, AST 13 L, ALT 19, Alkaline Phosphatase 51, Total Creatine Kinase 38, Total Protein 7.2, Albumin 4.1, Globulin 3.1, Albumin/Globulin Ratio 1.3 03/14/17 19:00: WBC 9.1, RBC 5.07, Hgb 16.0, Hct 45.2, MCV 89.2, MCH 31.6, MCHC 35.4, RDW 13.9, Plt Count 282, MPV 8.6, Gran % 62.3, Lymph % (Auto) 27.1, [place] % (Auto) 8.4 H, Eos % (Auto) 2.0, Baso % (Auto) 0.2, Gran # 5.69, Lymph # 2.5, [place] # 0.8 H, Eos # 0.2, Baso # 0.02 Vital Signs Temp Pulse Resp BP Pulse Ox 03/18/17 07:49 98.1 F 48 L 20 114/64 03/17/17 14:00 62 141/98 H 03/17/17 07:48 97.7 F 48 L 20 102/58 L 03/16/17 14:00 50 L 139/85 03/16/17 06:41 98.2 F 44 L 20 123/75 03/15/17 16:26 50 L 98/54 L 03/15/17 07:45 97.6 F 46 L 03/14/17 23:35 18 03/14/17 22:48 97.8 F 54 L 16 130/80 95 03/14/17 17:46 98.1 F 73 16 119/82 95 Temp Pulse Resp BP Pulse Ox 98.3 F 58 L 20 143/93 H 95 03/20/17 07:36 03/20/17 15:55 03/20/17 07:36 03/20/17 15:55 03/14/17 22:48 Temp Pulse Resp BP Pulse Ox 97.1 F L 44 L 20 116/62 95 03/21/17 07:51 03/21/17 07:51 03/21/17 07:51 03/21/17 07:51 03/14/17 22:48 DSM 5 Symptoms Update: Patient is 61yo SWM with h/o depression and anxiety, h/o multiple admissions in the past (most recent was two months ago [facility] [place]), pt lives independently, has poor social support, currently on unemployment for trauma at work, multiple medical problems such as partial colon resection for his diverticulosis, h/o rheumatoid arthritis, was admitted for evaluation and stabilization of depressive symptoms , worsening of anxiety, inability to function and passive wishes as well as "nervous brake down". marginal personal hygiene, good ADLs, pt was seen at the tx team meeting, pt said that "I am paranoid, I am scared of outside world, I am fine with inside world", pt said that "I don't know how I feel, we will see", pt has low IQ, difficulties to express himself, when was asked if medication is helping him pt said "you are a doctor, you need to find out", pt said that he feels better, but before the d/c on monady, pt wants to "make sure that I am okay" . pt obviously has concrete thought process, low IQ or borderline intellectual functioning. pt denied hallucinations today. patient tolerates medications well, no side effects observed or reported, aims 0 , no EPS. Impression: DSM 5 Diagnosis: MDD (major depressive disorder), recurrent episode, severe MERCEDES (generalized anxiety disorder) Neurocognitive disorder cannabis abuse Medication Change: Yes (prozac increased yesterday) Medical Record Reviewed: Yes (reports, labs, vitals, notes) Consults ordered or reviewed: medical consult appreciated Mental Status Examination - Cognitive Function Orientation: Person, Place, Situation Memory: Impaired Attention: WNL Concentration: Poor Association: Loose Fund of Knowledge: Poor - Mood Mood: Depressed ("depressed and paranoid but getting better with medications"), Anxious - Affect Affect: Flat - Formal Thought Process Formal Thought Process: Hallucinations (denies today), Paranoia - Suicidal Ideation Suicidal Ideation: No - Homicidal Ideation Homicidal Ideation: No Goal/Treatment Plan - Goal/Treatment Plan Need for Continued Stay: Remain at risks for inpatient hospitalization, Severe depression anxiety, Discharge may exacerbated symptoms, Severe functional impairment Progress Toward Problem(s) and Goals/Treatment Plan: milieu/structure/supportive therapy Gabapentin [Neurontin] 100 mg PO 3 times a day Trazodone HCl 50 mg PO HS for depression and insomnia prozac 40mg po daily for mdd and anxiety clonazePAM [Klonopin] 0.5 mg PO bid for anxiety Naproxen [Anaprox DS] 550 mg PO BID PRN Cyclobenzaprine [Flexeril] 5 mg PO DAILY hydrOXYzine Pamoate [Vistaril] 50 mg PO TID prn anxiety medical consult collaterals from ICMS will monitor closely Estimated Date of D/C: 03/25/17 (we'll monitor closely)
--- NOTE | 2017-03-23 09:10 | PCM.PYCHPN ---
Psychiatric Progress Note - Psychiatric Progress Note Patient seen today, length of contact: 25 min Patient Chief Complaint: "better with the medications Problems Identified/Issues Discussed: I reviewed recent notes and met with patient at bedside. Grooming appears a little unkempt. He is fairly cooperative with my questioning this morning. Oriented x3. Indicates that he is feeling a little bit better "with the medications" and denies any new complaints. Endorses paranoia however this is chronic and unchanged. Patient denies having any hallucinations and does not appear to be responding to internal stimuli. Affect is flat and preoccupied. Denies wishes or suicidal thoughts. . Staff notes indicate the patient has been calm, quiet and cooperative on the unit thus far. Has been visible but not social. Med seeking and has missed groups. There were no behavioral issues overnight. Diagnostic Results: MDD (major depressive disorder), recurrent episode, severe MERCEDES (generalized anxiety disorder) Neurocognitive disorder cannabis abuse Medication Change: No ( ) Medical Record Reviewed: Yes (reports, labs, vitals, notes) Mental Status Examination - Cognitive Function Orientation: Person, Place, Situation Memory: Impaired Attention: WNL Concentration: Poor Association: Loose Fund of Knowledge: Poor - Mood Mood: Depressed ("depressed and paranoid but getting better with medications"), Anxious - Affect Affect: Flat - Formal Thought Process Formal Thought Process: Hallucinations (denies today), Paranoia - Suicidal Ideation Suicidal Ideation: No - Homicidal Ideation Homicidal Ideation: No Goal/Treatment Plan - Goal/Treatment Plan Need for Continued Stay: Remain at risks for inpatient hospitalization, Severe depression anxiety, Discharge may exacerbated symptoms, Severe functional impairment Progress Toward Problem(s) and Goals/Treatment Plan: * c/w current tx and plan * No new weekend labs * Vitals reviewed and noted below: Selected Entries 03/22/17 03/22/17 07:33 16:15 Temperature 98.1 F Pulse Rate 50 L 54 L Respiratory 20 Rate Blood Pressure 104/64 138/90 Estimated Date of D/C: 03/25/17 (we'll monitor closely)
[2017-03-23] MEDS: Naproxen 550 mg Tab PO SCH ×2 (10:02→16:48)
[2017-03-23 10:04] VITALS: TEMP 97.7
--- NOTE | 2017-03-24 08:44 | PCM.PYCHPN ---
Psychiatric Progress Note - Psychiatric Progress Note Patient seen today, length of contact: 25 min Patient Chief Complaint: "better with the medications Problems Identified/Issues Discussed: I reviewed recent notes and met with patient at bedside. Grooming still appears unkempt. He remains fairly cooperative with my questioning this morning though not entirely engaged. Oriented x3. Indicates that he is feeling a little bit better "with the medications" and denies any new concerns. Endorses paranoia however this is chronic and unchanged. Patient again denies having any hallucinations and does not appear to be responding to internal stimuli. Affect is flat and preoccupied. Denies wishes or suicidal thoughts. Staff notes indicate the patient has been calm, quiet and cooperative on the unit thus far. Has been visible but not social despite their encouragement to interact with peers. Med seeking and has missed groups. There were no behavioral issues overnight. Diagnostic Results: MDD (major depressive disorder), recurrent episode, severe MERCEDES (generalized anxiety disorder) Neurocognitive disorder cannabis abuse Medication Change: No ( ) Medical Record Reviewed: Yes (reports, labs, vitals, notes) Mental Status Examination - Cognitive Function Orientation: Person, Place, Situation Memory: Impaired Attention: WNL Concentration: Poor Association: Loose Fund of Knowledge: Poor - Mood Mood: Depressed ("depressed and paranoid but getting better with medications"), Anxious - Affect Affect: Flat - Formal Thought Process Formal Thought Process: Hallucinations (denied all weekend), Paranoia - Suicidal Ideation Suicidal Ideation: No - Homicidal Ideation Homicidal Ideation: No Goal/Treatment Plan - Goal/Treatment Plan Need for Continued Stay: Remain at risks for inpatient hospitalization, Severe depression anxiety, Discharge may exacerbated symptoms, Severe functional impairment Progress Toward Problem(s) and Goals/Treatment Plan: * c/w current tx and plan * No new weekend labs * Vitals reviewed and noted below: Selected Entries 03/23/17 03/23/17 07:00 17:00 Temperature 97.7 F Pulse Rate 45 L 49 L Respiratory 16 Rate Blood Pressure 96/49 L 122/77 Estimated Date of D/C: 03/25/17 (we'll monitor closely)
[2017-03-24] MEDS: Naproxen 550 mg Tab PO SCH ×2 (10:43→18:20)
[2017-03-24 16:19] VITALS: RESP 22
[2017-03-24 16:22] VITALS: BP 108/64; PULSE 47
[2017-03-25] MEDS: Naproxen 550 mg Tab PO SCH (09:19)
--- NOTE | 2017-03-26 01:26 | PN ---
DATE: 03/25/2017 The patient is a 61-year-old single white male, well-known to me, who was initially admitted with anx iety and depression. I am covering for Dr. Mcneil. Chart reviewed and case discussed with nursing. The patient, who lives independently, has poor social support and is unemployed. He has had a partial colon resection in the past for diverticulosis and has a history of rheumatoid a rthritis. The patient was having passive wishes on admission. Presently is alert, oriented, seems to be dependent, needy, lacks insight. suicidal. He is being maintained on Anaprox 550 mg b.i.d., trazodone 50 mg at bedtime, Flexeril 5 mg q. day, Kl onopin 0.5 mg t.i.d., Neurontin 100 mg t.i.d., Prozac 40 mg q. day, Seroquel 150 mg at bedtime. Blood pressure 108/64, pulse low at 47, temperature 97.7, respiratory rate 22. The patient reportedly also uses cannabis. As noted, his insight and judgment are considered to be marginal. Cash Rojas MD, PhD cc: [id number] TT: 03/26/2017 01:25:42 Confirmation # [id number] Dictation # [id number]
== END 2017-03-25 17:13 | disposition home or self-care (01) | DRG 430 ==
LOC: ED 17:30 → ERH 21:20 → PSYC 23:56 → ERH 03-16 06:25 → PSYC 03-16 06:26
PROVIDERS: ADMIT Psychiatry & Neurology Psychiatry; ATTEND Psychiatry & Neurology Psychiatry
PROC: GZ3ZZZZ Medication Management (ICD-10-PCS; principal; 2017-03-14)
DX: F33.2 Major depressive disorder, recurrent severe without psychotic features (principal); F41.1 Generalized anxiety disorder; R41.83 Borderline intellectual functioning; F22 Delusional disorders; K57.92 Diverticulitis of intestine, part unspecified, without perforation or abscess without bleeding; I10 Essential (primary) hypertension; F12.10 Cannabis abuse, uncomplicated; J30.2 Other seasonal allergic rhinitis; J45.909 Unspecified asthma, uncomplicated; R31.29 Other microscopic hematuria; M54.9 Dorsalgia, unspecified; G47.00 Insomnia, unspecified; M06.9 Rheumatoid arthritis, unspecified; F17.290 Nicotine dependence, other tobacco product, uncomplicated; Z90.49 Acquired absence of other specified parts of digestive tract

== ENCOUNTER 2017-04-30 09:10 | Inpatient (IN) | payer MEDICAID, OTHER ==
[2017-04-30 09:10] VITALS: BMI 25.0
--- NOTE | 2017-04-30 09:39 | ED PDOC ---
Arrival/HPI - General Chief Complaint: Psychiatric Evaluation Time Seen by Provider: 04/30/17 09:37 Historian: Patient - History of Present Illness Narrative History of Present Illness (Text): 04/30/17 09:35 A 61 year old male whose past medical history includes depression, presents to the emergency department for suicidal ideation without a plan. The patient states that he feels anxious and paranoid. The patient notes that he feels like he is having a nervous breakdown. He denies homicidal ideation, hallucinations, headache, fever, chills, nausea, vomiting, diarrhea, or any other complaints. Time/Duration: Prior to Arrival Symptom Course: Unchanged Activities at Onset: Rest, Light Context: Home Past Medical History - Provider Review Nursing Documentation Reviewed: Yes - Past History Past History: Non-Contributing - Infectious Disease Hx of Infectious Diseases: None - Tetanus Immunization Tetanus Immunization: Unknown - Reproductive Currently : No - Past Medical History Past Medical History: No Previous - Cardiac Hx Cardiac Disorders: Yes Hx Hypertension: Yes Hx Pacemaker: No - Pulmonary Hx Respiratory Disorders: No Hx Tuberculosis: No - Neurological Hx Neurological Disorder: No Hx Paralysis: No - HEENT Hx HEENT Disorder: No - Renal Hx Renal Disorder: No - Endocrine/Metabolic Hx Endocrine Disorders: No - Hematological/Oncological Hx Blood Disorders: No Hx Blood Transfusions: No Hx Blood Transfusion Reaction: No - Integumentary Hx Dermatological Disorder: No Hx Basal Cell Carcinoma: No Hx Knowles: No Hx Cellulitis: No Hx Eczema: No Hx Melanoma: No Hx Psoriasis: No Hx Squamous Cell Carcinoma: No - Musculoskeletal/Rheumatological Hx Musculoskeletal Disorders: Yes - Gastrointestinal Hx Gastrointestinal Disorders: Yes Hx Bowel Surgery: Yes Hx Colitis: Yes Hx Colostomy: Yes Other/Comment: intestinal cyst historycolostomy - Genitourinary/Gynecological Hx Genitourinary Disorders: No Hx Sexually Transmitted Diseases: No - Psychiatric Hx Psychophysiologic Disorder: Yes Hx Anxiety: Yes Hx Bipolar Disorder: Yes Hx Depression: Yes Hx Emotional Abuse: No Hx Physical Abuse: No Hx Sexual Abuse: No Hx Substance Use: No (denies) - Surgical History Hx Orthopedic Surgery: Yes Other/Comment: Abdominal - colon resection - Anesthesia Hx Anesthesia: Yes Hx Anesthesia Reactions: No Hx Malignant Hyperthermia: No - Suicidal Assessment Feels Threatened In Home Enviroment: No Family/Social History - Physician Review Nursing Documentation Reviewed: Yes Family/Social History: No Known Family HX Smoking Status: Smoker Currrent Status Unknown Hx Alcohol Use: No (denies) Hx Substance Use: No (denies) Hx Substance Use Treatment: No Allergies/Home Meds Allergies/Adverse Reactions: Allergies No Known Allergies Allergy (Verified 04/30/17 09:16) Home Medications: Home Meds Medication Instructions Recorded Confirmed Cyclobenzaprine [Flexeril] 5 mg PO DAILY PRN 04/30/17 04/30/17 Gabapentin [Neurontin] 100 mg PO BID 04/30/17 04/30/17 Physical Exam - Physical Exam Narrative Physical Exam (Text): - Review of Systems Constitutional: Normal. absent: Fatigue, Weight Change, Fevers Eyes: Normal ENT: Normal Respiratory: Normal absent: SOB, Cough, Sputum Cardiovascular: Normal absent: Chest pain, Palpitations, Syncope Gastrointestinal: Normal absent: Abdominal pain, Diarrhea, Nausea, Vomiting Genitourinary: Normal. absent: Dysuria, Frequency, Hematuria Musculoskeletal: Normal. absent: Arthralgias, Back Pain, Neck Pain Skin: Normal Neurological: Normal absent: Focal Weakness Endocrine: Normal Hemo/Lymphatic: Normal Psychiatric: (+) Suicidal ideation. absent: homicidal ideation - Physical exam Patient appears age appropriate, speaking full sentences without difficulty - Systems Exam Head: Present: Atraumatic, Normocephalic Pupils: Present: PERRL Extraocular Muscles: Present: EOMI Conjunctiva: Present: Normal Mouth: Present: Moist Mucous Membranes Neck: Present: Normal Range of Motion. No: MIDLINE TENDERNESS, Paraspinal Tenderness Respiratory/Chest: Present: Clear to Auscultation, Good Air Exchange. No: Respiratory Distress, Accessory Muscle Use, Tachypnic Cardiovascular: Present: Regular Rate and Rhythm, Normal S1, S2, Peripheral Pulses Present. No: Murmurs Abdomen: Present: Normal Bowel Sounds, No: Tenderness, Peritoneal Signs, Rebound, Guarding, Distention Back: Present: Normal Inspection. No: Midline Tenderness, Paraspinal Tenderness Upper Extremity: Present: Normal Inspection. No: Cyanosis, Edema Lower Extremity: Present: Normal Inspection. No: Edema Neurological: Present: GCS=15, Speech Normal, cranial nerves II through XII fully intact with no cerebellar abnormality, neuro-sensory fully intact. No focal neurological deficits. Skin: Present: Warm, Dry, Normal Color. No: Rashes Lymphatic: Present: OX3, NI, NC Psychiatric: Present: Alert, Oriented x 3, Normal Insight, Normal Concentration. Suicidal Ideation. No: Homicidal ideation. Vital Signs Temp Pulse Resp BP Pulse Ox 04/30/17 09:12 98.5 F 89 16 108/82 96 Temperature: Afebrile Blood Pressure: Normal Pulse: Regular Respiratory Rate: Normal Medical Decision Making ED Course and Treatment: 04/30/17 09:47 Impression: A 60 year old male with suicidal ideation. On exam, no significant finding and denies homicidal ideation. Plan: -- Urinalysis -- Labs -- Reassess and disposition Progress Notes: 04/30/17 09:52 EKG: Ordered, reviewed, and independently interpreted the EKG. Rate : 76 BPM Rhythm : NSR Interpretation : No ST-segment elevations. RBBB. Interpreted by me. Comparison : No previous EKG for comparison. 04/30/17 11:28: Discussed case with Miriam from [facility]. Patient will be admitted to Dr. Mcneil's service for major depressive disorder. The patient is aware of and agrees with plan. - Lab Interpretations Lab Results: 04/30/17 09:40 04/30/17 09:40 Lab Results 04/30/17 09:40: Alcohol, Quantitative < 10 04/30/17 09:40: Salicylates < 1 L, Acetaminophen < 10.0 L 04/30/17 09:40: Sodium 140, Potassium 3.7, Chloride 97, Carbon Dioxide 27, Anion Gap 20, BUN 17, Creatinine 1.4, Est GFR ( Amer) > 60, Est GFR (Non- Af Amer) 52, Random Glucose 118 H, Calcium 10.0, Total Bilirubin 0.6, AST 14 L, ALT 21, Alkaline Phosphatase 66, Total Protein 8.1, Albumin 5.0 H, Globulin 3.1 , Albumin/Globulin Ratio 1.6 04/30/17 09:40: WBC 10.7, RBC 5.66, Hgb 17.7, Hct 49.3, MCV 87.1, MCH 31.3, MCHC 35.9, RDW 13.6, Plt Count 221, MPV 9.2, Gran % 75.7 H, Lymph % (Auto) 17.4 L, [place] % (Auto) 6.0, Eos % (Auto) 0.8 L, Baso % (Auto) 0.1, Gran # 8.07 H, Lymph # 1.9, [place] # 0.6, Eos # 0.1, Baso # 0.01 I have reviewed the lab results: Yes - EKG Interpretation Interpreted by ED Physician: Yes Type: 12 lead EKG - Scribe Statement The provider has reviewed the documentation as recorded by the Scribe Felicitas Boyd Provider Scribe Attestation: All medical record entries made by the Scribe were at my direction and personally dictated by me. I have reviewed the chart and agree that the record accurately reflects my personal performance of the history, physical exam, medical decision making, and the department course for this patient. I have also personally directed, reviewed, and agree with the discharge instructions and disposition. Disposition/Present on Arrival - Present on Arrival Any Indicators Present on Arrival: No History of DVT/PE: No History of Uncontrolled Diabetes: No Urinary Catheter: No History of Decub. Ulcer: No History Surgical Site Infection Following: None - Disposition Have Diagnosis and Disposition been Completed?: Yes Diagnosis: Major depression Disposition: HOSPITALIZED Disposition Time: 11:30 Patient Plan: Admission Condition: STABLE
[2017-04-30 09:58] LABS: BASO # 0.01 K/mm3 (0.0-2.0); BASO % 0.1 % (0.0-3.0); EOS # 0.1 (0.0-0.7); EOS % 0.8 % (1.5-5.0); GRAN # 8.07 (1.4-6.5); GRAN % 75.7 % (50.0-68.0); HEMOGLOBIN 17.7 gm/dL (14.0-18.0); LYMPH # 1.9 (1.2-3.4); LYMPH % 17.4 % (22.0-35.0); MEAN CELL VOLUME 87.1 fL (80.0-105.0); MEAN CORPUSCULAR HEMOGLOBIN 31.3 pg (25.0-35.0); MEAN CORPUSCULAR HGB CONC 35.9 g/dl (31.0-37.0); MEAN PLATELET VOLUME 9.2 fl (7.0-11.0); MONO # 0.6 (0.1-0.6); PLATELET COUNT 221 10^3/uL (120.0-450.0); RBC 5.66 10^6/uL (3.5-6.1); RED CELL DISTRIBUTION WIDTH 13.6 % (11.5-14.5); WHITE BLOOD COUNT 10.7 10^3/ul (4.5-11.0)
[2017-04-30 10:07] LABS: ALB/GLOB RATIO 1.6 (1.1-1.8); ALT/SGPT 21 U/L (7-56); AST/SGOT 14 U/L (15-59); BLOOD UREA NITROGEN 17 mg/dL (7-21); GFR AFRICAN-AMERICAN > 60; GFR NON-AFRICAN AMERICAN 52
[2017-04-30 10:20] LABS: SALICYLATE < 1 mg/dL (2.0-20.0)
[2017-04-30 10:21] LABS: ACETAMINOPHEN < 10.0 ug/ml (10.0-20.0)
[2017-04-30 13:16] LABS: BARBITURATES, UR NEGATIVE (NEGATIVE); BENZODIAZEPINES, UR NEGATIVE (NEGATIVE); OPIATES, UR NEGATIVE (NEGATIVE); PHENCYCLIDINE, UR NEGATIVE (NEGATIVE)
[2017-04-30 13:17] LABS: URINE BILIRUBIN NEGATIVE (NEGATIVE); URINE BLOOD MODERATE (NEGATIVE); URINE GLUCOSE (UA) NEGATIVE (NEGATIVE); URINE LEUKOCYTE ESTERASE NEGATIVE Leu/uL (NEGATIVE); URINE NITRATE NEGATIVE (NEGATIVE); URINE PROTEIN NEGATIVE mg/dL (<30 mg/dL); URINE UROBILINOGEN 0.2 E.U./dL (<1 E.U./dL)
[2017-04-30 13:26] LABS: URINE APPEARANCE SL CLOUDY (CLEAR); URINE COLOR YELLOW (YELLOW)
[2017-04-30 13:45] LABS: URINE RBC 0 - 2 /hpf (0-2); URINE WBC NEGATIVE /hpf (0-6)
[2017-04-30 14:22] VITALS: O2SAT 98
[2017-04-30] MEDS ORDERED: Magnesium Hydroxide Susp 30 ml UD PO PRN (15:48)
--- NOTE | 2017-04-30 18:40 | PCM.BM ---
<Maximiliano Xie - Last Filed: 04/30/17 18:37> Treatment Plan Problems - Problems identified on initial assessmt Hopelessness Date Initiated: 04/30/17 Time Initiated: 18:39 Assessment reference: NA Status: Active Priority: 1 Anxiety Date Initiated: 04/30/17 Time Initiated: 18:39 Assessment reference: NA Status: Active Priority: 2 Treatment assets and liabiliti Patient Assests: cooperative, ADL independent, physically healthy, negotiates basic needs Patient Liabilities: live alone, physical pain, financial problems - Milieu Protocol Maintain good personal hygiene: every shift Encourage regular showers, every shift Remind patient to perform daily oral care, every shift Assist patient to perform ADL's Maintain personal safety: every shift Educate patient to report safety concerns to staff, every shift Monitor environment for contraband/sharps Medication safety: Monitor for expected outcome, potential side effects: every shift, Assess barriers to learning: every shift, Assess readiness for medication education: every shift Family Contact - Goals for Treatment Patient goals for treatment: " I want to get better with all my psychological problems" <Sharifa Mcneil - Last Filed: 05/01/17 12:59> - Diagnosis (1) Cannabis abuse Status: Chronic Interventions: 05/01/17 13:00 Maintaining sobriety Relapse prevention Motivational interviewing (2) Neurocognitive disorder Status: Chronic Interventions: 05/01/17 13:00 Pt will be seen by medical team as needed Medications will be confirmed and resumed Additional consultation by specialists as needed Lab work as needed (CBC, CMP, TSH, free T4, UA, Urine test for females as needed) CXR as needed EKG Physical therapy valuation as needed (3) MERCEDES (generalized anxiety disorder) Status: Chronic Interventions: 05/01/17 13:01 Psychoeducation Psychopharmacology/adjustment of medications as needed/ monitoring possible side effects Evaluate pt on daily basis Compliance with medications and follow up appointments Suicide and homicide risk assessment and prevention, coping strategies, safety plan Reduction of symptoms Relaxation techniques and breathing exercises Improve functional status As outpatient: cognitive behavioral therapy (4) MDD (major depressive disorder), recurrent episode, severe Status: Chronic Interventions: 05/01/17 13:01 Psychoeducation Psychopharmacology/adjustment of medications as needed/ monitoring possible side effects Evaluate pt on daily basis Compliance with medications and follow up appointments Suicide and homicide risk assessment and prevention Relapse prevention Reduction of symptoms Improve functional status Family intervention As outpatient: cognitive behavioral therapy/interpersonal psychotherapy/ psychodynamic psychotherapy/problem-solving therapy Family Contact - Outside Agency [facility] [facility] Care involvment: Information-sharing Agency contact name: Ton Puckett Agency contact number: [phone] [facility] Care involvment: Not involved Agency contact name: [facility] Agency contact number: [phone] <Stephanie Fam - Last Filed: 05/01/17 15:53> Discharge/Continuing Care - Education Needs Education Needs: Patient Medication, Patient Diagnosis/Disease Process, Patient Coping Skills, Patient Placement options, Patient Community resources, Patient Health Practices/Safety - Discharge Discharge Criteria: Tolerates medication w/o severe side effects, Ability to care for self <Shasta Lucia - Last Filed: 05/02/17 08:38>
--- NOTE | 2017-05-01 08:10 | CARD ---
APPROVED REPORT EKG Measurement Heart [id number] OR [id number] <Conclusion> Normal sinus rhythm Incomplete right bundle branch block NSSTW changes
[2017-05-01] MEDS: Venlafaxine 75 mg ER Cap PO SCH (08:51)
[2017-05-01] MEDS: Naproxen 550 mg Tab PO SCH ×2 (08:51→16:36)
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
--- NOTE | 2017-05-01 14:31 | CP.PCM.CON ---
<Mirian Fink - Last Filed: 05/01/17 14:41> History of Present Illness - History of Present Illness History of Present Illness: 61 yo male with pmhx of HTN, anxiety/depression presents to [facility] for suicidal thoughts. Patient reports that his landlord is trying to kick him out of his apartment and wants to move a family in. Patient has been living there for 5 years and has no place to go if he gets kicked out. Patient is not currently working and is unable to pay his rent. Reports having a panic attack and "nervous breakdown" which prompted the visit to the hospital. Offers no complaints currently. Denies suicidal/homicidal ideations. Denies auditory/ visual hallucinations. Denies headaches, dizziness, changes in vision, CP, SOB, abdominal pain, urinary symptoms, changes in bowel habits. Allergies: NKDA Medications: Trazodone, Klonopin, Effexer-XR, Naproxen, Gabapentin, Fluoxetine, Flexeril Medical Hx: HTN, anxiety/depression, hx of Rheumatoid arthritis Surgical Hx: Hernia repair x 2, colon resection for diverticulitis Social Hx: Smokes 1ppd for past 50 years, occasionally smokes marijuana, denies hx of drug use; not currently employed, lives alone; admits to having one prior suicidal attempt years ago when he "took a lot of cocaine" Family Hx: Father was an alcoholic Review of Systems - Review of Systems All systems: reviewed and no additional remarkable complaints except - Constitutional Constitutional: absent: Chills, Fever, Weight Loss, Weakness - EENT Eyes: absent: Blurred Vision, Change in Vision Ears: absent: Decreased Hearing, Dizziness - Cardiovascular Cardiovascular: absent: Chest Pain, Diaphoresis, Dyspnea, Dyspnea on Exertion, Palpitations - Respiratory Respiratory: absent: Cough, Dyspnea, Wheezing - Gastrointestinal Gastrointestinal: absent: Abdominal Pain, Constipation, Diarrhea, Nausea, Vomiting - Genitourinary Genitourinary: absent: Difficulty Urinating, Dysuria, Urinary Frequency - Neurological Neurological: absent: Confusion, Dizziness, Numbness, Headaches, Weakness - Psychiatric Psychiatric: Anxiety, Depression. absent: Auditory Hallucinations, Confusion, Hallucinations, Homicidal Ideation, Suicidal Ideation, Visual Hallucinations Past Patient History - Infectious Disease Hx of Infectious Diseases: None - Tetanus Immunizations Tetanus Immunization: Unknown - Past Medical History & Family History Past Medical History?: Yes - Past Social History Smoking Status: Smoker Currrent Status Unknown - CARDIAC Hx Cardiac Disorders: Yes Hx Hypertension: Yes Hx Pacemaker: No - PULMONARY Hx Respiratory Disorders: No Hx Tuberculosis: No - NEUROLOGICAL Hx Neurological Disorder: No Hx Paralysis: No - HEENT Hx HEENT Problems: No - RENAL Hx Chronic Kidney Disease: No - ENDOCRINE/METABOLIC Hx Endocrine Disorders: No - HEMATOLOGICAL/ONCOLOGICAL Hx Blood Disorders: No Hx Blood Transfusions: No Hx Blood Transfusion Reaction: No - INTEGUMENTARY Hx Dermatological Problems: No - MUSCULOSKELETAL/RHEUMATOLOGICAL Hx Musculoskeletal Disorders: Yes - GASTROINTESTINAL Hx Gastrointestinal Disorders: Yes Hx Bowel Surgery: Yes Hx Colitis: Yes Hx Colostomy: Yes Other/Comment: intestinal cyst /colostomy - GENITOURINARY/GYNECOLOGICAL Hx Genitourinary Disorders: No Hx Sexually Transmitted Disorders: No - PSYCHIATRIC Hx Psychophysiologic Disorder: Yes Hx Anxiety: Yes Hx Bipolar Disorder: Yes Hx Depression: Yes Hx Emotional Abuse: No Hx Physical Abuse: No Hx Sexual Abuse: No Hx Substance Use: No (denies) - SURGICAL HISTORY Hx Surgeries: Yes Hx Orthopedic Surgery: Yes Other/Comment: Abdominal - colon resection - ANESTHESIA Hx Anesthesia: Yes Hx Anesthesia Reactions: No Hx Malignant Hyperthermia: No Meds Allergies/Adverse Reactions: Allergies Allergy/AdvReac Type Severity Reaction Status Date / Time No Known Allergies Allergy Verified 04/30/17 09:16 - Medications Medications: Current Medications Acetaminophen (Tylenol 325mg Tab) 650 mg PO Q6H PRN PRN Reason: Pain, Mild (1-3) Al Hydrox/Mg Hydrox/Simethicone (Maalox Plus 30 Ml) 30 ml PO DAILY PRN PRN Reason: Upset Stomach Clonazepam (Klonopin) 0.5 mg PO TID PRN; Protocol PRN Reason: Anxiety Last Admin: 04/30/17 17:15 Dose: 0.5 mg Cyclobenzaprine HCl (Flexeril) 5 mg PO DAILY [facility] Last Admin: 05/01/17 08:51 Dose: 5 mg Fluoxetine HCl (Prozac) 20 mg PO DAILY [facility] Last Admin: 05/01/17 08:51 Dose: 20 mg Gabapentin (Neurontin) 100 mg PO TID [facility] PRN Reason: Protocol Last Admin: 05/01/17 08:51 Dose: 100 mg Magnesium Hydroxide (Milk Of Magnesia) 30 ml PO DAILY PRN PRN Reason: Constipation Naproxen (Anaprox Ds) 550 mg PO BID [facility] Last Admin: 05/01/17 08:51 Dose: 550 mg Quetiapine Fumarate (Seroquel) 100 mg PO HS JASON PRN Reason: Protocol Last Admin: 04/30/17 21:41 Dose: 100 mg Trazodone HCl (Desyrel) 50 mg PO HS PRN PRN Reason: Insomnia Venlafaxine HCl (Effexor Xr) 225 mg PO DAILY [facility] Last Admin: 05/01/17 08:51 Dose: 225 mg Physical Exam - Constitutional Appears: No Acute Distress, Unkempt - Head Exam Head Exam: ATRAUMATIC, NORMAL INSPECTION - Eye Exam Eye Exam: EOMI, Normal appearance - ENT Exam ENT Exam: Mucous Membranes Moist - Neck Exam Neck exam: Positive for: Full Rom - Respiratory Exam Respiratory Exam: Clear to Auscultation Bilateral. absent: Rales, Rhonchi, Wheezes - Cardiovascular Exam Cardiovascular Exam: REGULAR RHYTHM, +S1, +S2 - GI/Abdominal Exam GI & Abdominal Exam: Normal Bowel Sounds, Soft. absent: Guarding, Rebound, Rigid, Tenderness - Extremities Exam Extremities exam: Positive for: normal capillary refill, normal inspection, pedal pulses present - Neurological Exam Neurological exam: Alert, Oriented x3 - Psychiatric Exam Psychiatric exam: Normal Affect, Normal Mood Results - Vital Signs Recent Vital Signs: Last Vital Signs Temp 98.5 F 04/30/17 09:12 Pulse 50 L 04/30/17 16:00 Resp 22 04/30/17 20:03 BP 96/60 L 04/30/17 16:00 Pulse Ox 98 04/30/17 13:30 - Labs Result Diagrams: 04/30/17 09:40 04/30/17 09:40 Assessment & Plan - Assessment and Plan (Free Text) Assessment: 61 year old male with pmhx of HTN, anxiety/depression presents for suicidal ideation 1. Stable, afebrile 2. Hx of HTN - patient last recorded BP noted to be 96/60, will recommend holding BP medications 3. Continue to monitor vital signs 4. UDS - positive for cannabinoids 5. Management per psych team 6. Plan d/w attending Mirian Fink PGY-1 <Lidya Arceo - Last Filed: 05/01/17 18:25> Meds - Medications Medications: Current Medications Acetaminophen (Tylenol 325mg Tab) 650 mg PO Q6H PRN PRN Reason: Pain, Mild (1-3) Al Hydrox/Mg Hydrox/Simethicone (Maalox Plus 30 Ml) 30 ml PO DAILY PRN PRN Reason: Upset Stomach Clonazepam (Klonopin) 0.5 mg PO TID PRN; Protocol PRN Reason: Anxiety Last Admin: 04/30/17 17:15 Dose: 0.5 mg Cyclobenzaprine HCl (Flexeril) 5 mg PO DAILY [facility] Last Admin: 05/01/17 08:51 Dose: 5 mg Fluoxetine HCl (Prozac) 20 mg PO DAILY [facility] Last Admin: 05/01/17 08:51 Dose: 20 mg Gabapentin (Neurontin) 100 mg PO TID JASON PRN Reason: Protocol Last Admin: 05/01/17 17:06 Dose: 100 mg Magnesium Hydroxide (Milk Of Magnesia) 30 ml PO DAILY PRN PRN Reason: Constipation Naproxen (Anaprox Ds) 550 mg PO BID [facility] Last Admin: 05/01/17 16:36 Dose: 550 mg Quetiapine Fumarate (Seroquel) 100 mg PO HS JASON PRN Reason: Protocol Last Admin: 04/30/17 21:41 Dose: 100 mg Trazodone HCl (Desyrel) 50 mg PO HS PRN PRN Reason: Insomnia Venlafaxine HCl (Effexor Xr) 225 mg PO DAILY [facility] Last Admin: 05/01/17 08:51 Dose: 225 mg Results - Vital Signs Recent Vital Signs: Last Vital Signs Temp 98.5 F 04/30/17 09:12 Pulse 56 L 05/01/17 16:00 Resp 22 04/30/17 20:03 BP 124/77 05/01/17 16:00 Pulse Ox 98 04/30/17 13:30 - Labs Result Diagrams: 04/30/17 09:40 04/30/17 09:40 Attending/Attestation - Attestation I have personally seen and examined this patient.: Yes I have fully participated in the care of the patient.: Yes I have reviewed all pertinent clinical information: Yes Notes (Text): 05/01/17 18:21 MEDICAL CONSULTATION 61 year old male with past medical history of hypertension, anxiety, and depression who presented with complaint of anxiety, panic attack and ?suicidal ideation after being told he was to be evicted by his landlord. Medical consultation was requested for evaluation. Continue with management as per psychiatrist for anxiety/depression. He reports he is on cozaar for history of hypertension. However his bp is 96/ 60 this morning so we will hold this for now and monitor. May consider to resume if he does become persistently hypertensive. Labs were reviewed. Utox was positive for cannabinoids. He was counselled. Thank you Dr. Mcneil for allowing us to participate in the care of this patient. Please re-consult as needed. Lidya Arceo MD Hospitalist.
[2017-05-02 07:38] LABS: GLUCOSE,FASTING 83 mg/dL (65-110); HDL CHOLESTEROL 25 mg/dL (29-60)
[2017-05-02 07:48] LABS: LDL CHOLESTEROL 80 mg/dL (0-129)
[2017-05-02 07:51] LABS: FREE T4 1.09 ng/dL (0.78-2.19)
[2017-05-02] MEDS: Venlafaxine 75 mg ER Cap PO SCH (08:53)
[2017-05-02] MEDS: Naproxen 550 mg Tab PO SCH ×2 (08:54→16:40)
--- NOTE | 2017-05-02 15:23 | PCM.PYCHPN ---
Psychiatric Progress Note - Psychiatric Progress Note Patient seen today, length of contact: 30min Patient Chief Complaint: "I am little better" Problems Identified/Issues Discussed: Suicide/ homicide prevention, past psychiatric h/o, current psychiatric symptoms , medical problems, risk/benefits and alternatives of medications, medications compliance, coping strategies, substance abuse h/o, relapse prevention, importance of follow up with psychiatrist and therapist, discharge plan. Medical Problems: partial colon resection for his diverticulosis, h/o rheumatoid arthritis Diagnostic Results: 04/30/17 09:40 04/30/17 09:40 Lab Results 05/02/17 07:00: Free T4 1.09, TSH 3rd Generation 2.04 05/02/17 07:00: Fasting Glucose 83, Triglycerides 208 H, Cholesterol 132, LDL Cholesterol Direct 80, HDL Cholesterol 25 L 04/30/17 12:30: Urine Opiates Screen Negative, Urine Methadone Screen Negative, Ur Barbiturates Screen Negative, Ur Phencyclidine Scrn Negative, Ur Amphetamines Screen Negative, U Benzodiazepines Scrn Negative, U Oth Cocaine Metabols Negative, U Cannabinoids Screen Positive H 04/30/17 12:30: Urine Color Yellow, Urine Appearance Sl cloudy, Urine pH 6.0, Ur Specific [place] 1.010, Urine Protein Negative, Urine Glucose (UA) Negative, Urine Ketones Negative, Urine Blood Moderate H, Urine Nitrate Negative, Urine Bilirubin Negative, Urine Urobilinogen 0.2, Ur Leukocyte Esterase Negative, Urine RBC 0 - 2, Urine WBC Negative 04/30/17 09:40: Alcohol, Quantitative < 10 04/30/17 09:40: Salicylates < 1 L, Acetaminophen < 10.0 L 04/30/17 09:40: Sodium 140, Potassium 3.7, Chloride 97, Carbon Dioxide 27, Anion Gap 20, BUN 17, Creatinine 1.4, Est GFR ( Amer) > 60, Est GFR (Non- Af Amer) 52, Random Glucose 118 H, Calcium 10.0, Total Bilirubin 0.6, AST 14 L, ALT 21, Alkaline Phosphatase 66, Total Protein 8.1, Albumin 5.0 H, Globulin 3.1 , Albumin/Globulin Ratio 1.6 04/30/17 09:40: WBC 10.7, RBC 5.66, Hgb 17.7, Hct 49.3, MCV 87.1, MCH 31.3, MCHC 35.9, RDW 13.6, Plt Count 221, MPV 9.2, Gran % 75.7 H, Lymph % (Auto) 17.4 L, [place] % (Auto) 6.0, Eos % (Auto) 0.8 L, Baso % (Auto) 0.1, Gran # 8.07 H, Lymph # 1.9, [place] # 0.6, Eos # 0.1, Baso # 0.01 Temp Pulse Resp BP Pulse Ox 98.4 F 53 L 20 115/68 98 05/02/17 07:33 05/02/17 07:33 05/02/17 07:33 05/02/17 07:33 04/30/17 13:30 DSM 5 Symptoms Update: Patient is 61yo SWM with h/o depression and anxiety, h/o multiple admissions in the past ([place] [facility] [place] lives independently, has poor social support (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 pt was seen at his room, presented to have marginal personal hygiene (not shaved , food stains on his clothes, uncombed curly hair), good ADLs. pt said that he feels "little better", pt still presented to have flat affect, poverty of speech and thoughts. pt still c/o "nervous brake down", was not able to explain what does he mean. pt is not attending groups, self isolative. no aggression, no agitation. med compliance is good, no side effects observed or reported, AIMS 0, no EPS. SW spoke to his sister, as per sister pt was always "odd and isolative", see SW note for more detailed info. Impression: DSM 5 Diagnosis: MDD (major depressive disorder), recurrent episode, severe MERCEDES (generalized anxiety disorder) Neurocognitive disorder cannabis abuse Medication Change: Yes (started yeserday) Medical Record Reviewed: Yes Consults ordered or reviewed: medical consult appreciated Mental Status Examination - Cognitive Function Orientation: Person, Place Memory: Impaired Attention: Poor Concentration: Poor Association: Loose Fund of Knowledge: Poor - Mood Mood: Depressed, Anxious - Affect Affect: Constricted, Flat - Speech Speech: Slurred - Formal Thought Process Formal Thought Process: No Impairment, Other (poverty of thoughts and speech) - Suicidal Ideation Suicidal Ideation: No - Homicidal Ideation Homicidal Ideation: No Goal/Treatment Plan - Goal/Treatment Plan Need for Continued Stay: Remain at risks for inpatient hospitalization, Severe depression anxiety, Discharge may exacerbated symptoms, Severe functional impairment Progress Toward Problem(s) and Goals/Treatment Plan: milieu/structure/supportive therapy Seroquel 100mg po bedtime mood stabilization and adjunct for MDD pt was on two antiderpessants, prozac will be tapered down Prozac 20mg tapering dose effexor XR 75mg 3 tabs a day for depression and anxiety klonopin 0.5mg po tid for anxiety will consider wellbutrin for depression traZODone [Desyrel] 50 mg PO HS prn for depression and insomnia Cyclobenzaprine [Flexeril] 5 mg PO DAILY Gabapentin [Neurontin] 100 mg PO tid will be continued SW evaluation, collaterals from sister appreciated will monitor closely Estimated Date of D/C: 05/07/17 (will monitor closely) - Smoking Cessation Smoking Cessation Initiated: Yes
[2017-05-02] MEDS: Alum-Mag Hydrox-Simethicone Susp (30 mL) PO PRN (22:16)
[2017-05-03] MEDS: Venlafaxine 75 mg ER Cap PO SCH (08:50)
[2017-05-03] MEDS: Naproxen 550 mg Tab PO SCH ×2 (08:51→16:06)
--- NOTE | 2017-05-03 16:25 | PCM.PYCHPN ---
Psychiatric Progress Note - Psychiatric Progress Note Patient seen today, length of contact: 30min Patient Chief Complaint: "I don't like seroquel, I am sick, nervous you know..." Problems Identified/Issues Discussed: Suicide/ homicide prevention, past psychiatric h/o, current psychiatric symptoms , medical problems, risk/benefits and alternatives of medications, medications compliance, coping strategies, substance abuse h/o, relapse prevention, importance of follow up with psychiatrist and therapist, discharge plan. Medical Problems: partial colon resection for his diverticulosis, h/o rheumatoid arthritis Diagnostic Results: 04/30/17 09:40 04/30/17 09:40 Lab Results 05/02/17 07:00: Free T4 1.09, TSH 3rd Generation 2.04 05/02/17 07:00: Fasting Glucose 83, Triglycerides 208 H, Cholesterol 132, LDL Cholesterol Direct 80, HDL Cholesterol 25 L 04/30/17 12:30: Urine Opiates Screen Negative, Urine Methadone Screen Negative, Ur Barbiturates Screen Negative, Ur Phencyclidine Scrn Negative, Ur Amphetamines Screen Negative, U Benzodiazepines Scrn Negative, U Oth Cocaine Metabols Negative, U Cannabinoids Screen Positive H 04/30/17 12:30: Urine Color Yellow, Urine Appearance Sl cloudy, Urine pH 6.0, Ur Specific [place] 1.010, Urine Protein Negative, Urine Glucose (UA) Negative, Urine Ketones Negative, Urine Blood Moderate H, Urine Nitrate Negative, Urine Bilirubin Negative, Urine Urobilinogen 0.2, Ur Leukocyte Esterase Negative, Urine RBC 0 - 2, Urine WBC Negative 04/30/17 09:40: Alcohol, Quantitative < 10 04/30/17 09:40: Salicylates < 1 L, Acetaminophen < 10.0 L 04/30/17 09:40: Sodium 140, Potassium 3.7, Chloride 97, Carbon Dioxide 27, Anion Gap 20, BUN 17, Creatinine 1.4, Est GFR ( Amer) > 60, Est GFR (Non- Af Amer) 52, Random Glucose 118 H, Calcium 10.0, Total Bilirubin 0.6, AST 14 L, ALT 21, Alkaline Phosphatase 66, Total Protein 8.1, Albumin 5.0 H, Globulin 3.1 , Albumin/Globulin Ratio 1.6 04/30/17 09:40: WBC 10.7, RBC 5.66, Hgb 17.7, Hct 49.3, MCV 87.1, MCH 31.3, MCHC 35.9, RDW 13.6, Plt Count 221, MPV 9.2, Gran % 75.7 H, Lymph % (Auto) 17.4 L, [place] % (Auto) 6.0, Eos % (Auto) 0.8 L, Baso % (Auto) 0.1, Gran # 8.07 H, Lymph # 1.9, [place] # 0.6, Eos # 0.1, Baso # 0.01 Temp Pulse Resp BP Pulse Ox 98.4 F 53 L 20 115/68 98 05/02/17 07:33 05/02/17 07:33 05/02/17 07:33 05/02/17 07:33 04/30/17 13:30 DSM 5 Symptoms Update: Patient is 61yo SWM with h/o depression and anxiety, h/o multiple admissions in the past (most recent was two months ago [facility] [place] pt lives independently, has poor social support (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 pt was seen at the tx team room, presented to have marginal personal hygiene ( not shaved, food stains on his clothes, uncombed curly hair), good ADLs. pt said that he feels "nervous you know, I don't feel good, I feel sick, I don' t like seroquel", pt still presented to have flat affect, poverty of speech and thoughts. pt still c/o "nervous brake down", was not able to explain what does he mean. pt is not attending groups, self isolative. no aggression, no agitation. as per PCP, pt c/o seeing rat in the room, no rat found pt hallucinated hs. med compliance is good, no side effects observed or reported, AIMS 0, no EPS. SW spoke to his sister, as per sister pt was always "odd and isolative", see SW note for more detailed info. sister willing to take pt to he home in [place] if pt will become homeless, pt willing to apply for the pension. Impression: DSM 5 Diagnosis: MDD (major depressive disorder), recurrent episode, severe MERCEDES (generalized anxiety disorder) Neurocognitive disorder cannabis abuse Medication Change: Yes (seroquel d/c, risperdal 0.5mghs ) Medical Record Reviewed: Yes Mental Status Examination - Cognitive Function Orientation: Person, Place Memory: Impaired Attention: Poor Concentration: Poor Association: Loose Fund of Knowledge: Poor - Mood Mood: Depressed, Anxious - Affect Affect: Constricted, Flat - Speech Speech: Slurred - Formal Thought Process Formal Thought Process: No Impairment, Other (poverty of thoughts and speech) - Suicidal Ideation Suicidal Ideation: No - Homicidal Ideation Homicidal Ideation: No Goal/Treatment Plan - Goal/Treatment Plan Need for Continued Stay: Remain at risks for inpatient hospitalization, Severe depression anxiety, Discharge may exacerbated symptoms, Severe functional impairment Progress Toward Problem(s) and Goals/Treatment Plan: milieu/structure/supportive therapy Seroquel d.c risperdal 0.5mghs for psychosis pt was on two antiderpessants, prozac will be tapered down Prozac was d/c today (pt was on three antidepressants prozac, effexor and trazodone) effexor XR 75mg 3 tabs a day for depression and anxiety klonopin 0.5mg po tid for anxiety will consider wellbutrin for depression traZODone [Desyrel] 50 mg PO HS prn for depression and insomnia Cyclobenzaprine [Flexeril] 5 mg PO DAILY Gabapentin [Neurontin] 100 mg PO tid will be continued SW evaluation, collaterals from sister appreciated will monitor closely Estimated Date of D/C: 05/07/17 (will monitor closely)
[2017-05-04] MEDS: Alum-Mag Hydrox-Simethicone Susp (30 mL) PO PRN (08:05)
[2017-05-04] MEDS: Venlafaxine 75 mg ER Cap PO SCH (08:05)
[2017-05-04] MEDS: Naproxen 550 mg Tab PO SCH ×2 (08:05→17:33)
--- NOTE | 2017-05-04 08:54 | PCM.PYCHPN ---
Psychiatric Progress Note - Psychiatric Progress Note Patient seen today, length of contact: 25 min Problems Identified/Issues Discussed: I reviewed assessment and recent notes. Patient was interviewed at bedside. He is calm and cooperative. Patient reports feeling depressed and denies any new concerns. Affect is quiet and constricted. Patient has been tolerating his medications and denies any new discomfort or pain. He reports that he slept well however doesn't like the way trazodone makes him feel. Patient specifically denies wishes, suicidal thoughts or hallucinations. Responses remains brief without elaboration however they are coherent and relevant. Delusions were not elicited. There were no behavioral issues overnight Diagnostic Results: MDD (major depressive disorder), recurrent episode, severe MERCEDES (generalized anxiety disorder) Neurocognitive disorder cannabis abuse Medication Change: Yes (trazodone discontinued and sonata initiated on 05/04/17) Medical Record Reviewed: Yes Mental Status Examination - Cognitive Function Orientation: Person, Place Memory: Impaired Attention: Poor Concentration: Poor Association: Loose Fund of Knowledge: Poor - Mood Mood: Depressed, Anxious - Affect Affect: Constricted, Flat - Speech Speech: Slurred - Formal Thought Process Formal Thought Process: No Impairment, Other (poverty of thoughts and speech) - Suicidal Ideation Suicidal Ideation: No - Homicidal Ideation Homicidal Ideation: No Goal/Treatment Plan - Goal/Treatment Plan Need for Continued Stay: Remain at risks for inpatient hospitalization, Severe depression anxiety, Discharge may exacerbated symptoms, Severe functional impairment Progress Toward Problem(s) and Goals/Treatment Plan: * c/w current tx and plan * trazodone discontinued and sonata initiated on 05/04/17 * No new weekend labs * Vitals reviewed and noted below: Selected Entries 05/03/17 05/03/17 07:07 16:03 Temperature 98.7 F Pulse Rate 63 63 Respiratory 16 Rate Blood Pressure 133/90 140/92 H Estimated Date of D/C: 05/07/17 (will monitor closely)
[2017-05-05] MEDS: Alum-Mag Hydrox-Simethicone Susp (30 mL) PO PRN (04:34)
[2017-05-05] MEDS: Naproxen 550 mg Tab PO SCH ×2 (09:20→17:38)
[2017-05-05] MEDS: Venlafaxine 75 mg ER Cap PO SCH (09:20)
--- NOTE | 2017-05-05 09:21 | PCM.PYCHPN ---
Psychiatric Progress Note - Psychiatric Progress Note Patient seen today, length of contact: 25 min Problems Identified/Issues Discussed: I reviewed recent notes and met with patient at bedside. He is calm and cooperative. Patient still reports feeling depressed but hopeful. Affect is quiet and constricted. Patient has been tolerating his medications and denies any new discomfort or pain. Indicates that it was Risperdal that gives him a bad reaction not trazodone. He didn't sleep as well with sonata last night and would like trazodone to be restarted. Patient refused Risperdal last night. Patient specifically denies wishes, suicidal thoughts or hallucinations. Responses remains brief without elaboration however they are coherent and relevant. Delusions were not elicited. Patient has been quiet on the unit, visible but not interactive. There were no major behavioral issues over the weekend. Diagnostic Results: MDD (major depressive disorder), recurrent episode, severe MERCEDES (generalized anxiety disorder) Neurocognitive disorder cannabis abuse Medication Change: Yes (trazodone restarted and sonata discontinued on 05/05/17) Medical Record Reviewed: Yes Mental Status Examination - Cognitive Function Orientation: Person, Place Memory: Impaired Attention: Poor Concentration: Poor Association: Loose Fund of Knowledge: Poor - Mood Mood: Depressed, Anxious - Affect Affect: Constricted, Flat - Speech Speech: Slurred - Formal Thought Process Formal Thought Process: No Impairment, Other (poverty of thoughts and speech) - Suicidal Ideation Suicidal Ideation: No - Homicidal Ideation Homicidal Ideation: No Goal/Treatment Plan - Goal/Treatment Plan Need for Continued Stay: Remain at risks for inpatient hospitalization, Severe depression anxiety, Discharge may exacerbated symptoms, Severe functional impairment Progress Toward Problem(s) and Goals/Treatment Plan: * c/w current tx and plan * trazodone discontinued and sonata initiated on 05/04/17, then trazodone restarted and sonata discontinued on 05/05/17 * No new weekend labs * Vitals reviewed and noted below: Selected Entries 05/04/17 05/04/17 07:44 16:00 Temperature 98.5 F Pulse Rate 64 63 Respiratory 20 Rate Blood Pressure 124/75 131/87 Estimated Date of D/C: 05/07/17 (will monitor closely)
[2017-05-06] MEDS: Venlafaxine 75 mg ER Cap PO SCH (08:47)
[2017-05-06] MEDS: Naproxen 550 mg Tab PO SCH ×2 (08:48→17:10)
--- NOTE | 2017-05-06 16:14 | PCM.PYCHPN ---
Psychiatric Progress Note - Psychiatric Progress Note Patient seen today, length of contact: 25 min Patient Chief Complaint: "risperdal does not fit in my body""I don't know, you are the doctor, you need to figure it out" Problems Identified/Issues Discussed: Suicide/ homicide prevention, past psychiatric h/o, current psychiatric symptoms , medical problems, risk/benefits and alternatives of medications, medications compliance, coping strategies, substance abuse h/o, relapse prevention, importance of follow up with psychiatrist and therapist, discharge plan. Medical Problems: partial colon resection for his diverticulosis, h/o rheumatoid arthritis Diagnostic Results: 04/30/17 09:40 04/30/17 09:40 Lab Results 05/02/17 07:00: Free T4 1.09, TSH 3rd Generation 2.04 05/02/17 07:00: Fasting Glucose 83, Triglycerides 208 H, Cholesterol 132, LDL Cholesterol Direct 80, HDL Cholesterol 25 L 04/30/17 12:30: Urine Opiates Screen Negative, Urine Methadone Screen Negative, Ur Barbiturates Screen Negative, Ur Phencyclidine Scrn Negative, Ur Amphetamines Screen Negative, U Benzodiazepines Scrn Negative, U Oth Cocaine Metabols Negative, U Cannabinoids Screen Positive H 04/30/17 12:30: Urine Color Yellow, Urine Appearance Sl cloudy, Urine pH 6.0, Ur Specific [place] 1.010, Urine Protein Negative, Urine Glucose (UA) Negative, Urine Ketones Negative, Urine Blood Moderate H, Urine Nitrate Negative, Urine Bilirubin Negative, Urine Urobilinogen 0.2, Ur Leukocyte Esterase Negative, Urine RBC 0 - 2, Urine WBC Negative 04/30/17 09:40: Alcohol, Quantitative < 10 04/30/17 09:40: Salicylates < 1 L, Acetaminophen < 10.0 L 04/30/17 09:40: Sodium 140, Potassium 3.7, Chloride 97, Carbon Dioxide 27, Anion Gap 20, BUN 17, Creatinine 1.4, Est GFR ( Amer) > 60, Est GFR (Non- Af Amer) 52, Random Glucose 118 H, Calcium 10.0, Total Bilirubin 0.6, AST 14 L, ALT 21, Alkaline Phosphatase 66, Total Protein 8.1, Albumin 5.0 H, Globulin 3.1 , Albumin/Globulin Ratio 1.6 04/30/17 09:40: WBC 10.7, RBC 5.66, Hgb 17.7, Hct 49.3, MCV 87.1, MCH 31.3, MCHC 35.9, RDW 13.6, Plt Count 221, MPV 9.2, Gran % 75.7 H, Lymph % (Auto) 17.4 L, [place] % (Auto) 6.0, Eos % (Auto) 0.8 L, Baso % (Auto) 0.1, Gran # 8.07 H, Lymph # 1.9, [place] # 0.6, Eos # 0.1, Baso # 0.01 Temp Pulse Resp BP Pulse Ox 98.4 F 53 L 20 115/68 98 05/02/17 07:33 05/02/17 07:33 05/02/17 07:33 05/02/17 07:33 04/30/17 13:30 Temp Pulse Resp BP Pulse Ox 98.0 F 60 18 125/77 98 05/05/17 08:00 05/06/17 15:32 05/05/17 08:00 05/06/17 15:32 04/30/17 13:30 DSM 5 Symptoms Update: Patient is 61yo SWM with h/o depression and anxiety, h/o multiple admissions in the past [place] [facility] [place] lives independently, has poor social support (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 pt was seen at the tx team room, presented to have marginal personal hygiene ( not shaved, food stains on his clothes, uncombed curly hair), good ADLs. pt said that "risperdal does not fit in my body", when was asked in what way "I don't know, you are the doctor, you need to figure it out", pt was offered to resume seroquel "seroquel does not fit in my body either, then same answer. at present time will try thorazine. pt is not attending groups, self isolative. no aggression, no agitation. as per PCP, pt c/o seeing rat in the room, no rat found pt hallucinated hs. med compliance is good, no side effects observed or reported, AIMS 0, no EPS. SW spoke to his sister, as per sister pt was always "odd and isolative", see SW note for more detailed info. sister willing to take pt to he home in [place] if pt will become homeless, pt willing to apply for the pension. Impression: DSM 5 Diagnosis: MDD (major depressive disorder), recurrent episode, severe MERCEDES (generalized anxiety disorder) Neurocognitive disorder cannabis abuse Medication Change: Yes (thorazine 25mg hs) Medical Record Reviewed: Yes Consults ordered or reviewed: medical consult appreciated Mental Status Examination - Cognitive Function Orientation: Person, Place Memory: Impaired Attention: Poor Concentration: Poor Association: Loose Fund of Knowledge: Poor - Mood Mood: Depressed, Anxious - Affect Affect: Constricted, Flat - Speech Speech: Slurred - Formal Thought Process Formal Thought Process: No Impairment, Other (poverty of thoughts and speech) - Suicidal Ideation Suicidal Ideation: No - Homicidal Ideation Homicidal Ideation: No Goal/Treatment Plan - Goal/Treatment Plan Need for Continued Stay: Remain at risks for inpatient hospitalization, Severe depression anxiety, Discharge may exacerbated symptoms, Severe functional impairment Progress Toward Problem(s) and Goals/Treatment Plan: milieu/structure/supportive therapy ripserdal d/c thorazine 25mghs for psychosis and insomnia effexor XR 75mg 3 tabs a day for depression and anxiety klonopin 0.5mg po tid for anxiety will consider wellbutrin for depression traZODone [Desyrel] 50 mg PO HS prn for depression and insomnia Cyclobenzaprine [Flexeril] 5 mg PO DAILY Gabapentin [Neurontin] 100 mg PO tid will be continued SAKINA evaluation, collaterals from sister appreciated will monitor closely Estimated Date of D/C: 05/07/17 (will monitor closely)
[2017-05-07] MEDS: Naproxen 550 mg Tab PO SCH ×2 (08:20→16:35)
[2017-05-07] MEDS: Venlafaxine 75 mg ER Cap PO SCH (08:21)
--- NOTE | 2017-05-07 13:41 | PCM.PYCHPN ---
Psychiatric Progress Note - Psychiatric Progress Note Patient seen today, length of contact: 25 min Patient Chief Complaint: "I am fine, I am little better" Problems Identified/Issues Discussed: Suicide/ homicide prevention, past psychiatric h/o, current psychiatric symptoms , medical problems, risk/benefits and alternatives of medications, medications compliance, coping strategies, substance abuse h/o, relapse prevention, importance of follow up with psychiatrist and therapist, discharge plan. Medical Problems: partial colon resection for his diverticulosis, h/o rheumatoid arthritis Diagnostic Results: 04/30/17 09:40 04/30/17 09:40 Lab Results 05/02/17 07:00: Free T4 1.09, TSH 3rd Generation 2.04 05/02/17 07:00: Fasting Glucose 83, Triglycerides 208 H, Cholesterol 132, LDL Cholesterol Direct 80, HDL Cholesterol 25 L 04/30/17 12:30: Urine Opiates Screen Negative, Urine Methadone Screen Negative, Ur Barbiturates Screen Negative, Ur Phencyclidine Scrn Negative, Ur Amphetamines Screen Negative, U Benzodiazepines Scrn Negative, U Oth Cocaine Metabols Negative, U Cannabinoids Screen Positive H 04/30/17 12:30: Urine Color Yellow, Urine Appearance Sl cloudy, Urine pH 6.0, Ur Specific [place] 1.010, Urine Protein Negative, Urine Glucose (UA) Negative, Urine Ketones Negative, Urine Blood Moderate H, Urine Nitrate Negative, Urine Bilirubin Negative, Urine Urobilinogen 0.2, Ur Leukocyte Esterase Negative, Urine RBC 0 - 2, Urine WBC Negative 04/30/17 09:40: Alcohol, Quantitative < 10 04/30/17 09:40: Salicylates < 1 L, Acetaminophen < 10.0 L 04/30/17 09:40: Sodium 140, Potassium 3.7, Chloride 97, Carbon Dioxide 27, Anion Gap 20, BUN 17, Creatinine 1.4, Est GFR ( Amer) > 60, Est GFR (Non- Af Amer) 52, Random Glucose 118 H, Calcium 10.0, Total Bilirubin 0.6, AST 14 L, ALT 21, Alkaline Phosphatase 66, Total Protein 8.1, Albumin 5.0 H, Globulin 3.1 , Albumin/Globulin Ratio 1.6 04/30/17 09:40: WBC 10.7, RBC 5.66, Hgb 17.7, Hct 49.3, MCV 87.1, MCH 31.3, MCHC 35.9, RDW 13.6, Plt Count 221, MPV 9.2, Gran % 75.7 H, Lymph % (Auto) 17.4 L, [place] % (Auto) 6.0, Eos % (Auto) 0.8 L, Baso % (Auto) 0.1, Gran # 8.07 H, Lymph # 1.9, [place] # 0.6, Eos # 0.1, Baso # 0.01 Temp Pulse Resp BP Pulse Ox 98.4 F 53 L 20 115/68 98 05/02/17 07:33 05/02/17 07:33 05/02/17 07:33 05/02/17 07:33 04/30/17 13:30 Temp Pulse Resp BP Pulse Ox 98.0 F 60 18 125/77 98 05/05/17 08:00 05/06/17 15:32 05/05/17 08:00 05/06/17 15:32 04/30/17 13:30 Temp Pulse Resp BP Pulse Ox 98.3 F 51 L 20 117/70 98 05/07/17 07:49 05/07/17 07:49 05/07/17 07:49 05/07/17 07:49 04/30/17 13:30 DSM 5 Symptoms Update: Patient is 61yo SWM with h/o depression and anxiety, h/o multiple admissions in the past (most recent was two months ago [facility] [place] pt lives independently, has poor social support (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 pt was seen in his room, presented to have marginal personal hygiene (not shaved , food stains on his clothes, uncombed curly hair), good ADLs. pt reported "feeling little better, but I don't know how I will feel later on", pt deneid thoughts of harming self or others, pt has cognitive limitation, poverty of speech, thoughts. pt is not attending groups, self isolative. no aggression, no agitation. as per PCP med compliance is good, no side effects observed or reported, AIMS 0, no EPS. SW spoke to his sister, as per sister pt was always "odd and isolative", see SW note for more detailed info. sister willing to take pt to he home in [place] if pt will become homeless, pt willing to apply for the pension. Impression: DSM 5 Diagnosis: MDD (major depressive disorder), recurrent episode, severe MERCEDES (generalized anxiety disorder) Neurocognitive disorder cannabis abuse Medication Change: No (thorazine 25mg hs) Medical Record Reviewed: Yes Consults ordered or reviewed: medical consult appreciated Mental Status Examination - Cognitive Function Orientation: Person, Place Memory: Impaired Attention: Poor Concentration: Poor Association: Loose Fund of Knowledge: Poor - Mood Mood: Depressed, Anxious - Affect Affect: Constricted, Flat - Speech Speech: Slurred - Formal Thought Process Formal Thought Process: No Impairment, Other (poverty of thoughts and speech) - Suicidal Ideation Suicidal Ideation: No - Homicidal Ideation Homicidal Ideation: No Goal/Treatment Plan - Goal/Treatment Plan Need for Continued Stay: Remain at risks for inpatient hospitalization, Severe depression anxiety, Discharge may exacerbated symptoms, Severe functional impairment Progress Toward Problem(s) and Goals/Treatment Plan: milieu/structure/supportive therapy thorazine 25mghs for psychosis and insomnia effexor XR 75mg 3 tabs a day for depression and anxiety klonopin 0.5mg po tid for anxiety will consider wellbutrin for depression traZODone [Desyrel] 50 mg PO HS prn for depression and insomnia Cyclobenzaprine [Flexeril] 5 mg PO DAILY Gabapentin [Neurontin] 100 mg PO tid will be continued SW evaluation, collaterals from sister appreciated will monitor closely Estimated Date of D/C: 05/10/17 (will monitor closely)
[2017-05-08] MEDS: Venlafaxine 75 mg ER Cap PO SCH (09:05)
[2017-05-08] MEDS: Naproxen 550 mg Tab PO SCH ×2 (09:07→18:13)
--- NOTE | 2017-05-08 13:52 | PCM.BM ---
Treatment Plan Problems - Problems identified on initial assessmt Hopelessness Date Initiated: 04/30/17 Time Initiated: 18:39 Assessment reference: NA Status: Active Priority: 1 Anxiety Date Initiated: 04/30/17 Time Initiated: 18:39 Assessment reference: NA Status: Active Priority: 2 Treatment assets and liabiliti Patient Assests: cooperative, ADL independent, physically healthy, negotiates basic needs Patient Liabilities: live alone, physical pain, financial problems - Diagnosis (1) Cannabis abuse Status: Chronic Interventions: 05/01/17 13:00 Maintaining sobriety Relapse prevention Motivational interviewing (2) Neurocognitive disorder Status: Chronic Interventions: 05/01/17 13:00 Pt will be seen by medical team as needed supportive therapy (3) MERCEDES (generalized anxiety disorder) Status: Chronic Interventions: 05/01/17 13:01 Psychoeducation Psychopharmacology/adjustment of medications as needed/ monitoring possible side effects Evaluate pt on daily basis pt is doing better, complaining of anxiety still 05/08/17 13:51 (4) MDD (major depressive disorder), recurrent episode, severe Status: Chronic Interventions: 05/01/17 13:01 Psychoeducation Psychopharmacology/adjustment of medications as needed/ monitoring possible side effects Evaluate pt on daily basis pt is doing better less depressed - Milieu Protocol Maintain good personal hygiene: every shift Encourage regular showers, every shift Remind patient to perform daily oral care, every shift Assist patient to perform ADL's Maintain personal safety: every shift Educate patient to report safety concerns to staff, every shift Monitor environment for contraband/sharps Medication safety: Monitor for expected outcome, potential side effects: every shift, Assess barriers to learning: every shift, Assess readiness for medication education: every shift Milieu Narrative: milieu/structure/supportive therapy thorazine 25mghs for psychosis and insomnia effexor XR 75mg 3 tabs a day for depression and anxiety klonopin 0.5mg po tid for anxiety will consider wellbutrin for depression traZODone [Desyrel] 50 mg PO HS prn for depression and insomnia Cyclobenzaprine [Flexeril] 5 mg PO DAILY Gabapentin [Neurontin] 100 mg PO tid will be continued SW evaluation, collaterals from sister appreciated will monitor closely Family Contact Family involvement: Family/SO is involved - Outside Agency [employer] Care involvment: Information-sharing Agency contact name: Ton Puckett Agency contact number: [phone] [facility] Care involvment: Not involved Agency contact name: [facility] Agency contact number: [phone] - Goals for Treatment Patient goals for treatment: "To get my psychological problems in order." Discharge/Continuing Care - Education Needs Education Needs: Patient Medication, Patient Diagnosis/Disease Process, Patient Coping Skills, Patient Placement options, Patient Community resources, Patient Health Practices/Safety - Discharge Discharge Criteria: Tolerates medication w/o severe side effects, Ability to care for self - Treatment Team Participation Patient/Family/SO Statement: milieu/structure/supportive therapy thorazine 25mghs for psychosis and insomnia effexor XR 75mg 3 tabs a day for depression and anxiety klonopin 0.5mg po tid for anxiety will consider wellbutrin for depression traZODone [Desyrel] 50 mg PO HS prn for depression and insomnia Cyclobenzaprine [Flexeril] 5 mg PO DAILY Gabapentin [Neurontin] 100 mg PO tid will be continued SW evaluation, collaterals from sister appreciated will monitor closely Treatment Plan Review - Problem Hopelessness Time Initiated: 18:39 Anxiety Time Initiated: 18:39
--- NOTE | 2017-05-08 15:34 | PCM.PYCHPN ---
Psychiatric Progress Note - Psychiatric Progress Note Patient seen today, length of contact: 30min Patient Chief Complaint: "I am little anxious" Problems Identified/Issues Discussed: Suicide/ homicide prevention, past psychiatric h/o, current psychiatric symptoms , medical problems, risk/benefits and alternatives of medications, medications compliance, coping strategies, substance abuse h/o, relapse prevention, importance of follow up with psychiatrist and therapist, discharge plan. Medical Problems: partial colon resection for his diverticulosis, h/o rheumatoid arthritis Diagnostic Results: 04/30/17 09:40 04/30/17 09:40 Lab Results 05/02/17 07:00: Free T4 1.09, TSH 3rd Generation 2.04 05/02/17 07:00: Fasting Glucose 83, Triglycerides 208 H, Cholesterol 132, LDL Cholesterol Direct 80, HDL Cholesterol 25 L 04/30/17 12:30: Urine Opiates Screen Negative, Urine Methadone Screen Negative, Ur Barbiturates Screen Negative, Ur Phencyclidine Scrn Negative, Ur Amphetamines Screen Negative, U Benzodiazepines Scrn Negative, U Oth Cocaine Metabols Negative, U Cannabinoids Screen Positive H 04/30/17 12:30: Urine Color Yellow, Urine Appearance Sl cloudy, Urine pH 6.0, Ur Specific [place] 1.010, Urine Protein Negative, Urine Glucose (UA) Negative, Urine Ketones Negative, Urine Blood Moderate H, Urine Nitrate Negative, Urine Bilirubin Negative, Urine Urobilinogen 0.2, Ur Leukocyte Esterase Negative, Urine RBC 0 - 2, Urine WBC Negative 04/30/17 09:40: Alcohol, Quantitative < 10 04/30/17 09:40: Salicylates < 1 L, Acetaminophen < 10.0 L 04/30/17 09:40: Sodium 140, Potassium 3.7, Chloride 97, Carbon Dioxide 27, Anion Gap 20, BUN 17, Creatinine 1.4, Est GFR ( Amer) > 60, Est GFR (Non- Af Amer) 52, Random Glucose 118 H, Calcium 10.0, Total Bilirubin 0.6, AST 14 L, ALT 21, Alkaline Phosphatase 66, Total Protein 8.1, Albumin 5.0 H, Globulin 3.1 , Albumin/Globulin Ratio 1.6 04/30/17 09:40: WBC 10.7, RBC 5.66, Hgb 17.7, Hct 49.3, MCV 87.1, MCH 31.3, MCHC 35.9, RDW 13.6, Plt Count 221, MPV 9.2, Gran % 75.7 H, Lymph % (Auto) 17.4 L, [place] % (Auto) 6.0, Eos % (Auto) 0.8 L, Baso % (Auto) 0.1, Gran # 8.07 H, Lymph # 1.9, [place] # 0.6, Eos # 0.1, Baso # 0.01 Temp Pulse Resp BP Pulse Ox 98.4 F 53 L 20 115/68 98 05/02/17 07:33 05/02/17 07:33 05/02/17 07:33 05/02/17 07:33 04/30/17 13:30 Temp Pulse Resp BP Pulse Ox 98.0 F 60 18 125/77 98 05/05/17 08:00 05/06/17 15:32 05/05/17 08:00 05/06/17 15:32 04/30/17 13:30 Temp Pulse Resp BP Pulse Ox 98.3 F 51 L 20 117/70 98 05/07/17 07:49 05/07/17 07:49 05/07/17 07:49 05/07/17 07:49 04/30/17 13:30 DSM 5 Symptoms Update: Patient is 61yo SWM with h/o depression and anxiety, h/o multiple admissions in the past (most recent was two months ago [facility] [place] pt lives independently, has poor social support (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 pt was seen at the treatment team meeting, presented to have marginal personal hygiene (not shaved, food stains on his clothes, uncombed curly hair), good ADLs. pt reported "I still feel anxious", pt is staying in his room, self isolating, pt said that he is willing to apply for the pension, pt said "now it means I will lose the job", pt was educated that he needs to have income, pt was receptive, pt said that he wants to go to the [place] to stay with his sisters, SW will call them for f/u. pt has cognitive limitation, poverty of speech, thoughts. pt is not attending groups, self isolative. no aggression, no agitation. as per PCP med compliance is good, no side effects observed or reported, AIMS 0, no EPS. SW spoke to his sister, as per sister pt was always "odd and isolative", see SW note for more detailed info. sister willing to take pt to he home in [place] if pt will become homeless, pt willing to apply for the pension. Impression: DSM 5 Diagnosis: MDD (major depressive disorder), recurrent episode, severe MERCEDES (generalized anxiety disorder) Neurocognitive disorder cannabis abuse Medication Change: Yes (klonopin scheduled) Medical Record Reviewed: Yes Consults ordered or reviewed: medical consult appreciated Mental Status Examination - Cognitive Function Orientation: Person, Place Memory: Impaired Attention: Poor Concentration: Poor Association: Loose Fund of Knowledge: Poor - Mood Mood: Depressed, Anxious - Affect Affect: Constricted, Flat - Speech Speech: Slurred - Formal Thought Process Formal Thought Process: No Impairment, Other (poverty of thoughts and speech) - Suicidal Ideation Suicidal Ideation: No - Homicidal Ideation Homicidal Ideation: No Goal/Treatment Plan - Goal/Treatment Plan Need for Continued Stay: Remain at risks for inpatient hospitalization, Severe depression anxiety, Discharge may exacerbated symptoms, Severe functional impairment Progress Toward Problem(s) and Goals/Treatment Plan: milieu/structure/supportive therapy thorazine 25mghs for psychosis and insomnia effexor XR 75mg 3 tabs a day for depression and anxiety klonopin 0.5mg po tid scheduled for anxiety will consider wellbutrin for depression traZODone [Desyrel] 50 mg PO HS prn for depression and insomnia Cyclobenzaprine [Flexeril] 5 mg PO DAILY Gabapentin [Neurontin] 100 mg PO tid will be continued SW evaluation, collaterals from sister appreciated will monitor closely Estimated Date of D/C: 05/10/17 (will monitor closely)
[2017-05-09] MEDS: Naproxen 550 mg Tab PO SCH ×2 (09:30→17:46)
[2017-05-09] MEDS: Venlafaxine 75 mg ER Cap PO SCH (09:30)
--- NOTE | 2017-05-09 18:18 | PCM.PYCHPN ---
Psychiatric Progress Note - Psychiatric Progress Note Patient seen today, length of contact: 30min Patient Chief Complaint: "I am less anxious" Problems Identified/Issues Discussed: Suicide/ homicide prevention, past psychiatric h/o, current psychiatric symptoms , medical problems, risk/benefits and alternatives of medications, medications compliance, coping strategies, substance abuse h/o, relapse prevention, importance of follow up with psychiatrist and therapist, discharge plan. Medical Problems: partial colon resection for his diverticulosis, h/o rheumatoid arthritis Diagnostic Results: 04/30/17 09:40 04/30/17 09:40 Lab Results 05/02/17 07:00: Free T4 1.09, TSH 3rd Generation 2.04 05/02/17 07:00: Fasting Glucose 83, Triglycerides 208 H, Cholesterol 132, LDL Cholesterol Direct 80, HDL Cholesterol 25 L 04/30/17 12:30: Urine Opiates Screen Negative, Urine Methadone Screen Negative, Ur Barbiturates Screen Negative, Ur Phencyclidine Scrn Negative, Ur Amphetamines Screen Negative, U Benzodiazepines Scrn Negative, U Oth Cocaine Metabols Negative, U Cannabinoids Screen Positive H 04/30/17 12:30: Urine Color Yellow, Urine Appearance Sl cloudy, Urine pH 6.0, Ur Specific [place] 1.010, Urine Protein Negative, Urine Glucose (UA) Negative, Urine Ketones Negative, Urine Blood Moderate H, Urine Nitrate Negative, Urine Bilirubin Negative, Urine Urobilinogen 0.2, Ur Leukocyte Esterase Negative, Urine RBC 0 - 2, Urine WBC Negative 04/30/17 09:40: Alcohol, Quantitative < 10 04/30/17 09:40: Salicylates < 1 L, Acetaminophen < 10.0 L 04/30/17 09:40: Sodium 140, Potassium 3.7, Chloride 97, Carbon Dioxide 27, Anion Gap 20, BUN 17, Creatinine 1.4, Est GFR ( Amer) > 60, Est GFR (Non- Af Amer) 52, Random Glucose 118 H, Calcium 10.0, Total Bilirubin 0.6, AST 14 L, ALT 21, Alkaline Phosphatase 66, Total Protein 8.1, Albumin 5.0 H, Globulin 3.1 , Albumin/Globulin Ratio 1.6 04/30/17 09:40: WBC 10.7, RBC 5.66, Hgb 17.7, Hct 49.3, MCV 87.1, MCH 31.3, MCHC 35.9, RDW 13.6, Plt Count 221, MPV 9.2, Gran % 75.7 H, Lymph % (Auto) 17.4 L, [place] % (Auto) 6.0, Eos % (Auto) 0.8 L, Baso % (Auto) 0.1, Gran # 8.07 H, Lymph # 1.9, [place] # 0.6, Eos # 0.1, Baso # 0.01 Temp Pulse Resp BP Pulse Ox 98.4 F 53 L 20 115/68 98 05/02/17 07:33 05/02/17 07:33 05/02/17 07:33 05/02/17 07:33 04/30/17 13:30 Temp Pulse Resp BP Pulse Ox 98.0 F 60 18 125/77 98 05/05/17 08:00 05/06/17 15:32 05/05/17 08:00 05/06/17 15:32 04/30/17 13:30 Temp Pulse Resp BP Pulse Ox 98.3 F 51 L 20 117/70 98 05/07/17 07:49 05/07/17 07:49 05/07/17 07:49 05/07/17 07:49 04/30/17 13:30 Vital Signs Temp Pulse Resp BP Pulse Ox 05/09/17 07:23 97.8 F 58 L 20 123/81 05/08/17 16:00 55 L 130/75 05/08/17 07:20 98.0 F 52 L 20 103/58 L 05/07/17 16:30 52 L 91/55 L 05/07/17 07:49 98.3 F 51 L 20 117/70 05/06/17 15:32 60 125/77 05/05/17 16:00 56 L 114/74 05/05/17 08:00 98.0 F 60 18 117/73 05/04/17 16:00 63 131/87 05/04/17 07:44 98.5 F 64 20 124/75 05/03/17 16:03 63 140/92 H 05/03/17 07:07 98.7 F 63 16 133/90 05/02/17 16:00 60 143/94 H 05/02/17 07:33 98.4 F 53 L 20 115/68 05/01/17 16:00 56 L 124/77 04/30/17 20:03 22 04/30/17 16:00 50 L 96/60 L 04/30/17 13:30 60 19 119/82 98 04/30/17 09:12 98.5 F 89 16 108/82 96 DSM 5 Symptoms Update: Patient is 61yo SWM with h/o depression and anxiety, h/o multiple admissions in the past (most recent was two months [place] [facility] [place] pt lives independently, has poor social support (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 pt was seen In his room, patient said that he feels less anxious, and "I am doing better", when this web content writer asked if he is ready for discharged, pt said "Not yet, may be in couple of days...", pt seems not willing to be d/c due to uncertainty of his living situation. as per , pt's sister is involved, see note for more detailed information. pt has cognitive limitation, poverty of speech, thoughts. pt is not attending groups, self isolative. no aggression, no agitation. as per PCP med compliance is good, no side effects observed or reported, AIMS 0, no EPS. Impression: DSM 5 Diagnosis: MDD (major depressive disorder), recurrent episode, severe MERCEDES (generalized anxiety disorder) Neurocognitive disorder cannabis abuse Medication Change: Yes (francisca scheduled) Medical Record Reviewed: Yes Consults ordered or reviewed: medical consult appreciated Mental Status Examination - Cognitive Function Orientation: Person, Place Memory: Impaired Attention: Poor (some improvement) Concentration: Poor (some improvement) Association: Loose Fund of Knowledge: Poor - Mood Mood: Depressed (some improvement), Anxious ("I am less anxious") - Affect Affect: Constricted - Speech Speech: Slurred - Formal Thought Process Formal Thought Process: No Impairment, Other (poverty of thoughts and speech) - Suicidal Ideation Suicidal Ideation: No - Homicidal Ideation Homicidal Ideation: No Goal/Treatment Plan - Goal/Treatment Plan Need for Continued Stay: Remain at risks for inpatient hospitalization, Severe depression anxiety, Discharge may exacerbated symptoms, Severe functional impairment Progress Toward Problem(s) and Goals/Treatment Plan: milieu/structure/supportive therapy thorazine 25mghs for psychosis and insomnia effexor XR 75mg 3 tabs a day for depression and anxiety klonopin 0.5mg po tid scheduled for anxiety will consider wellbutrin for depression traZODone [Desyrel] 50 mg PO HS prn for depression and insomnia Cyclobenzaprine [Flexeril] 5 mg PO DAILY Gabapentin [Neurontin] 100 mg PO tid will be continued SW evaluation, collaterals from sister appreciated will monitor closely Estimated Date of D/C: 05/10/17 (will monitor closely)
[2017-05-10] MEDS: Naproxen 550 mg Tab PO SCH ×2 (08:31→17:54)
[2017-05-10] MEDS: Venlafaxine 75 mg ER Cap PO SCH (08:31)
--- NOTE | 2017-05-10 15:54 | PCM.PYCHPN ---
Psychiatric Progress Note - Psychiatric Progress Note Patient seen today, length of contact: 30min Patient Chief Complaint: "I am less anxious, but I have difficulties to sleep" Problems Identified/Issues Discussed: Suicide/ homicide prevention, past psychiatric h/o, current psychiatric symptoms , medical problems, risk/benefits and alternatives of medications, medications compliance, coping strategies, substance abuse h/o, relapse prevention, importance of follow up with psychiatrist and therapist, discharge plan. Medical Problems: partial colon resection for his diverticulosis, h/o rheumatoid arthritis Diagnostic Results: 04/30/17 09:40 04/30/17 09:40 Lab Results 05/02/17 07:00: Free T4 1.09, TSH 3rd Generation 2.04 05/02/17 07:00: Fasting Glucose 83, Triglycerides 208 H, Cholesterol 132, LDL Cholesterol Direct 80, HDL Cholesterol 25 L 04/30/17 12:30: Urine Opiates Screen Negative, Urine Methadone Screen Negative, Ur Barbiturates Screen Negative, Ur Phencyclidine Scrn Negative, Ur Amphetamines Screen Negative, U Benzodiazepines Scrn Negative, U Oth Cocaine Metabols Negative, U Cannabinoids Screen Positive H 04/30/17 12:30: Urine Color Yellow, Urine Appearance Sl cloudy, Urine pH 6.0, Ur Specific [place] 1.010, Urine Protein Negative, Urine Glucose (UA) Negative, Urine Ketones Negative, Urine Blood Moderate H, Urine Nitrate Negative, Urine Bilirubin Negative, Urine Urobilinogen 0.2, Ur Leukocyte Esterase Negative, Urine RBC 0 - 2, Urine WBC Negative 04/30/17 09:40: Alcohol, Quantitative < 10 04/30/17 09:40: Salicylates < 1 L, Acetaminophen < 10.0 L 04/30/17 09:40: Sodium 140, Potassium 3.7, Chloride 97, Carbon Dioxide 27, Anion Gap 20, BUN 17, Creatinine 1.4, Est GFR ( Amer) > 60, Est GFR (Non- Af Amer) 52, Random Glucose 118 H, Calcium 10.0, Total Bilirubin 0.6, AST 14 L, ALT 21, Alkaline Phosphatase 66, Total Protein 8.1, Albumin 5.0 H, Globulin 3.1 , Albumin/Globulin Ratio 1.6 04/30/17 09:40: WBC 10.7, RBC 5.66, Hgb 17.7, Hct 49.3, MCV 87.1, MCH 31.3, MCHC 35.9, RDW 13.6, Plt Count 221, MPV 9.2, Gran % 75.7 H, Lymph % (Auto) 17.4 L, [place] % (Auto) 6.0, Eos % (Auto) 0.8 L, Baso % (Auto) 0.1, Gran # 8.07 H, Lymph # 1.9, [place] # 0.6, Eos # 0.1, Baso # 0.01 Temp Pulse Resp BP Pulse Ox 98.4 F 53 L 20 115/68 98 05/02/17 07:33 05/02/17 07:33 05/02/17 07:33 05/02/17 07:33 04/30/17 13:30 Temp Pulse Resp BP Pulse Ox 98.0 F 60 18 125/77 98 05/05/17 08:00 05/06/17 15:32 05/05/17 08:00 05/06/17 15:32 04/30/17 13:30 Temp Pulse Resp BP Pulse Ox 98.3 F 51 L 20 117/70 98 05/07/17 07:49 05/07/17 07:49 05/07/17 07:49 05/07/17 07:49 04/30/17 13:30 Vital Signs Temp Pulse Resp BP Pulse Ox 05/09/17 07:23 97.8 F 58 L 20 123/81 05/08/17 16:00 55 L 130/75 05/08/17 07:20 98.0 F 52 L 20 103/58 L 05/07/17 16:30 52 L 91/55 L 05/07/17 07:49 98.3 F 51 L 20 117/70 05/06/17 15:32 60 125/77 05/05/17 16:00 56 L 114/74 05/05/17 08:00 98.0 F 60 18 117/73 05/04/17 16:00 63 131/87 05/04/17 07:44 98.5 F 64 20 124/75 05/03/17 16:03 63 140/92 H 05/03/17 07:07 98.7 F 63 16 133/90 05/02/17 16:00 60 143/94 H 05/02/17 07:33 98.4 F 53 L 20 115/68 05/01/17 16:00 56 L 124/77 04/30/17 20:03 22 04/30/17 16:00 50 L 96/60 L 04/30/17 13:30 60 19 119/82 98 04/30/17 09:12 98.5 F 89 16 108/82 96 DSM 5 Symptoms Update: Patient is 61yo SWM with h/o depression and anxiety, h/o multiple admissions in the past (most recent was two months ago [facility] [place]), pt lives independently, has poor social support (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 pt was seen at the dinning room, patient said that he feels less anxious, and " I am doing better", when this policy writer typist asked if he is ready for discharged, pt said "Not yet, may be in couple of days...", pt seems not willing to be d/c due to uncertainty of his living situation (most likely pt will be evicted from the house, pt's sister involved, pt applied for pension). pt c/o insomnia and feeling anxoius at the night, will increase thorazine as per , pt's sister is involved, see note for more detailed information. pt has cognitive limitation, poverty of speech, thoughts. pt is not attending groups, self isolative. no aggression, no agitation. as per PCP med compliance is good, no side effects observed or reported, AIMS 0, no EPS. Impression: DSM 5 Diagnosis: MDD (major depressive disorder), recurrent episode, severe MERCEDES (generalized anxiety disorder) Neurocognitive disorder cannabis abuse Medication Change: Yes (thorazine increased) Medical Record Reviewed: Yes Consults ordered or reviewed: medical consult appreciated Mental Status Examination - Cognitive Function Orientation: Person, Place Memory: Impaired Attention: Poor (some improvement) Concentration: Poor (some improvementsome improvement) Association: Loose (baseline) Fund of Knowledge: Poor (baseline) - Mood Mood: Depressed (some improvement), Anxious ("I am less anxious") - Affect Affect: Constricted - Speech Speech: Slurred - Formal Thought Process Formal Thought Process: No Impairment, Other (poverty of thoughts and speech) - Suicidal Ideation Suicidal Ideation: No - Homicidal Ideation Homicidal Ideation: No Goal/Treatment Plan - Goal/Treatment Plan Need for Continued Stay: Remain at risks for inpatient hospitalization, Severe depression anxiety, Discharge may exacerbated symptoms, Severe functional impairment Progress Toward Problem(s) and Goals/Treatment Plan: milieu/structure/supportive therapy thorazine 50mghs for psychosis and insomnia effexor XR 75mg 3 tabs a day for depression and anxiety klonopin 0.5mg po tid scheduled for anxiety will consider wellbutrin for depression traZODone [Desyrel] 50 mg PO HS prn for depression and insomnia Cyclobenzaprine [Flexeril] 5 mg PO DAILY Gabapentin [Neurontin] 100 mg PO tid will be continued SW evaluation, collaterals from sister appreciated will monitor closely Estimated Date of D/C: 05/13/17 (will monitor closely)
--- NOTE | 2017-05-11 08:41 | PCM.PYCHPN ---
Psychiatric Progress Note - Psychiatric Progress Note Patient seen today, length of contact: 25 min Problems Identified/Issues Discussed: I reviewed recent notes and met with patient at bedside. He is calm and cooperative. Patient reports feeling alright and feels he is getting better since admission. Affect is quiet and constricted. Patient has been tolerating his medications and denies any new discomfort or pain. Sleep is "okay". Patient specifically denies wishes, suicidal thoughts or hallucinations. Responses remains brief without elaboration however they are coherent and relevant. Delusions were not elicited. Patient has been quiet on the unit, visible but not interactive. There were no major behavioral issues over the weekend. Diagnostic Results: MDD (major depressive disorder), recurrent episode, severe MERCEDES (generalized anxiety disorder) Neurocognitive disorder cannabis abuse Medication Change: No ( ) Medical Record Reviewed: Yes Mental Status Examination - Cognitive Function Orientation: Person, Place Memory: Impaired Attention: Poor (some improvement) Concentration: Poor (some improvementsome improvement) Association: Loose (baseline) Fund of Knowledge: Poor (baseline) - Mood Mood: Depressed ("all right"), Anxious ("I am less anxious") - Affect Affect: Constricted - Speech Speech: Appropriate - Formal Thought Process Formal Thought Process: No Impairment, Other (poverty of thoughts and speech) - Suicidal Ideation Suicidal Ideation: No - Homicidal Ideation Homicidal Ideation: No Goal/Treatment Plan - Goal/Treatment Plan Need for Continued Stay: Remain at risks for inpatient hospitalization, Severe depression anxiety, Discharge may exacerbated symptoms, Severe functional impairment Progress Toward Problem(s) and Goals/Treatment Plan: * c/w current tx and plan * No new weekend labs * Vitals reviewed and noted below: Selected Entries 05/10/17 05/10/17 07:46 16:00 Temperature 98.1 F Pulse Rate 20 L 54 L Blood Pressure 90/52 L 128/82 Estimated Date of D/C: 05/13/17 (will monitor closely)
[2017-05-11] MEDS: Venlafaxine 75 mg ER Cap PO SCH (08:59)
[2017-05-11] MEDS: Naproxen 550 mg Tab PO SCH ×2 (09:00→17:56)
[2017-05-12] MEDS: Venlafaxine 75 mg ER Cap PO SCH (08:58)
[2017-05-12] MEDS: Naproxen 550 mg Tab PO SCH ×2 (08:59→18:20)
--- NOTE | 2017-05-12 09:26 | PCM.PYCHPN ---
Psychiatric Progress Note - Psychiatric Progress Note Patient seen today, length of contact: 25 min Patient Chief Complaint: "depressed and hopeless" Problems Identified/Issues Discussed: I reviewed recent notes and met with patient at bedside. He is calm and cooperative. Today patient reports feeling depressed and hopeless. Still denies SI or HI. Affect is withdrawn and constricted. Patient has been tolerating his medications and denies any new discomfort or pain. Responses remains brief without elaboration however they are coherent and relevant. Delusions were not elicited. Patient has been quiet on the unit, visible but not interactive. There were no major behavioral issues over the weekend. Diagnostic Results: MDD (major depressive disorder), recurrent episode, severe MERCEDES (generalized anxiety disorder) Neurocognitive disorder cannabis abuse Medication Change: No ( ) Medical Record Reviewed: Yes Mental Status Examination - Cognitive Function Orientation: Person, Place Memory: Impaired Attention: Poor (some improvement) Concentration: Poor (some improvementsome improvement) Association: Loose (baseline) Fund of Knowledge: Poor (baseline) - Mood Mood: Depressed ("depressed and hopeless"), Anxious ("I am less anxious") - Affect Affect: Constricted - Speech Speech: Appropriate - Formal Thought Process Formal Thought Process: No Impairment, Other (poverty of thoughts and speech) - Suicidal Ideation Suicidal Ideation: No - Homicidal Ideation Homicidal Ideation: No Goal/Treatment Plan - Goal/Treatment Plan Need for Continued Stay: Remain at risks for inpatient hospitalization, Severe depression anxiety, Discharge may exacerbated symptoms, Severe functional impairment Progress Toward Problem(s) and Goals/Treatment Plan: * c/w current tx and plan * No new weekend labs * Vitals reviewed and noted below: Selected Entries 05/11/17 05/11/17 06:32 16:50 Temperature 97.6 F Pulse Rate 50 L 58 L Respiratory 19 Rate Blood Pressure 109/64 134/75 Estimated Date of D/C: 05/13/17 (will monitor closely)
[2017-05-13 07:51] VITALS: BP 102/62; PULSE 50; RESP 20; TEMP 98.1
[2017-05-13] MEDS: Venlafaxine 75 mg ER Cap PO SCH (09:25)
[2017-05-13] MEDS: Naproxen 550 mg Tab PO SCH (09:26)
== END 2017-05-13 15:20 | disposition home or self-care (01) | DRG 427 ==
LOC: ED 09:10 → ERH 11:27 → PSYC 13:47
PROVIDERS: ADMIT Psychiatry & Neurology Psychiatry; ATTEND Psychiatry & Neurology Psychiatry
DX: F43.23 Adjustment disorder with mixed anxiety and depressed mood (principal); I10 Essential (primary) hypertension; F60.7 Dependent personality disorder; F12.10 Cannabis abuse, uncomplicated; F41.1 Generalized anxiety disorder; F17.210 Nicotine dependence, cigarettes, uncomplicated; M06.9 Rheumatoid arthritis, unspecified; K57.90 Diverticulosis of intestine, part unspecified, without perforation or abscess without bleeding; Z90.49 Acquired absence of other specified parts of digestive tract